=== PATIENT | male | born 1940 | race African-American/Black ===

== ENCOUNTER 2017-11-07 11:30 | Emergency (ER) | payer OTHER, MEDICARE ==
[2017-11-07] MEDS ORDERED: PREDNISONE 20 MG TABLET PO ONE (11:48)
--- NOTE | 2017-11-07 11:49 | ER Document Report ---
ED Respiratory Problem - General Chief Complaint: Chest Congestion Stated Complaint: COUGH CONGESTION Time Seen by Provider: 11/07/17 11:39 Mode of Arrival: Ambulatory Information source: Patient Notes: 77-year-old male presents to ED for cough cold congestion times a week. He states he was treated at the doctor's office with antibiotics with no relief. He states he is having more trouble breathing and has become more short of breath. Denies any history of asthma or COPD or any kind of heart problems he does have elevated blood pressure and cholesterol. TRAVEL OUTSIDE OF THE [place] IN LAST 30 DAYS: No - HPI Patient complains to provider of: Cough Onset: Last week Duration: Continuous Initiating Event: URI Quality of pain: Achy Severity: Moderate Pain Level: 3 Cough: Productive Sputum color: Yellow Sputum consistency: Thick Associated symptoms: Congestion, Cough, PND, Runny nose, Sinus pain/pressure, Short of breath Similar symptoms previously: Yes Recently seen / treated by doctor: Yes - Related Data Allergies/Adverse Reactions: No Known Allergies Allergy (Verified 11/07/17 11:31) Past Medical History - General Information source: Patient - Social History Smoking Status: Former Smoker Cigarette use (# per day): No Chew tobacco use (# tins/day): No Smoking Education Provided: No Frequency of alcohol use: Rare Drug Abuse: None Lives with: Family Family History: DM, Malignancy Patient has suicidal ideation: No Patient has homicidal ideation: No - Past Medical History Cardiac Medical History: Reports: Hx Hypercholesterolemia, Hx Hypertension Pulmonary Medical History: Reports: None EENT Medical History: Reports: None Neurological Medical History: Reports: None Endocrine Medical History: Reports: Hx Diabetes Mellitus Type 2 Renal/ Medical History: Reports: None Malignancy Medical History: Reports None GI Medical History: Reports: Other - Inguinal hernias bilaterally and a abdominal hernia Musculoskeltal Medical History: Reports Hx Arthritis - KNEES, SHOULDERS AND BACK Skin Medical History: Reports None Psychiatric Medical History: Reports: None Traumatic Medical History: Reports: None Infectious Medical History: Reports: None Past Surgical History: Reports: Hx Abdominal Surgery - hernia repair, Hx Inguinal Hernia - Bilateral - Immunizations Immunizations up to date: Yes Hx Diphtheria, Pertussis, Tetanus Vaccination: Yes Review of Systems - Review of Systems Constitutional: No symptoms reported EENT: Nose congestion, Nose discharge, Sinus pressure, Sinus discharge Cardiovascular: No symptoms reported Respiratory: Cough, Short of breath, Wheezing Gastrointestinal: No symptoms reported Genitourinary: No symptoms reported Male Genitourinary: No symptoms reported Musculoskeletal: No symptoms reported Skin: No symptoms reported Hematologic/Lymphatic: No symptoms reported Neurological/Psychological: No symptoms reported -: Yes All other systems reviewed and negative Physical Exam - Vital signs Vitals: Temp Pulse Resp BP Pulse Ox 98.2 F 98 18 154/80 H 93 11/07/17 11:35 11/07/17 11:35 11/07/17 11:35 11/07/17 11:35 11/07/17 11:35 Interpretation: Normal - General General appearance: Appears well, Alert - HEENT Head: Normocephalic, Atraumatic Eyes: Normal Pupils: PERRL Ears: Normal External canal: Normal Tympanic membrane: Normal Sinus: Normal Nasal: Purulent discharge, Swelling Mouth/Lips: Normal Mucous membranes: Normal Pharynx: Post nasal drainage Neck: Normal - Respiratory Respiratory status: No respiratory distress Chest status: Nontender Breath sounds: Decreased air movement. No: Rales, Rhonchi, Stridor, Wheezing Chest palpation: Normal - Cardiovascular Rhythm: Regular Heart sounds: Normal auscultation Murmur: No - Abdominal Inspection: Normal Distension: No distension Bowel sounds: Normal Tenderness: Nontender Organomegaly: No organomegaly - Back Back: Normal, Nontender - Extremities General upper extremity: Normal inspection, Nontender, Normal color, Normal ROM , Normal temperature General lower extremity: Normal inspection, Nontender, Normal color, Normal ROM , Normal temperature, Normal weight bearing. No: Candido's sign - Neurological Neuro grossly intact: Yes Cognition: Normal Orientation: AAOx4 [place] Coma Scale Eye Opening: Spontaneous [place] Coma Scale Verbal: Oriented [place] Coma Scale Motor: Obeys Commands [place] Coma Scale Total: 15 Speech: Normal Motor strength normal: LUE, RUE, LLE, RLE Sensory: Normal - Psychological Associated symptoms: Normal affect, Normal mood - Skin Skin Temperature: Warm Skin Moisture: Dry Skin Color: Normal Course - Re-evaluation Re-evalutation: 11/07/17 12:51 Consistent with an upper respiratory infection with decreased breath sounds. Patient was treated with steroids and albuterol and nebulizers. He was discharged home with a prescription for prednisone and albuterol inhaler. Patient was instructed to follow-up with his primary doctor today or tomorrow. - Vital Signs Vital signs: Temp Pulse Resp BP Pulse Ox 98.2 F 98 18 154/80 H 93 11/07/17 11:35 11/07/17 11:35 11/07/17 11:35 11/07/17 11:35 11/07/17 11:35 - Diagnostic Test Radiology reviewed: Image reviewed, Reports reviewed Discharge - Discharge Clinical Impression: URI (upper respiratory infection) Qualifiers: URI type: unspecified URI Qualified Code(s): J06.9 - Acute upper respiratory infection, unspecified HTN (hypertension) Qualifiers: Hypertension type: unspecified Qualified Code(s): I10 - Essential (primary) hypertension Condition: Stable Disposition: HOME, SELF-CARE Additional Instructions: UPPER RESPIRATORY ILLNESS: You have a viral infection of the respiratory passages -- a "cold." This common infection causes nasal congestion, drainage, and often sore throat and cough. It is highly contagious. The disease usually lasts about 10 to 14 days. There is no "cure" for the viral infection -- it must run its course. If there is a complication, such as bacterial infection in the nose, sinuses, middle ear, or bronchial tubes, antibiotics may be required. The antibiotics won't affect the virus. Drink plenty of fluids. A humidifier may help. An expectorant medication or decongestant may make you more comfortable. Use acetaminophen or ibuprofen for fever or aches. See the doctor if fever persists over two days, if there is any significant worsening of your symptoms, or if you simply fail to improve as expected. BRONCHOSPASM: You have tightness in the bronchial tubes, called bronchospasm. This often occurs with bronchial infections. Allergies, inhaled chemicals, and polluted or cold air can also provoke bronchospasm. It's more likely in patients with asthma in the family. Emergency treatment of bronchospasm may include adrenaline shots or bronchodilator aerosol. You may feel lightheaded and have a rapid pulse for an hour or two. Rest and get plenty of fluids. At home, we'll treat you with a bronchodilator inhaler. Antibiotics and corticosteroids may be required for some patients. Until you recover, avoid chemical fumes, dusts, pollens, and exercising in very cold or dry air. If you smoke, stop now!! If you develop a fever, increased wheezing, chest pain, or severe shortness of breath, you should contact the doctor immediately. COUGH-SUPPRESSANT & EXPECTORANT MEDICATION: You are to use a cough medication as needed for relief of symptoms. This medicine is a combination of an expectorant (to make the mucous thinner and more easily "coughed up") and a cough suppressant (to reduce the frequency of coughing). The cough-suppressant medicine is related to narcotics. You may experience mild nausea and sleepiness. Some patients who are very sensitive to narcotics may have stomach pain from this medicine. Taking the medicine with food reduces these side effects. Do not drive or work with machinery until you know how this medicine affects you. The expectorant should have no side effects. Iodine-containing expectorants (such as organidin) should not be taken by persons with active thyroid disease unless approved by your doctor. Call the doctor if you develop shortness of breath, hives, rash, itching, lightheadedness, or severe nausea and vomiting. INHALED BRONCHODILATORS: You have received a treatment of and/or prescription for an inhaled bronchodilator -- a medication which stimulates the airways in the lung to dilate. This improves the flow of air in asthma, bronchitis, and emphysema. These medicines have some similarity to adrenaline, and can cause similar side effects: shakiness, racing heart, and a sense of nervousness. These side effects decrease with time. Contact your doctor if these side effects are severe. Do not over-use the medicine. Too-frequent use of the inhaler may make it ineffective. Call your doctor if the inhaler is not controlling your symptoms at the prescribed doses. STEROID MEDICATION: You have been given an injection of or oral medicine of the cortisone/ steroid class. This medication is used to control inflammation or allergy. Raji t is usually only given for a short period of time, until the acute process subsides. There are usually no side effects from short-term use of cortisone-like medications. Some persons feel an increased sense of well-being and are not sleepy at bedtime. Long-term use of cortisone medications is best avoided, unless required for a severe condition. If your condition does not remit, or relapses after the course of corticosteroid medication, you should consult your physician. USE OF ACETAMINOPHEN (Tylenol): Acetaminophen may be taken for pain relief or fever control. It's much safer than aspirin, offering a wider range of "safe" dosages. It is safe during . Some brand names are Tylenol, Panadol, Datril, Anacin 3, Tempra, and Liquiprin. Acetaminophen can be repeated every four hours. The following are maximum recommended dosages: >89 pounds or adults 650 mg to 900 mg Acetaminophen can be repeated every four hours. Maximum dose not to exceed 4000 mg a day. FOLLOW-UP CARE: If you have been referred to a physician for follow-up care, call the physician s office for an appointment as you were instructed or within the next two days. If you experience worsening or a significant change in your symptoms, notify the physician immediately or return to the Emergency Department at any time for re-evaluation. Prescriptions: Albuterol Sulfate [Proair HFA Inhalation Aerosol 8.5 gm MDI] 2 puff IH Q4H PRN # 1 mdi PRN Reason: Prednisone [Deltasone 20 mg Tablet] 3 tab PO DAILY 5 Days tablet Forms: Elevated Blood Pressure Referrals: ROGER AMEZCUA MD [ACTIVE STAFF] - Follow up as needed
[2017-11-07] MEDS: ALBUTEROL SULFATE 0.083% NEB 2.5 MG/3 ML AMPUL NEB SCH ×3 (12:10→12:55)
--- NOTE | 2017-11-07 12:15 | RADIOLOGY REPORT (SQ) ---
EXAM DESCRIPTION: CHEST PA/LAT COMPLETED DATE/TIME: 11/07/2017 12:03 pm REASON FOR STUDY: Cough congestion decreased breath sounds COMPARISON: April 2007 EXAM PARAMETERS: NUMBER OF VIEWS: two views TECHNIQUE: Digital Frontal and Lateral radiographic views of the chest acquired. RADIATION DOSE: NA LIMITATIONS: none FINDINGS: LUNGS AND PLEURA: No opacities, masses or pneumothorax. No pleural effusion. MEDIASTINUM AND HILAR STRUCTURES: No masses or contour abnormalities. HEART AND VASCULAR STRUCTURES: Heart normal size. Tortuous thoracic aorta is identified. No evidenc e for failure. BONES: No acute findings. HARDWARE: None in the chest. OTHER: No other significant finding. IMPRESSION: NO SIGNIFICANT RADIOGRAPHIC FINDING IN THE CHEST. TECHNICAL DOCUMENTATION: JOB ID: [id number] [employer]- All Rights Reserved
[2017-11-07 13:19] VITALS: BP 147/73
== END 2017-11-07 13:18 | disposition home or self-care (01) ==
LOC: ER 11:30
DX: J06.9 Acute upper respiratory infection, unspecified (principal); R09.89 Other specified symptoms and signs involving the circulatory and respiratory systems; R06.02 Shortness of breath; R05 Cough; J34.89 Other specified disorders of nose and nasal sinuses; R09.82 Postnasal drip; R09.81 Nasal congestion; R06.2 Wheezing; I10 Essential (primary) hypertension; E11.9 Type 2 diabetes mellitus without complications; Z87.891 Personal history of nicotine dependence
CPT/HCPCS: 94640 ×2; 99283; 71046; J7512

== ENCOUNTER 2018-11-12 09:33 | Emergency (ER) | payer OTHER, MEDICARE ==
[2018-11-12] MEDS ORDERED: ASPIRIN 81 MG TABLET, CHEWABLE PO ONE (10:18)
--- NOTE | 2018-11-12 10:20 | ER Document Report ---
ED Medical Screen (RME) - General Chief Complaint: Chest Pain Stated Complaint: CHEST PAIN Time Seen by Provider: 11/12/18 10:18 Notes: 78 years old male with history of hypertension presents today with 2-day history of substernal pain described as burning sensation. States it came on after taking 4 pills in milk yesterday morning. Denies any nausea vomiting palpitation or diaphoresis. TRAVEL OUTSIDE OF THE [place] IN LAST 30 DAYS: No - Related Data Allergies/Adverse Reactions: No Known Allergies Allergy (Verified 11/12/18 09:36) Past Medical History - Social History Chew tobacco use (# tins/day): No Frequency of alcohol use: Rare Drug Abuse: None - Past Medical History Cardiac Medical History: Reports: Hx Hypercholesterolemia, Hx Hypertension Endocrine Medical History: Reports: Hx Diabetes Mellitus Type 2 Renal/ Medical History: Denies: Hx Peritoneal Dialysis Musculoskeltal Medical History: Reports Hx Arthritis - KNEES, SHOULDERS AND BACK Past Surgical History: Reports: Hx Abdominal Surgery - hernia repair, Hx Inguinal Hernia - Bilateral - Immunizations Immunizations up to date: Yes Hx Diphtheria, Pertussis, Tetanus Vaccination: Yes Physical Exam - Vital signs Vitals: Temp Pulse Resp BP Pulse Ox 98.5 F 95 20 159/87 H 93 11/12/18 09:58 11/12/18 09:58 11/12/18 09:58 11/12/18 09:58 11/12/18 09:58 Course - Vital Signs Vital signs: Temp Pulse Resp BP Pulse Ox 98.5 F 95 20 159/87 H 93 11/12/18 09:58 11/12/18 09:58 11/12/18 09:58 11/12/18 09:58 11/12/18 09:58
--- NOTE | 2018-11-12 10:37 | RADIOLOGY REPORT (SQ) ---
EXAM DESCRIPTION: CHEST SINGLE VIEW COMPLETED DATE/TIME: 11/12/2018 10:27 am REASON FOR STUDY: Chest pain COMPARISON: 11/07/2017 EXAM PARAMETERS: NUMBER OF VIEWS: One view. TECHNIQUE: Single frontal radiographic view of the chest acquired. RADIATION DOSE: NA LIMITATIONS: None. FINDINGS: LUNGS AND PLEURA: No opacities, masses or pneumothorax. No pleural effusion. MEDIASTINUM AND HILAR STRUCTURES: Calcified hilar nodes. Stable prominent central vasculature withou t overt edema. HEART AND VASCULAR STRUCTURES: Normal heart size. Unfolded thoracic aorta, stable. BONES: No acute findings. HARDWARE: None in the chest. OTHER: No other significant finding. IMPRESSION: No evidence of acute cardiopulmonary process. TECHNICAL DOCUMENTATION: JOB ID: [id number] [employer]- All Rights Reserved Reading location - IP/workstation name: [email or web address]
--- NOTE | 2018-11-12 11:07 | EKG REPORT ---
SEVERITY:- ABNORMAL ECG - SINUS RHYTHM LEFT VENTRICULAR HYPERTROPHY NONSPECIFIC ST-T CHANGES- INFERIOR LEADS : Confirmed by: Aris Fry MD 12-Nov-2018 11:06:23
[2018-11-12 12:03] LABS: ABSOLUTE EOSINOPHILS # (AUTO) 0.1 10^3/uL (0.0-0.6); ABSOLUTE LYMPHOCYTES (AUTO) 0.9 10^3/uL (0.5-4.7); ABSOLUTE MONOCYTES (AUTO) 0.3 10^3/uL (0.1-1.4); ABSOLUTE NEUT (AUTO) 3.1 10^3/uL (1.7-8.2); BASOPHILS % (AUTO) 0.7 % (0-2); HEMATOCRIT 41.2 % (37.9-51.0); HEMOGLOBIN 13.8 g/dL (13.5-17.0); LYMPHOCYTES % (AUTO) 20.5 % (13-45); MEAN CORPUSCULAR HEMOGLOBIN 30.2 pg (27.0-33.4); MEAN CORPUSCULAR HGB CONC 33.5 g/dL (32.0-36.0); MEAN CORPUSCULAR VOLUME 90 fl (80-97); MONOCYTES % (AUTO) 7.4 % (3-13); PLATELET COUNT 165 10^3/uL (150-450); RED BLOOD COUNT 4.57 10^6/uL (4.35-5.55); RED CELL DISTRIBUTION WIDTH 13.9 % (11.5-14.0); SEGMENTED NEUTROPHILS % (AUTO) 69.4 % (42-78); TOTAL CELLS COUNTED % (AUTO) 100 %; WHITE BLOOD COUNT 4.5 10^3/uL (4.0-10.5)
[2018-11-12 12:35] LABS: CREATINE KINASE MB 0.57 ng/mL (<4.55)
[2018-11-12 12:36] LABS: TROPONIN I < 0.012 ng/mL
--- NOTE | 2018-11-12 13:24 | ER Document Report ---
ED General - General Chief Complaint: Chest Pain Stated Complaint: CHEST PAIN Time Seen by Provider: 11/12/18 10:18 TRAVEL OUTSIDE OF THE [place] IN LAST 30 DAYS: No - HPI Notes: Patient is a 78-year-old male with a history of hypertension, GERD, and type 2 diabetes who presents to the emergency department for primary complaint that his blood pressure was higher than normal when he was at his foot doctors today. Patient does go on to state that yesterday he took his medicines with milk and noticed indigestion immediately thereafter which was resolved immediately with water intake and food. Patient states that he did not have any other issues until early this morning when he felt some more indigestion burning in the chest which then resolved after 1-2 minutes. Patient states that his blood pressure is usually 130 systolic over 70s or 80s. Patient states that he did not take his Lasix today, however. Patient states that the discomfort never radiated and he has felt symptoms like this previously with indigestion. He denies any significant cardiac pulmonary medical history otherwise. He was recently treated for an upper respiratory infection about a week ago. He has been eating and drinking without difficulty. He is urinating normally and having normal bowel movements. He has no other concerns or complaints. Denies any headache, fever, neck pain, URI, sore throat, palpitations, syncope, cough, shortness of breath, wheeze, dyspnea, abdominal pain, nausea/vomiting/diarrhea, urinary retention, dysuria, hematuria, back pain, or rash. - Related Data Allergies/Adverse Reactions: No Known Allergies Allergy (Verified 11/12/18 09:36) Past Medical History - Social History Smoking Status: Never Smoker Chew tobacco use (# tins/day): No Frequency of alcohol use: Rare Drug Abuse: None Family History: DM, Malignancy Patient has suicidal ideation: No Patient has homicidal ideation: No - Past Medical History Cardiac Medical History: Reports: Hx Hypercholesterolemia, Hx Hypertension Endocrine Medical History: Reports: Hx Diabetes Mellitus Type 2 Renal/ Medical History: Denies: Hx Peritoneal Dialysis Musculoskeletal Medical History: Reports Hx Arthritis - KNEES, SHOULDERS AND BACK Past Surgical History: Reports: Hx Abdominal Surgery - hernia repair, Hx Inguinal Hernia - Bilateral - Immunizations Immunizations up to date: Yes Hx Diphtheria, Pertussis, Tetanus Vaccination: Yes Review of Systems - Review of Systems -: Yes All other systems reviewed and negative Physical Exam - Vital signs Vitals: Temp Pulse Resp BP Pulse Ox 98.5 F 95 20 159/87 H 93 11/12/18 09:58 11/12/18 09:58 11/12/18 09:58 11/12/18 09:58 11/12/18 09:58 - Notes Notes: PHYSICAL EXAMINATION: GENERAL: Well-appearing, well-nourished and in no acute distress. HEAD: Atraumatic, normocephalic. EYES: Pupils equal round and reactive to light, extraocular movements intact, sclera anicteric, conjunctiva are normal. ENT: Nares patent and without discharge. oropharynx clear without exudates. No tonsilar hypertrophy or erythema. Moist mucous membranes. NECK: Normal range of motion, supple without lymphadenopathy LUNGS: Breath sounds clear to auscultation bilaterally and equal. No wheezes rales or rhonchi. HEART: Regular rate and rhythm without murmurs, rubs, gallops. ABDOMEN: Soft, nontender, nondistended abdomen. No guarding, no rebound. Normal bowel sounds present. No CVA tenderness bilaterally. Musculoskeletal: FROM to passive/active. Strength 5+/5. Candido neg. No asymmetry to LE's. Extremities: No cyanosis, clubbing, or edema b/l. Peripheral pulses 2+. Capillary refill less than 3 seconds. NEUROLOGICAL: Normal speech, normal gait. PSYCH: Normal mood, normal affect. SKIN: Warm, Dry, normal turgor, no rashes or lesions noted. Course - Re-evaluation Re-evalutation: 11/12/18 13:26 Patient states that he came because of his blood pressure and has not had any chest discomfort since the initial burning earlier this morning. Patient states that he was able to ambulate without any dyspnea on exertion or any development of pain. The only blood pressure pill he did not take this morning was his Lasix because he did not have any food in his stomach at that time. Otherwise, patient states that he feels well and has no other concerns. We will wait for his labs to return and further evaluate at that time. 11/12/18 16:15 Patient is an afebrile, well-hydrated 78-year-old male who presents to the ED with elevated blood pressure and chest pain, unspecified, but I have a suspicion for indigestion as etiology. Vitals are acceptable without any significant tachycardia, tachypnea, or hypoxia. PE is otherwise unremarkable. Patient is nontoxic-appearing and is tolerating p.o. without any difficulties. Pt is currently asymptomatic and has been since the 'burning' sensation this morning that lasted only a brief time with similar incident the day prior that was resolved with food and water immediately after onset. CBC, CMP, EKG/cardiac enzymes 2, BNP, chest x-ray are all unremarkable for any acute pathology. Patient does not have any chest pain, dyspnea, or shortness of breath. He presented only because his blood pressure was elevated (asymptomatic). Patient's presentation and symptomatology creates low suspicion for ACS, PE, pneumothorax, pericarditis, dissection, respiratory compromise, severe dehydration, sepsis, meningitis, or other systemic emergent condition at this time. Patient is aware that his condition can change from initial presentation and he needs to monitor symptoms closely and seek medical attention for any acute changes. Pt is feeling better and would like to go home. Pt is already on prilosec. Recommend conservative measures for symptoms. Recheck with your PCM in 2-3 days. Consider consult with Cardiology. Return to the ED with any worsening/concerning symptoms otherwise as reviewed in discharge. Patient is in agreement. - Vital Signs Vital signs: Temp Pulse Resp BP Pulse Ox 98.5 F 95 16 146/86 H 94 11/12/18 09:58 11/12/18 09:58 11/12/18 16:02 11/12/18 16:02 11/12/18 16:02 - Laboratory Result Diagrams: 11/12/18 11:36 11/12/18 13:00 Laboratory results interpreted by me: 11/12/18 13:00 Carbon Dioxide 34 H Discharge - Discharge Clinical Impression: Elevated blood pressure reading, Atypical chest pain Condition: Stable Disposition: HOME, SELF-CARE Instructions: Chest Pain of Unclear Cause ([facility]) Additional Instructions: Maintain adequate fluid and food intake Take home medications as directed healthy diet/exercise Monitor blood pressure daily and keep a log Monitor symptoms for any acute changes Recheck with your PCM in 2-3 days Consider a follow-up with cardiology Return to the ED with any worsening symptoms and/or development of fever, heada dianna, chest pain, palpitations, syncope, shortness of breath, trouble breathing, abdominal pain, n/v/d, blood in stool/urine, loss of control of bowel/bladder, urinary retention, muscle weakness/paralysis, numbness/tingling, or other worsening symptoms that are concerning to you. Forms: Elevated Blood Pressure Referrals: ROGER AMEZCUA MD [Primary Care Provider] - 11/14/18
[2018-11-12 13:38] LABS: ALANINE AMINOTRANSFERASE 24 U/L (21-72); ALBUMIN 4.9 g/dL (3.5-5.0); ALKALINE PHOSPHATASE 59 U/L (38-126); ANION GAP 7 (5-19); ASPARTATE AMINO TRANSFERASE 17 U/L (17-59); BILIRUBIN,DIRECT 0.2 mg/dL (0.0-0.4); BILIRUBIN,TOTAL 0.6 mg/dL (0.2-1.3); BLOOD UREA NITROGEN 15 mg/dL (7-20); CALCIUM 9.5 mg/dL (8.4-10.2); CARBON DIOXIDE 34 mmol/L (22-30); CHLORIDE 102 mmol/L (98-107); CREATINE KINASE 98 U/L (55-170); GLUCOSE 85 mg/dL (75-110); POTASSIUM 4.4 mmol/L (3.6-5.0); SODIUM 143.2 mmol/L (137-145); TOTAL PROTEIN 8.1 g/dL (6.3-8.2)
[2018-11-12 14:21] LABS: NT PRO BNP 22 pg/mL (<450)
[2018-11-12 14:22] LABS: TROPONIN I < 0.012 ng/mL
[2018-11-12 16:27] VITALS: BP 149/81
== END 2018-11-12 16:16 | disposition home or self-care (01) ==
LOC: ER 09:33
DX: I10 Essential (primary) hypertension (principal); T50.1X6A Underdosing of loop [high-ceiling] diuretics, initial encounter; Z91.128 Patient's intentional underdosing of medication regimen for other reason; Z91.14 Patient's other noncompliance with medication regimen; R07.89 Other chest pain; E11.9 Type 2 diabetes mellitus without complications; Z79.899 Other long term (current) drug therapy
CPT/HCPCS: 36415; 71045; 80053; 82550; 82553; 83880; 84484; 85025; 93005; 93010; 99285

== ENCOUNTER → 2018-11-19 | Outpatient (CLI) | payer OTHER, MEDICARE ==
[~2018-11-19] MED LIST: REGADENOSON INJ 0.4 MG/5 ML DISP.SYRIN IV ONE
--- NOTE | 2018-11-21 23:41 | DRAGON STRESS TEST REPORT ---
Intravenous Lexiscan Cardiolite stress test using single photon emmision computerized tomography. Date of procedure: 11/19/2018. Ordering Provider Dr. Fran Bullard.:Patient's status: Out Patient. Indication: Chest pain. Coronary risk factors: Age, diabetes mellitus, hypertension, and dyslipidemia. Resting EKG: Sinus Rhythm. Nonspecific ST-T changes lateral leads. Stress EKG: No changes of ischemia. The patient had no chest pain or discomfort, and there were no arrhythmias seen. Reason for termination: Protocol. Conclusions: Normal EKG and hemodynamic response to IV Lexiscan. Nuclear data: At rest the patient was given 14.97 millicuries of technetium 99m sestamibi injected intravenously. As per protocol rest non gated SPECT images were obtained. Subsequently the patient was given intravenous Lexiscan at a dose of 0.4 mg in 5 mL intravenously, followed by flush with normal saline. Subsequently the stress dose of 45.7 millicuries of technetium 99m sestamibi was injected intravenously. As per protocol stress gated images were obtained. Nuclear interpretation: Review of images showed that all segments of the myocardium had normal perfusion at rest, and normal perfusion post stress with IV Lexiscan. All segments of the myocardium had normal motion, contraction, and thickening by gated study. T. I D. ratio was normal at 1.00. There is no transient ischemic dilatation of the left ventricle. Computer read rest, and stress left ventricular ejection fraction were 55 %, and 54 %, respectively. Visually both the stress and rest ejection fractions were normal, and greater than 55%. Conclusion: 1. There is no scintigraphic evidence of Lexiscan induced myocardial ischemia. 2. There is no scintigraphic evidence of myocardial infarction/scar. Recommendations: Aggressive risk factor modification, and treating the underlying co- morbidities. [facility]
== END ==
LOC: RAD 07:45
PROVIDERS: ATTEND Internal Medicine
DX: R07.9 Chest pain, unspecified (principal)
CPT/HCPCS: 93017; 78452; A9500; J2785; Q9969

== ENCOUNTER 2020-01-16 11:15 | Emergency (ER) | payer OTHER, MEDICARE ==
--- NOTE | 2020-01-16 11:48 | ER Document Report ---
ED Medical Screen (RME) - General Chief Complaint: Allergy Symptoms Stated Complaint: ALLERGY SYMPTOMS Time Seen by Provider: 01/16/20 11:41 Primary Care Provider: ROGER AMEZCUA MD [Primary Care Provider] - Follow up as needed Mode of Arrival: Ambulatory Information source: Patient Notes: 80-year-old male with high blood pressure presents emergency department with complaints of headache and bad cough. Reports the cough kept him up all night. Denies fever vomiting diarrhea. Reports history of seasonal allergies. Also complains of chronic back and leg pain. Patient does complain of some chest pain but only when he coughs. I have greeted and performed a rapid initial assessment of this patient. A comprehensive ED assessment and evaluation of the patient, analysis of test results and completion of the medical decision making process will be conducted by additional ED providers. TRAVEL OUTSIDE OF THE [place] IN LAST 30 DAYS: No - Related Data Allergies/Adverse Reactions: No Known Allergies Allergy (Verified 01/16/20 11:41) Past Medical History - Past Medical History Cardiac Medical History: Reports: Hx Hypercholesterolemia, Hx Hypertension Endocrine Medical History: Reports: Hx Diabetes Mellitus Type 2 Renal/ Medical History: Denies: Hx Peritoneal Dialysis Musculoskeltal Medical History: Reports Hx Arthritis - KNEES, SHOULDERS AND BACK Past Surgical History: Reports: Hx Abdominal Surgery - hernia repair, Hx Inguinal Hernia - Bilateral - Immunizations Immunizations up to date: Yes Hx Diphtheria, Pertussis, Tetanus Vaccination: Yes Physical Exam - Vital signs Vitals: Temp Pulse Resp BP Pulse Ox 98.7 F 113 H 16 160/79 H 95 01/16/20 11:20 01/16/20 11:20 01/16/20 11:20 01/16/20 11:20 01/16/20 11:20 Course - Vital Signs Vital signs: Temp Pulse Resp BP Pulse Ox 98.7 F 113 H 16 160/79 H 95 01/16/20 11:20 01/16/20 11:20 01/16/20 11:20 01/16/20 11:20 01/16/20 11:20 Doctor's Discharge - Discharge Referrals: ROGER AMEZCUA MD [Primary Care Provider] - Follow up as needed
--- NOTE | 2020-01-16 12:19 | RADIOLOGY REPORT (SQ) ---
EXAM DESCRIPTION: CHEST 2 VIEWS COMPLETED DATE/TIME: 01/16/2020 12:02 pm REASON FOR STUDY: cough COMPARISON: Chest radiographs 11/12/2018 and 11/07/2017 EXAM PARAMETERS: NUMBER OF VIEWS: two views TECHNIQUE: Digital Frontal and Lateral radiographic views of the chest acquired. RADIATION DOSE: NA LIMITATIONS: none FINDINGS: LUNGS AND PLEURA: No opacities, masses or pneumothorax. No pleural effusion. MEDIASTINUM AND HILAR STRUCTURES: Unchanged cardiomediastinal contours are tortuosity of the thoracic aorta. HEART AND VASCULAR STRUCTURES: Heart normal size. No evidence for failure. BONES: No acute findings. HARDWARE: None in the chest. OTHER: No other significant finding. IMPRESSION: Unchanged chest. No acute pulmonary findings. TECHNICAL DOCUMENTATION: JOB ID: [id number] 2010 [employer]- All Rights Reserved Reading location - IP/workstation name: [email or web address]
[2020-01-16 12:27] LABS: ABSOLUTE EOSINOPHILS # (AUTO) 0.1 10^3/uL (0.0-0.6); ABSOLUTE LYMPHOCYTES (AUTO) 0.4 10^3/uL (0.5-4.7); ABSOLUTE MONOCYTES (AUTO) 0.7 10^3/uL (0.1-1.4); ABSOLUTE NEUT (AUTO) 3.9 10^3/uL (1.7-8.2); BASOPHILS % (AUTO) 0.5 % (0-2); EOSINOPHILS % (AUTO) 1.6 % (0-6); HEMATOCRIT 38.5 % (37.9-51.0); HEMOGLOBIN 13.1 g/dL (13.5-17.0); MEAN CORPUSCULAR HEMOGLOBIN 30.6 pg (27.0-33.4); MEAN CORPUSCULAR HGB CONC 34.1 g/dL (32.0-36.0); MEAN CORPUSCULAR VOLUME 90 fl (80-97); MONOCYTES % (AUTO) 13.4 % (3-13); PLATELET COUNT 147 10^3/uL (150-450); RED BLOOD COUNT 4.29 10^6/uL (4.35-5.55); SEGMENTED NEUTROPHILS % (AUTO) 77.5 % (42-78); TOTAL CELLS COUNTED % (AUTO) 100 %
[2020-01-16 12:47] LABS: ALBUMIN 4.1 g/dL (3.5-5.0); ALKALINE PHOSPHATASE 60 U/L (38-126); ANION GAP 7 (5-19); ASPARTATE AMINO TRANSFERASE 20 U/L (17-59); BILIRUBIN,DIRECT 0.2 mg/dL (0.0-0.4); BILIRUBIN,TOTAL 0.7 mg/dL (0.2-1.3); BLOOD UREA NITROGEN 17 mg/dL (7-20); CALCIUM 8.9 mg/dL (8.4-10.2); CARBON DIOXIDE 33 mmol/L (22-30); CHLORIDE 99 mmol/L (98-107); GLUCOSE 116 mg/dL (75-110); POTASSIUM 4.1 mmol/L (3.6-5.0); TOTAL PROTEIN 7.5 g/dL (6.3-8.2)
--- NOTE | 2020-01-16 13:43 | ER Document Report ---
ED General - General Chief Complaint: Cough Stated Complaint: ALLERGY SYMPTOMS Time Seen by Provider: 01/16/20 11:41 Primary Care Provider: ROGER AMEZCUA MD [Primary Care Provider] - Follow up as needed Mode of Arrival: Ambulatory Notes: Patient is a 80-year-old -K[place] male with a past medical history of seasonal allergies and hypertension who presents to the emergency department with a chief complaint of cough that began about 2 days ago. Patient reports he took some Mucinex and some Zyrtec with minimal relief. He states he was exposed to some friends at the [facility] recently who were sick with cough. He states the cough is primarily dry in nature. He is unsure of any fever. Denies any sore throat, body aches, vomiting or diarrhea. Does admit to some occasional sne ezing and watery eyes. TRAVEL OUTSIDE OF THE [place] IN LAST 30 DAYS: No - Related Data Allergies/Adverse Reactions: No Known Allergies Allergy (Verified 01/16/20 11:41) Home Medications: htn. dm Past Medical History - General Information source: Patient - Social History Smoking Status: Former Smoker Chew tobacco use (# tins/day): No Frequency of alcohol use: Occasional Drug Abuse: None Family History: DM, Malignancy Patient has suicidal ideation: No Patient has homicidal ideation: No - Past Medical History Cardiac Medical History: Reports: Hx Hypercholesterolemia, Hx Hypertension Endocrine Medical History: Reports: Hx Diabetes Mellitus Type 2 Renal/ Medical History: Denies: Hx Peritoneal Dialysis Musculoskeletal Medical History: Reports Hx Arthritis - KNEES, SHOULDERS AND BACK Past Surgical History: Reports: Hx Abdominal Surgery - hernia repair, Hx Inguinal Hernia - Bilateral - Immunizations Immunizations up to date: Yes Hx Diphtheria, Pertussis, Tetanus Vaccination: Yes Review of Systems - Review of Systems Notes: As per HPI otherwise negative Physical Exam - Vital signs Vitals: Temp Pulse Resp BP Pulse Ox 98.7 F 113 H 16 160/79 H 95 01/16/20 11:20 01/16/20 11:20 01/16/20 11:20 01/16/20 11:20 01/16/20 11:20 - General General appearance: Appears well, Alert In distress: None - HEENT Head: Normocephalic, Atraumatic Eyes: Normal Conjunctiva: Normal Extraocular movements intact: Yes Eyelashes: Normal Pupils: PERRL Ears: Normal External canal: Normal Tympanic membrane: Normal Sinus: Normal Nasal: Normal Mouth/Lips: Normal Mucous membranes: Normal Pharynx: Normal Neck: Normal - Respiratory Respiratory status: Other - Decreased breath sounds throughout Chest status: Nontender Breath sounds: Decreased air movement Chest palpation: Normal - Cardiovascular Rhythm: Regular Heart sounds: Normal auscultation - Neurological Neuro grossly intact: Yes Cognition: Normal Orientation: AAOx4 [place] Coma Scale Eye Opening: Spontaneous [place] Coma Scale Verbal: Oriented [place] Coma Scale Motor: Obeys Commands [place] Coma Scale Total: 15 Speech: Normal - Psychological Associated symptoms: Normal affect, Normal mood - Skin Skin Temperature: Warm Skin Moisture: Dry Skin Color: Normal Course - Re-evaluation Re-evalutation: 01/16/20 13:45 Patient is a mixed presentation upon my evaluation of him. He denies any recent travel or known exposures to patients under investigation for the novel coronavirus however he does admit to being exposed to some individuals who are sick at a local [employer]. I suspect the etiology of his cough and other symptoms are from allergic rhinitis however novel coronavirus is in the differential. His chest x-ray was negative. Work-up otherwise not remarkable for significant infection. Will swab him for influenza. If negative he will be tested for novel coronavirus. He is in a room with a mask on behind a close door at this time. 01/16/20 15:39 Flu swabs negative. Patient was tested for the novel coronavirus. He is now a patient under investigation. He was explained in depth how to self quarantine at home. He was given the necessary paperwork and information. We will give him Tessalon Perles for cough and Claritin for allergy symptoms. Counseled him at length regarding the importance of outpatient follow-up and advised to return here or any ER immediately with any new, persistent or worsening symptoms. He verbalized understood and agreed. - Vital Signs Vital signs: Temp Pulse Resp BP Pulse Ox 98.7 F 113 H 16 160/79 H 95 01/16/20 11:20 01/16/20 11:20 01/16/20 11:20 01/16/20 11:20 01/16/20 11:20 - Laboratory Result Diagrams: 01/16/20 12:15 01/16/20 12:15 Laboratory results interpreted by me: 01/16/20 01/16/20 12:15 12:15 RBC 4.29 L Hgb 13.1 L Plt Count 147 L Lymph % (Auto) 7.0 L Leake % (Auto) 13.4 H Absolute Lymphs (auto) 0.4 L Carbon Dioxide 33 H Glucose 116 H Discharge - Discharge Clinical Impression: PUI Covid-19, Cough Allergic rhinitis Qualifiers: Allergic rhinitis trigger: other Allergic rhinitis seasonality: unspecified Qualified Code(s): J30.89 - Other allergic rhinitis Condition: Stable Disposition: HOME, SELF-CARE Instructions: Hay Fever ([facility]) Additional Instructions: Please self quarantine at home while you are awaiting results of your coronavirus testing today. Return here or any ER immediately with any new, persistent or worsening symptoms. Prescriptions: Benzonatate [Tessalon Perles 100 mg Capsule] 100 mg PO Q8HP PRN #20 capsule PRN Reason: Loratadine [Allergy Relief] 10 mg PO DAILY #20 tablet Referrals: ROGER AMEZCUA MD [Primary Care Provider] - Follow up as needed
[2020-01-16 14:27] LABS: A TYPE INFLUENZA AG NEGATIVE (NEGATIVE); B INFLUENZA AG NEGATIVE (NEGATIVE)
[2020-01-16 16:30] VITALS: BP 164/77
--- NOTE | 2020-01-18 00:27 | EKG REPORT ---
SEVERITY:- ABNORMAL ECG - SINUS TACHYCARDIA PROBABLE LVH WITH SECONDARY REPOL ABNRM : Confirmed by: Claire Post 18-Jan-2020 00:27:33
== END 2020-01-16 16:27 | disposition home or self-care (01) ==
LOC: ER 11:15
DX: J30.2 Other seasonal allergic rhinitis (principal); R05 Cough; R06.7 Sneezing; I10 Essential (primary) hypertension; E11.9 Type 2 diabetes mellitus without complications; Z79.899 Other long term (current) drug therapy; Z87.891 Personal history of nicotine dependence; Z20.828 Contact with and (suspected) exposure to other viral communicable diseases
CPT/HCPCS: 36415; 71046; 80053; 84484; 85025; 87635; 87804; 93005; 93010; 99284

== ENCOUNTER → 2020-03-29 | Outpatient (CLI) | payer OTHER, MEDICARE ==
[2020-03-29 12:34] LABS: ABSOLUTE EOSINOPHILS # (AUTO) 0.1 10^3/uL (0.0-0.6); ABSOLUTE LYMPHOCYTES (AUTO) 1.1 10^3/uL (0.5-4.7); ABSOLUTE MONOCYTES (AUTO) 0.4 10^3/uL (0.1-1.4); ABSOLUTE NEUT (AUTO) 2.7 10^3/uL (1.7-8.2); BASOPHILS % (AUTO) 0.9 % (0-2); HEMATOCRIT 41.5 % (37.9-51.0); HEMOGLOBIN 14.2 g/dL (13.5-17.0); LYMPHOCYTES % (AUTO) 25.5 % (13-45); MEAN CORPUSCULAR HEMOGLOBIN 30.3 pg (27.0-33.4); MEAN CORPUSCULAR HGB CONC 34.3 g/dL (32.0-36.0); MEAN CORPUSCULAR VOLUME 88 fl (80-97); MONOCYTES % (AUTO) 9.4 % (3-13); PLATELET COUNT 170 10^3/uL (150-450); RED CELL DISTRIBUTION WIDTH 13.7 % (11.5-14.0); SEGMENTED NEUTROPHILS % (AUTO) 61.2 % (42-78); TOTAL CELLS COUNTED % (AUTO) 100 %; WHITE BLOOD COUNT 4.4 10^3/uL (4.0-10.5)
[2020-03-29 12:58] LABS: ALBUMIN 4.8 g/dL (3.5-5.0); ALKALINE PHOSPHATASE 51 U/L (38-126); ANION GAP 8 (5-19); BILIRUBIN,TOTAL 0.6 mg/dL (0.2-1.3); BLOOD UREA NITROGEN 19 mg/dL (7-20); CALCIUM 9.2 mg/dL (8.4-10.2); CARBON DIOXIDE 34 mmol/L (22-30); CHLORIDE 97 mmol/L (98-107); CHOLESTEROL 107.74 mg/dL (0-200); GLUCOSE 126 mg/dL (75-110); POTASSIUM 4.2 mmol/L (3.6-5.0); TOTAL PROTEIN 7.8 g/dL (6.3-8.2); TRIGLYCERIDES 47 mg/dL (<150)
[2020-03-29 12:59] LABS: ASPARTATE AMINO TRANSFERASE 18 U/L (17-59)
[2020-03-29 13:09] LABS: DIRECT LDL 59 mg/dL (<100)
== END ==
LOC: OD 11:37
PROVIDERS: ATTEND Internal Medicine
DX: I10 Essential (primary) hypertension (principal); I73.9 Peripheral vascular disease, unspecified; E78.5 Hyperlipidemia, unspecified; E11.9 Type 2 diabetes mellitus without complications
CPT/HCPCS: 36415; 80053; 80061; 83036; 83735; 84443; 85025

== ENCOUNTER → 2020-08-23 | Outpatient (CLI) | payer MEDICARE, OTHER ==
[2020-08-23 14:35] LABS: ABSOLUTE LYMPHOCYTES (AUTO) 0.7 10^3/uL (0.5-4.7); ABSOLUTE MONOCYTES (AUTO) 0.5 10^3/uL (0.1-1.4); ABSOLUTE NEUT (AUTO) 2.3 10^3/uL (1.7-8.2); BASOPHILS % (AUTO) 0.5 % (0-2); EOSINOPHILS % (AUTO) 0.5 % (0-6); HEMATOCRIT 38.2 % (37.9-51.0); MEAN CORPUSCULAR HEMOGLOBIN 30.5 pg (27.0-33.4); MEAN CORPUSCULAR HGB CONC 34.1 g/dL (32.0-36.0); MEAN CORPUSCULAR VOLUME 89 fl (80-97); MONOCYTES % (AUTO) 13.1 % (3-13); PLATELET COUNT 134 10^3/uL (150-450); RED BLOOD COUNT 4.27 10^6/uL (4.35-5.55); RED CELL DISTRIBUTION WIDTH 14.3 % (11.5-14.0); SEGMENTED NEUTROPHILS % (AUTO) 65.9 % (42-78); TOTAL CELLS COUNTED % (AUTO) 100 %; WHITE BLOOD COUNT 3.6 10^3/uL (4.0-10.5)
[2020-08-23 14:56] LABS: ALBUMIN 4.2 g/dL (3.5-5.0); ALKALINE PHOSPHATASE 58 U/L (38-126); ANION GAP 10 (5-19); ASPARTATE AMINO TRANSFERASE 20 U/L (17-59); BILIRUBIN,DIRECT 0.3 mg/dL (0.0-0.4); BILIRUBIN,TOTAL 0.5 mg/dL (0.2-1.3); BLOOD UREA NITROGEN 12 mg/dL (7-20); CALCIUM 8.8 mg/dL (8.4-10.2); CARBON DIOXIDE 28 mmol/L (22-30); CHLORIDE 103 mmol/L (98-107); CHOLESTEROL 94.45 mg/dL (0-200); GLUCOSE 88 mg/dL (75-110); POTASSIUM 4.1 mmol/L (3.6-5.0); TOTAL PROTEIN 7.2 g/dL (6.3-8.2); TRIGLYCERIDES 52 mg/dL (<150)
[2020-08-23 15:06] LABS: DIRECT LDL 41 mg/dL (<100)
== END ==
LOC: OD 12:56
PROVIDERS: ATTEND Internal Medicine
DX: E78.5 Hyperlipidemia, unspecified (principal); E11.22 Type 2 diabetes mellitus with diabetic chronic kidney disease; N18.9 Chronic kidney disease, unspecified; R53.83 Other fatigue
CPT/HCPCS: 36415; 80053; 80061; 83036; 83735; 84443; 85025

== ENCOUNTER 2020-08-30 11:02 | Inpatient (IN) | payer MEDICARE, OTHER ==
[~2020-08-30 11:02] MED LIST changes: -REGADENOSON INJ 0.4 MG/5 ML DISP.SYRIN IV ONE; +SUCCINYLCHOLINE CHLORIDE INJ 200 MG/10 ML VIAL ONE
[2020-08-30 11:42] LABS: ABSOLUTE LYMPHOCYTES (AUTO) 0.4 10^3/uL (0.5-4.7); ABSOLUTE MONOCYTES (AUTO) 0.5 10^3/uL (0.1-1.4); BASOPHILS % (AUTO) 0.2 % (0-2); HEMATOCRIT 36.2 % (37.9-51.0); LYMPHOCYTES % (AUTO) 7.4 % (13-45); MEAN CORPUSCULAR HEMOGLOBIN 31.7 pg (27.0-33.4); MEAN CORPUSCULAR HGB CONC 35.9 g/dL (32.0-36.0); MEAN CORPUSCULAR VOLUME 88 fl (80-97); MONOCYTES % (AUTO) 8.2 % (3-13); PLATELET COUNT 145 10^3/uL (150-450); RED CELL DISTRIBUTION WIDTH 13.6 % (11.5-14.0); SEGMENTED NEUTROPHILS % (AUTO) 84.2 % (42-78); TOTAL CELLS COUNTED % (AUTO) 100 %; WHITE BLOOD COUNT 5.9 10^3/uL (4.0-10.5)
--- NOTE | 2020-08-30 11:58 | RADIOLOGY REPORT (SQ) ---
EXAM DESCRIPTION: CHEST SINGLE VIEW IMAGES COMPLETED DATE/TIME: 08/30/2020 11:39 am REASON FOR STUDY: shortness of breath COMPARISON: 01/16/2020. EXAM PARAMETERS: NUMBER OF VIEWS: One view. TECHNIQUE: Single frontal radiographic view of the chest acquired. RADIATION DOSE: NA LIMITATIONS: None. FINDINGS: LUNGS AND PLEURA: Scattered airspace disease throughout both lungs. MEDIASTINUM AND HILAR STRUCTURES: No masses. Contour normal. HEART AND VASCULAR STRUCTURES: Heart upper limits of normal normal in size. Normal vasculature. BONES: No acute findings. HARDWARE: None in the chest. OTHER: No other significant finding. IMPRESSION: SCATTERED BILATERAL AIRSPACE DISEASE. TECHNICAL DOCUMENTATION: JOB ID: [id number] 2010 [employer]- All Rights Reserved Reading location - IP/workstation name: [email or web address]
[2020-08-30 12:00] LABS: ALBUMIN 3.3 g/dL (3.5-5.0); ALKALINE PHOSPHATASE 48 U/L (38-126); ANION GAP 13 (5-19); ASPARTATE AMINO TRANSFERASE 30 U/L (17-59); BILIRUBIN,DIRECT 0.2 mg/dL (0.0-0.4); BILIRUBIN,TOTAL 0.6 mg/dL (0.2-1.3); BLOOD UREA NITROGEN 14 mg/dL (7-20); CALCIUM 8.1 mg/dL (8.4-10.2); CARBON DIOXIDE 24 mmol/L (22-30); CHLORIDE 100 mmol/L (98-107); GLUCOSE 186 mg/dL (75-110); POTASSIUM 3.7 mmol/L (3.6-5.0); TOTAL PROTEIN 6.1 g/dL (6.3-8.2)
[2020-08-30 12:25] LABS: TROPONIN I 0.013 ng/mL
[2020-08-30 12:32] LABS: ARTERIAL BLOOD BASE EXCESS 2.7 mmol/L; ARTERIAL BLOOD FIO2 15L; ARTERIAL BLOOD H2CO3 1.29 mmol/L (1.05-1.35); ARTERIAL BLOOD HCO3 27.5 mmol/L (20-24); ARTERIAL BLOOD O2 SATURATION 91.2 % (94-98); ARTERIAL BLOOD PH 7.42 (7.35-7.45); ARTERIAL BLOOD PO2 59.4 mmHg (80-100); ARTERIAL BLOOD TOTAL CO2 28.8 mmol/L (23-27)
--- NOTE | 2020-08-30 13:02 | EKG REPORT ---
SEVERITY:- ABNORMAL ECG - SINUS TACHYCARDIA NONSPECIFIC T ABNORMALITIES, LATERAL LEADS : Confirmed by: Aris Fry MD 30-Aug-2020 13:01:50
[2020-08-30] MEDS ORDERED: CEFTRIAXONE 2 GM/D5W RTU 2 GM/50 ML RTUPB IV ONE (13:50)
[2020-08-30] MEDS ORDERED: AZITHROMYCIN INJ 500 MG VIAL IV ONE (13:50)
[2020-08-30 13:53] LABS: APPEARANCE,URINE CLEAR; BILIRUBIN,URINE NEGATIVE (NEGATIVE); COLOR,URINE YELLOW; GLUCOSE, URINE 50 mg/dL (NEGATIVE); KETONES,URINE TRACE mg/dL (NEGATIVE); LEUKOCYTE ESTERASE,URINE NEGATIVE (NEGATIVE); NITRITE,URINE NEGATIVE (NEGATIVE); PROTEIN,URINE 100 mg/dL (NEGATIVE); URINE SPECIFIC GRAVITY 1.014; UROBILINOGEN,URINE NEGATIVE mg/dL (<2.0)
[2020-08-30] MEDS ORDERED: NORMAL SALINE 1000 ML 1,000 ML IV ONE ×2 (13:55)
[2020-08-30] MEDS ORDERED: ACETAMINOPHEN 325 MG TABLET PO ONE (13:55)
--- NOTE | 2020-08-30 14:27 | ER Document Report ---
ED General - General Chief Complaint: Shortness Of Breath Stated Complaint: SHORTNESS OF BREATH Time Seen by Provider: 08/30/20 11:43 Primary Care Provider: ROGER AMEZCUA MD [Primary Care Provider] - Follow up as needed Mode of Arrival: Medic Information source: Patient TRAVEL OUTSIDE OF THE [place] IN LAST 30 DAYS: No - HPI Notes: Patient brought in by ambulance secondary to shortness of breath. Patient states for approximately 3 to 4 days she has had increasing shortness of breath that prevents him from being able to walk around the house. States he went to urgent care today urgent care noticed that his saturations were low and called an ambulance. Patient denies any history of congestive heart failure. He stat es he is a former smoker. He states he does use some inhalers at home. He states he has had some mild chest pressure but no other significant pain. This is been relatively constant and is worse with exertion and better with rest. No significant radiation of the symptoms. He has had no known fevers he states. No rashes. He denies any known Covid exposures. - Related Data Allergies/Adverse Reactions: No Known Allergies Allergy (Verified 01/16/20 11:41) Past Medical History - General Information source: Patient - Social History Smoking Status: Former Smoker Frequency of alcohol use: None Drug Abuse: None Family History: DM, Malignancy - Past Medical History Cardiac Medical History: Reports: Hx Hypercholesterolemia, Hx Hypertension Endocrine Medical History: Reports: Hx Diabetes Mellitus Type 2 Renal/ Medical History: Denies: Hx Peritoneal Dialysis Musculoskeletal Medical History: Reports Hx Arthritis - KNEES, SHOULDERS AND BACK Past Surgical History: Reports: Hx Abdominal Surgery - hernia repair, Hx Inguinal Hernia - Bilateral - Immunizations Immunizations up to date: Yes Hx Diphtheria, Pertussis, Tetanus Vaccination: Yes Review of Systems - Review of Systems Constitutional: Chills, Fever Cardiovascular: Orthopnea. denies: Palpitations Respiratory: Cough, Short of breath -: Yes All other systems reviewed and negative Physical Exam - Vital signs Vitals: Temp Resp BP Pulse Ox 102.4 F H 31 H 124/77 82 L 08/30/20 11:13 08/30/20 11:13 08/30/20 11:13 08/30/20 11:13 Interpretation: Tachycardic, Hypoxic, Tachypneic - General General appearance: Alert In distress: Moderate - HEENT Head: Normocephalic, Atraumatic Eyes: Normal Pupils: PERRL - Respiratory Respiratory status: Respiratory distress - Moderate, Tachypnea Chest status: Nontender Breath sounds: Decreased air movement, Rhonchi Chest palpation: Normal - Cardiovascular Rhythm: Tachycardia Heart sounds: Normal auscultation Murmur: No - Abdominal Inspection: Normal Distension: No distension Bowel sounds: Normal Tenderness: Nontender Organomegaly: No organomegaly - Back Back: Normal, Nontender - Extremities General upper extremity: Normal inspection, Nontender, Normal color, Normal ROM, Normal temperature General lower extremity: Nontender, Edema - 2+ bilaterally, Normal color, Normal ROM, Normal temperature. No: Candido's sign - Neurological Neuro grossly intact: Yes Cognition: Normal Orientation: AAOx4 [place] Coma Scale Eye Opening: Spontaneous [place] Coma Scale Verbal: Oriented [place] Coma Scale Motor: Obeys Commands [place] Coma Scale Total: 15 Speech: Normal Motor strength normal: LUE, RUE, LLE, RLE Sensory: Normal - Psychological Associated symptoms: Normal affect, Normal mood - Skin Skin Temperature: Warm Skin Moisture: Dry Skin Color: Normal Course - Re-evaluation Re-evalutation: 08/30/20 14:26 Patient presents with shortness of breath from an urgent care. Patient has obvious bilateral infiltrates on x-ray. His saturations here were low. On 10 L patient sats were 91-92 and he was less tachypneic. He has now been placed on CPAP. Patient also has fever of 102. He has no known Covid exposures but he will be tested. He has been treated with antibiotics for outpatient community- acquired pneumonia. He has not been hypotensive. - Vital Signs Vital signs: Temp Pulse Resp BP Pulse Ox 102.4 F H 30 H 138/79 H 94 08/30/20 11:42 08/30/20 12:01 08/30/20 12:01 08/30/20 12:01 - Laboratory Result Diagrams: 08/30/20 11:17 08/30/20 11:17 Laboratory results interpreted by me: 08/30/20 08/30/20 08/30/20 11:17 11:17 12:13 RBC 4.10 L Hgb 13.0 L Hct 36.2 L Plt Count 145 L Lymph % (Auto) 7.4 L Absolute Lymphs (auto) 0.4 L Seg Neutrophils % 84.2 H ABG pO2 59.4 L ABG HCO3 27.5 H ABG Total CO2 28.8 H ABG O2 Saturation 91.2 L Sodium 136.5 L Glucose 186 H Calcium 8.1 L Total Protein 6.1 L Albumin 3.3 L Urine Protein Urine Glucose (UA) Urine Ketones Urine Blood 08/30/20 13:13 RBC Hgb Hct Plt Count Lymph % (Auto) Absolute Lymphs (auto) Seg Neutrophils % ABG pO2 ABG HCO3 ABG Total CO2 ABG O2 Saturation Sodium Glucose Calcium Total Protein Albumin Urine Protein 100 H Urine Glucose (UA) 50 H Urine Ketones TRACE H Urine Blood MODERATE H - Diagnostic Test Radiology reviewed: Image reviewed, Reports reviewed - EKG Interpretation by Me EKG shows normal: Sinus rhythm Rate: Tachycardia - 118 Rhythm: NSR [place]/QRS: No: Right axis deviation, Left axis deviation Critical Care Note - Critical Care Note Total time excluding time spent on procedures (mins): 55 Comments: 55 minutes of critical care time were spent on this patient with febrile, hypoxic, tachycardic bilateral pneumonia. This time I spent doing multiple reassessments. I spent talking with multiple consultants. It is spent reviewing imaging and laboratory values. Discharge - Discharge Clinical Impression: Person under investigation for COVID-19 Pneumonia Qualifiers: Pneumonia type: due to unspecified organism Laterality: bilateral Lung location: lower lobe of lung Qualified Code(s): J18.9 - Pneumonia, unspecified organism Fever Qualifiers: Fever type: unspecified Qualified Code(s): R50.9 - Fever, unspecified Condition: Serious Disposition: ADMITTED INPATIENT Admitting Provider: Chrissy (Hospitalist) Unit Admitted: I[facility]U Referrals: ROGER AMEZCUA MD [Primary Care Provider] - Follow up as needed
[2020-08-30] MEDS ORDERED: ONDANSETRON 4 MG TAB.RAPDIS PO PRN (16:27)
[2020-08-30] MEDS ORDERED: ALBUTEROL SULFATE HFA (90 MCG/PUFF) 8 GM MDI IH PRN (16:41)
[2020-08-30] MEDS ORDERED: HYDROCODONE/ACETAMINOPHEN 5-325 MG TABLET PO PRN (16:41)
--- NOTE | 2020-08-30 17:06 | PDOC H&P ---
History of Present Illness Admission Date/PCP: 08/30/20 15:02 ROGER AMEZCUA MD Patient complains of: SOB History of Present Illness: REYES MADISON is a 80 year old male, hx od Type 2 DM, HTN, HLD, former smoker who was brought to the ED today due to dyspnea. 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 He denied any cough,chest pain, palpitations, leg swelling, orthopnea. 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 No known COVID exposure. In the ED, BP 130/80s, HR 99, O2 sat 82% on RA improved to 95% on CPAP. CXR showed bilateral airspace disease. He was started on abx for presumed bacterial pneumonia. COVID test pending. Past Medical History Cardiac Medical History: Reports: Hyperlipidema, Hypertension Pulmonary Medical History: Reports: None EENT Medical History: Reports: None Neurological Medical History: Reports: None Endocrine Medical History: Reports: Diabetes Mellitus Type 2 Renal/ Medical History: Reports: None Malignancy Medical History: Reports: None GI Medical History: Reports: None Musculoskeltal Medical History: Reports: Arthritis - KNEES, SHOULDERS AND BACK Psychiatric Medical History: Reports: None Traumatic Medical History: Reports: None Hematology: Denies: Anemia Past Surgical History Past Surgical History: Reports: None Social History Information Source: Patient Lives with: Family Smoking Status: Former Smoker Cigarettes Packs Per Day: 1 Electronic Cigarette use?: No Drugs: None Family History Family History: DM, Malignancy Parental Family History Reviewed: Yes Children Family History Reviewed: Yes Sibling(s) Family History Reviewed.: Yes Medication/Allergy Home Medications: Aspirin [Ecotrin] 81 mg PO DAILY 12/08/13 Esomeprazole Magnesium [Nexium] 20 mg PO BID 12/08/13 Furosemide [Lasix] 20 mg PO DAILY 12/08/13 Metformin HCl [Glucophage] 500 mg PO BID 12/08/13 Potassium Chloride 10 meq PO PRN PRN 12/08/13 Simvastatin [Zocor 20 mg Tablet] 20 mg PO QHS 12/08/13 Telmisartan [Micardis 20 mg Tablet] 20 mg PO DAILY 12/08/13 Oxycodone HCl/Acetaminophen [Percocet 5-325 mg Tablet] 1 tab PO ASDIR PRN 12/28/13 Cyclobenzaprine HCl [Flexeril 10 Mg Tablet] 10 mg PO TIDP PRN #20 tablet 06/08/16 Hydrocodone/Acetaminophen [[place] 5-325 Tablet] 1 each PO Q6 #15 tablet 06/08/16 Oxycodone HCl/Acetaminophen [Percocet 5-325 mg Tablet] 1 - 2 tab PO ASDIR PRN #20 tablet 06/10/16 Albuterol Sulfate [Proair HFA Inhalation Aerosol 8.5 gm MDI] 2 puff IH Q4H PRN #1 mdi 11/07/17 Prednisone [Deltasone 20 mg Tablet] 3 tab PO DAILY 5 Days tablet 11/07/17 Benzonatate [Tessalon Perles 100 mg Capsule] 100 mg PO Q8HP PRN #20 capsule 01/16/20 Loratadine [Allergy Relief] 10 mg PO DAILY #20 tablet 01/16/20 Allergies/Adverse Reactions: No Known Allergies Allergy (Verified 01/16/20 11:41) Review of Systems Constitutional: PRESENT: fatigue, fever(s) Eyes: PRESENT: as per HPI Ears: PRESENT: as per HPI Nose, Mouth, and Throat: PRESENT: as per HPI Breasts: PRESENT: as per HPI Cardiovascular: PRESENT: as per HPI, dyspnea on exertion Respiratory: PRESENT: dyspnea Gastrointestinal: ABSENT: abdominal pain, diarrhea, dysphagia, heartburn Genitourinary: PRESENT: as per HPI. ABSENT: difficulty urinating, dysuria Integumentary: PRESENT: as per HPI Neurological: PRESENT: as per HPI Physical Exam Vital Signs: Temp Pulse Resp BP Pulse Ox 98.8 F 23 H 128/81 H 96 08/30/20 16:35 08/30/20 16:01 08/30/20 16:01 08/30/20 16:01 Intake & Output 08/29/20 08/30/20 08/31/20 06:59 06:59 06:59 Intake Total 2049 Balance 2049 Weight 108.862 kg General appearance: PRESENT: cooperative, mild distress Head exam: PRESENT: atraumatic, normocephalic Eye exam: PRESENT: EOMI, PERRLA Mouth exam: PRESENT: moist Neck exam: PRESENT: full ROM Respiratory exam: PRESENT: crackles, rales, symmetrical, unlabored Cardiovascular exam: PRESENT: RRR, +S1, +S2 Pulses: PRESENT: +2 pedal pulses bilateral GI/Abdominal exam: PRESENT: normal bowel sounds, soft. ABSENT: rebound, tenderness Musculoskeletal exam: PRESENT: full ROM Neurological exam: PRESENT: alert, awake, oriented to place, oriented to time, oriented to situation Psychiatric exam: PRESENT: normal mood Skin exam: PRESENT: normal color Results Laboratory Results: 08/30/20 11:17 08/30/20 11:17 08/30/20 08/30/20 08/30/20 11:17 11:17 12:13 WBC 5.9 RBC 4.10 L Hgb 13.0 L Hct 36.2 L MCV 88 MCH 31.7 MCHC 35.9 RDW 13.6 Plt Count 145 L Seg Neutrophils % 84.2 H Carbonic Acid 1.29 HCO3/H2CO3 Ratio 21:1 ABG pH 7.42 ABG pCO2 43.0 ABG pO2 59.4 L ABG HCO3 27.5 H ABG O2 Saturation 91.2 L ABG Base Excess 2.7 FiO2 15L Sodium 136.5 L Potassium 3.7 Chloride 100 Carbon Dioxide 24 Anion Gap 13 BUN 14 Creatinine 0.69 Est GFR ( Amer) > 60 Glucose 186 H Lactic Acid Calcium 8.1 L Total Bilirubin 0.6 AST 30 Alkaline Phosphatase 48 Total Protein 6.1 L Albumin 3.3 L Urine Color Urine Appearance Urine pH Ur Specific [place] Urine Protein Urine Glucose (UA) Urine Ketones Urine Blood Urine Nitrite Ur Leukocyte Esterase Urine WBC (Auto) Urine RBC (Auto) 08/30/20 08/30/20 13:13 14:50 WBC RBC Hgb Hct MCV MCH MCHC RDW Plt Count Seg Neutrophils % Carbonic Acid HCO3/H2CO3 Ratio ABG pH ABG pCO2 ABG pO2 ABG HCO3 ABG O2 Saturation ABG Base Excess FiO2 Sodium Potassium Chloride Carbon Dioxide Anion Gap BUN Creatinine Est GFR ( Amer) Glucose Lactic Acid 1.7 Calcium Total Bilirubin AST Alkaline Phosphatase Total Protein Albumin Urine Color YELLOW Urine Appearance CLEAR Urine pH 5.0 Ur Specific [place] 1.014 Urine Protein 100 H Urine Glucose (UA) 50 H Urine Ketones TRACE H Urine Blood MODERATE H Urine Nitrite NEGATIVE Ur Leukocyte Esterase NEGATIVE Urine WBC (Auto) 0 Urine RBC (Auto) 1 08/30/20 11:17 Troponin I 0.013 NT-Pro-B Natriuret Pep 78 Impressions: Chest X-Ray 08/30/20 11:08 IMPRESSION: SCATTERED BILATERAL AIRSPACE DISEASE. Assessment and Plan - Diagnosis (1) Acute respiratory failure with hypoxia Is this a current diagnosis for this admission?: Yes Plan: - O2 sat 88% on RA improved on CPAP - CXR bilateral infiltrates - continue O2 support, maintain sats >89% - COVID test pending - CTA chest pending (2) Bilateral pneumonia Qualifiers: Pneumonia type: due to unspecified organism Is this a current diagnosis for this admission?: Yes Plan: - came in due to dyspnea on exertion - CXR showed bilateral pneumonia - BNP normal - Ddx Viral or bacterial pneumonia - COVID test pending - start Ceftri and rocephin - albuterol prn - O2 support as needed (3) Person under investigation for COVID-19 Is this a current diagnosis for this admission?: Yes Plan: - COVID pending - empirically on dexa 6 mg IV daily, zinc, vitamin d, vit c - remdesivir and Conv plasma once confirmed - ordered ferritin, CRP, LDH - continue O2 support - continue isolation (4) HTN (hypertension) Qualifiers: Hypertension type: essential hypertension Qualified Code(s): I10 - Essential (primary) hypertension Is this a current diagnosis for this admission?: Yes Plan: - resumed home meds (5) HLD (hyperlipidemia) Qualifiers: Hyperlipidemia type: unspecified Qualified Code(s): E78.5 - Hyperlipidemia, unspecified Is this a current diagnosis for this admission?: Yes Plan: - resume home meds (6) Morbid obesity with BMI of 40.0-44.9, adult Is this a current diagnosis for this admission?: Yes Plan: - carb controlled diet - lifestyle modification (7) DVT prophylaxis Is this a current diagnosis for this admission?: Yes Plan: D dimer pending started lovenox - Time Time Spent with patient: 35 or more minutes Medications reviewed and adjusted accordingly: Yes Anticipated Discharge Disposition: Home, Self Care Anticipated Discharge Timeframe: to be determined - Inpatient Certification Based on my medical assessment, after consideration of the patient's comorbidities, presenting symptoms, or acuity I expect that the services needed warrant INPATIENT care.: Yes I certify that my determination is in accordance with my understanding of Medicare's requirements for reasonable and necessary INPATIENT services [42 CFR 412.3e].: Yes Medical Necessity: Risk of Complication if Not Cared For in Hospital
[2020-08-30 17:34] LABS: C-REACTIVE PROTEIN 144.8 mg/L (<10.0)
--- NOTE | 2020-08-30 17:42 | RADIOLOGY REPORT (SQ) ---
EXAM DESCRIPTION: CTA CHEST IMAGES COMPLETED DATE/TIME: 08/30/2020 5:08 pm REASON FOR STUDY: SOB COMPARISON: None. TECHNIQUE: CT scan of the chest performed using helical scanning technique with dynamic intravenous contrast injection. Images reviewed with lung, soft tissue and bone windows. Reconstructed coronal and sagittal MPR images reviewed. Additional 3 dimensional post-processing performed to develop Maximal Intensity Projection images (NE P). All images stored on PACS. All CT scanners at this facility use dose modulation, iterative reconstruction, and/or weight based d osing when appropriate to reduce radiation dose to as low as reasonably achievable (ALARA). [facility]: Dose Right [facility]: CareDose [facility]: Dose Right [facility]: Teradose 4D [facility]: Metabiota CONTRAST TYPE AND DOSE: contrast/concentration: Isovue 350.00 mmol/ml; Total Contrast Delivered: 75. 0 ml; Total Saline Delivered: 75.0 ml Contrast bolus optimized for the pulmonary arteries. Not diagnostic for the aorta. RENAL FUNCTION: Creatinine -0.69 RADIATION DOSE: CT Rad equipment meets quality standard of care and radiation dose reduction techniq ues were employed. CTDIvol: 9.9 - 32.3 mGy. DLP: 1121 mGy-cm. . LIMITATIONS: None. FINDINGS: LUNGS AND PLEURA: Fairly extensive multifocal areas of consolidation with air bronchogram s in the periphery of the lungs. A few scattered ground-glass opacities also identified. Considerat ions for these findings include pneumonia, with COVID-19 pneumonia included in the differential. No pneumothorax or pleural effusion. The central airways are clear. AORTA AND GREAT VESSELS: No aneurysm. Contrast bolus not optimized for the aorta. HEART: Cardiomegaly. No pericardial effusion. No significant coronary artery calcifications. PULMONARY ARTERIES: No emboli visualized in the main pulmonary arteries or the segmental branches. HILAR AND MEDIASTINAL STRUCTURES: No identified masses or abnormal nodes. HARDWARE: None in the chest. UPPER ABDOMEN: A hypoattenuated splenic lesion. Calcified splenic granuloma. Calcified granuloma i n the spleen. Limited exam. THYROID AND OTHER SOFT TISSUES: No masses. No adenopathy. BONES: No acute or significant finding. 3D MIPS: Confirm above findings. OTHER: No other significant finding. IMPRESSION: 1. No evidence for acute pulmonary emboli. 2. Fairly extensive areas of consolidation and some scattered ground-glass opacities in the periphery of the lungs. Differential diagnosis includes pneumonia, with COVId-19 pneumonia included in the di fferential. Correlation suggested. 2. A hypoattenuated splenic lesion. Calcified splenic granuloma also noted. Further evaluation wit h ultrasound examination suggested. COMMENT: Quality ID # [id number]: Final reports with documentation of one or more dose reduction techniques (e.g., Automated exposure control, adjustment of the mA and/or kV according to patient size, use of iterative reconstruction technique) TECHNICAL DOCUMENTATION: JOB ID: [id number] 2010 [employer]- All Rights Reserved Reading location - IP/workstation name: [email or web address]
[2020-08-30] MEDS: ENOXAPARIN SODIUM INJ 40 MG/0.4 ML DISP.SYRIN SUBCUT SCH (17:48)
[2020-08-30] MEDS: DEXAMETHASONE SOD PHOS INJ 10 MG/1 ML VIAL IV SCH (17:48)
[2020-08-30] MEDS ORDERED: GLUCAGON,HUMAN RECOMB 1 MG INJ IM PRN (18:00)
[2020-08-30] MEDS ORDERED: DEXTROSE 40% GEL 15 GM TUBE X 2 PO PRN (18:00)
[2020-08-30] MEDS ORDERED: DEXTROSE 50%-WATER SYRINGE 12.5 GM/25 ML DOSE IV PRN (18:00)
[2020-08-30] MEDS ORDERED: DEXTROSE 50%-WATER SYRINGE 25 GM/50 ML DOSE IV PRN (18:00)
[2020-08-30] MEDS ORDERED: DEXTROSE 40% GEL 15 GM TUBE PO PRN (18:00)
[2020-08-30] MEDS: ASCORBIC ACID 500 MG TABLET PO SCH (18:13)
[2020-08-30] MEDS: INSULIN LISPRO 100 UNIT/ML 3 ML VIAL SUBCUT SCH (22:39)
[2020-08-30] MEDS: SIMVASTATIN 10 MG TABLET PO SCH (22:40)
[2020-08-31 05:43] LABS: ABSOLUTE LYMPHOCYTES (AUTO) 0.4 10^3/uL (0.5-4.7); ABSOLUTE MONOCYTES (AUTO) 0.4 10^3/uL (0.1-1.4); ABSOLUTE NEUT (AUTO) 5.8 10^3/uL (1.7-8.2); BASOPHILS % (AUTO) 0.2 % (0-2); HEMATOCRIT 36.2 % (37.9-51.0); HEMOGLOBIN 12.5 g/dL (13.5-17.0); LYMPHOCYTES % (AUTO) 5.4 % (13-45); MEAN CORPUSCULAR HEMOGLOBIN 30.1 pg (27.0-33.4); MEAN CORPUSCULAR HGB CONC 34.5 g/dL (32.0-36.0); MEAN CORPUSCULAR VOLUME 87 fl (80-97); MONOCYTES % (AUTO) 6.2 % (3-13); PLATELET COUNT 151 10^3/uL (150-450); RED BLOOD COUNT 4.15 10^6/uL (4.35-5.55); SEGMENTED NEUTROPHILS % (AUTO) 88.2 % (42-78); TOTAL CELLS COUNTED % (AUTO) 100 %; WHITE BLOOD COUNT 6.5 10^3/uL (4.0-10.5)
[2020-08-31 06:01] LABS: ALBUMIN 3.4 g/dL (3.5-5.0); ALKALINE PHOSPHATASE 50 U/L (38-126); ANION GAP 10 (5-19); ASPARTATE AMINO TRANSFERASE 32 U/L (17-59); BILIRUBIN,DIRECT 0.2 mg/dL (0.0-0.4); BILIRUBIN,TOTAL 0.6 mg/dL (0.2-1.3); BLOOD UREA NITROGEN 16 mg/dL (7-20); CALCIUM 8.5 mg/dL (8.4-10.2); CARBON DIOXIDE 28 mmol/L (22-30); CHLORIDE 102 mmol/L (98-107); GLUCOSE 221 mg/dL (75-110); POTASSIUM 3.9 mmol/L (3.6-5.0); TOTAL PROTEIN 6.3 g/dL (6.3-8.2)
[2020-08-31 06:35] LABS: ARTERIAL BLOOD BASE EXCESS 5.1 mmol/L; ARTERIAL BLOOD FIO2 80%; ARTERIAL BLOOD H2CO3 1.44 mmol/L (1.05-1.35); ARTERIAL BLOOD HCO3 30.5 mmol/L (20-24); ARTERIAL BLOOD O2 SATURATION 93.2 % (94-98); ARTERIAL BLOOD PCO2 47.8 mmHg (35-45); ARTERIAL BLOOD PH 7.42 (7.35-7.45); ARTERIAL BLOOD PO2 65.8 mmHg (80-100)
[2020-08-31] MEDS ORDERED: NORMAL SALINE 250 ML IV PRN (07:31)
[2020-08-31] MEDS: FUROSEMIDE INJ/PF 20 MG/2 ML SDV IV SCH ×2 (08:20→11:31)
[2020-08-31] MEDS: INSULIN LISPRO 100 UNIT/ML 3 ML VIAL SUBCUT SCH ×4 (08:21→22:23)
[2020-08-31] MEDS ORDERED: REMDESIVIR (EUA) 200 MG in NORMAL SALINE 250 ML IV ONE (09:30)
[2020-08-31] MEDS ORDERED: (PENDING PHARMACY ID) (Telmisartan [Micardis 20 Mg Tablet] 20 MG) PO SCH (10:00)
[2020-08-31] MEDS: ENOXAPARIN SODIUM INJ 40 MG/0.4 ML DISP.SYRIN SUBCUT SCH (10:08)
[2020-08-31] MEDS: AZITHROMYCIN 250 MG TABLET PO SCH (10:09)
[2020-08-31] MEDS: CHOLECALCIFEROL (D3) 400 UNIT TABLET PO SCH (10:09)
[2020-08-31] MEDS: CEFTRIAXONE SODIUM 1,500 MG in DEXTROSE 5%-WATER 100 ML IV SCH (10:09)
[2020-08-31] MEDS: DEXAMETHASONE SOD PHOS INJ 10 MG/1 ML VIAL IV SCH (10:09)
[2020-08-31] MEDS: ASCORBIC ACID 500 MG TABLET PO SCH ×2 (10:09→17:21)
[2020-08-31] MEDS: ASPIRIN 81 MG TABLET, ENT COATED PO SCH (10:09)
[2020-08-31] MEDS: ZINC SULFATE 220 MG CAPSULE PO SCH (10:09)
[2020-08-31] MEDS: PANTOPRAZOLE SODIUM 40 MG TABLET.DR PO SCH (14:41)
--- NOTE | 2020-08-31 15:20 | PDOC PROGRESS REPORT ---
Subjective Progress Note for:: 08/31/20 Subjective:: REYES MADISON is a 80 year old male, hx od Type 2 DM, HTN, HLD, former smoker who was brought to the ED today due to dyspnea. Patient started to experience dyspnea on exertion 1 day [employer]. He denied any cough,chest pain, palpitations, leg swelling, orthopnea. He developed fever a few hours [employer]. No known COVID exposure. In the ED, BP 130/80s, HR 99, O2 sat 82% on RA improved to 95% on CPAP. CXR showed bilateral airspace disease. He was started on abx for presumed bacterial pneumonia. COVID test pending. D2 hospital stay. He was seen and examined at bedside. He remained on CPAP for most of the night as well as this morning and I was told by the nurse that he gets really short of breath with ambulation. He was able to eat while he was on nasal cannula with no desaturation. However he does feel short of breath without CPAP. He has very minimal cough, he denied chest pain. He is currently on CPAP of 8, 80% FiO2 saturating 91%. I was able to talk to his Mari over the phone and gave her an update on how the patient is doing. Covid test still pending but given his significant need for oxygen and characteristic chest x-ray findings I have decided to go ahead and treat him with remdesivir and convalescent plasma pending Covid test. Reason For Visit: BILATERAL PNEUMONIA,SUSPECTED COVID Physical Exam Vital Signs: Temp Pulse Resp BP Pulse Ox 98.1 F 101 H 23 H 141/75 H 87 L 08/31/20 10:53 08/31/20 14:00 08/31/20 10:53 08/31/20 10:53 08/31/20 10:53 Intake & Output 08/30/20 08/31/20 09/01/20 06:59 06:59 06:59 Intake Total 2150 Output Total 200 225 Balance 1950 -225 Weight 106.5 kg General appearance: PRESENT: morbidly obese, severe distress Head exam: PRESENT: atraumatic, normocephalic Eye exam: PRESENT: EOMI, PERRLA Mouth exam: PRESENT: moist Neck exam: PRESENT: full ROM Respiratory exam: PRESENT: crackles, rhonchi, symmetrical, tachypnea Cardiovascular exam: PRESENT: RRR, +S1, +S2 Pulses: PRESENT: +2 pedal pulses bilateral GI/Abdominal exam: PRESENT: normal bowel sounds, soft. ABSENT: rebound, tenderness Extremities exam: PRESENT: full ROM Musculoskeletal exam: PRESENT: full ROM Neurological exam: PRESENT: alert, awake, oriented to person, oriented to place, oriented to time, oriented to situation Psychiatric exam: PRESENT: normal mood Skin exam: PRESENT: normal color Results Laboratory Results: 08/31/20 05:06 08/31/20 05:06 08/30/20 08/30/20 08/31/20 11:17 14:50 05:06 WBC 6.5 RBC 4.15 L Hgb 12.5 L Hct 36.2 L MCV 87 MCH 30.1 MCHC 34.5 RDW 14.0 Plt Count 151 Seg Neutrophils % 88.2 H Carbonic Acid HCO3/H2CO3 Ratio ABG pH ABG pCO2 ABG pO2 ABG HCO3 ABG O2 Saturation ABG Base Excess FiO2 Sodium Potassium Chloride Carbon Dioxide Anion Gap BUN Creatinine Est GFR ( Amer) Glucose Lactic Acid 1.7 Calcium Ferritin 189.00 Total Bilirubin AST Alkaline Phosphatase C-Reactive Protein 144.8 H Total Protein Albumin Blood Type 08/31/20 08/31/20 08/31/20 05:06 06:05 10:35 WBC RBC Hgb Hct MCV MCH MCHC RDW Plt Count Seg Neutrophils % Carbonic Acid 1.44 H HCO3/H2CO3 Ratio 21:1 ABG pH 7.42 ABG pCO2 47.8 H ABG pO2 65.8 L ABG HCO3 30.5 H ABG O2 Saturation 93.2 L ABG Base Excess 5.1 FiO2 80% Sodium 140.4 Potassium 3.9 Chloride 102 Carbon Dioxide 28 Anion Gap 10 BUN 16 Creatinine 0.61 Est GFR ( Amer) > 60 Glucose 221 H Lactic Acid Calcium 8.5 Ferritin Total Bilirubin 0.6 AST 32 Alkaline Phosphatase 50 C-Reactive Protein Total Protein 6.3 Albumin 3.4 L Blood Type A POSITIVE 08/30/20 11:17 Troponin I 0.013 NT-Pro-B Natriuret Pep 78 Impressions: Chest/Abdomen CTA 08/30/20 00:00 IMPRESSION: 1. No evidence for acute pulmonary emboli. 2. Fairly extensive areas of consolidation and some scattered ground-glass opacities in the periphery of the lungs. Differential diagnosis includes pneumonia, with COVId-19 pneumonia included in the differential. Correlation suggested. 2. A hypoattenuated splenic lesion. Calcified splenic granuloma also noted. Further evaluation with ultrasound examination suggested. Chest X-Ray 08/30/20 11:08 IMPRESSION: SCATTERED BILATERAL AIRSPACE DISEASE. Assessment and Plan - Diagnosis (1) Acute respiratory failure with hypoxia Is this a current diagnosis for this admission?: Yes Plan: - O2 sat 88% on RA improved on CPAP - CXR bilateral infiltrates - continue O2 support, maintain sats >89% - COVID test pending - CTA chest no PE, significant ground glass opacities in lung periphery (2) Bilateral pneumonia Qualifiers: Pneumonia type: due to unspecified organism Is this a current diagnosis for this admission?: Yes Plan: - came in due to dyspnea on exertion - CXR showed bilateral pneumonia - BNP normal - Ddx Viral or bacterial pneumonia - COVID test pending - Ceftri and rocephin D2 -empirically started on Remdesivir and Conv plasma - albuterol prn - O2 support as needed (3) Person under investigation for COVID-19 Is this a current diagnosis for this admission?: Yes Plan: - COVID pending - CRP, ferritin, LDH elevated - empirically on dexa 6 mg IV daily D2 - empirically started on convalescent plasma and remdesivir - zinc, vitamin d, vit c - continue O2 support - continue isolation (4) HTN (hypertension) Qualifiers: Hypertension type: essential hypertension Qualified Code(s): I10 - Essent ial (primary) hypertension Is this a current diagnosis for this admission?: Yes Plan: - resumed home meds (5) HLD (hyperlipidemia) Qualifiers: Hyperlipidemia type: unspecified Qualified Code(s): E78.5 - Hyperlipidemia, unspecified Is this a current diagnosis for this admission?: Yes Plan: - resume home meds (6) Morbid obesity with BMI of 40.0-44.9, adult Is this a current diagnosis for this admission?: Yes Plan: - carb controlled diet - lifestyle modification (7) DVT prophylaxis Is this a current diagnosis for this admission?: Yes Plan: D dimer 1.0 started lovenox - Time Time Spent with patient: 35 or more minutes Medications reviewed and adjusted accordingly: Yes Anticipated Discharge Disposition: Home with Home Health Anticipated Discharge Timeframe: to be determined
[2020-08-31] MEDS ORDERED: METOPROLOL TARTRATE 50 MG TABLET PO ONE (19:30)
--- NOTE | 2020-08-31 19:59 | ADVANCED CARE ---
- Diagnosis (1) Acute respiratory failure with hypoxia Diagnosis Current: Yes (2) Bilateral pneumonia Diagnosis Current: Yes (3) Person under investigation for COVID-19 Diagnosis Current: Yes (4) HTN (hypertension) Diagnosis Current: Yes (5) HLD (hyperlipidemia) Diagnosis Current: Yes (6) Morbid obesity with BMI of 40.0-44.9, adult Diagnosis Current: Yes (7) DVT prophylaxis Diagnosis Current: Yes Attendance: patient and attending Resuscitation Status: Full Code Discussion: The patient wishes to remain full code and is okay for intubation as well for acute respiratory failure. He named his Ofelia Casey as his surrogate decision maker. He is aware of the poor prognosis with regards to his possible Covid pneumonia. Care Planning Goals: CODE STATUS confirmed full code also okay for intubation in case of respiratory failure Document(s) Completed: none Time Spent: >16 min <30 min
[2020-08-31] MEDS: SIMVASTATIN 10 MG TABLET PO SCH (22:23)
[2020-09-01] MEDS: MELATONIN 5 MG TABLET PO ONE ×2 (01:49→02:00)
[2020-09-01] MEDS: ACETAMINOPHEN 325 MG TABLET PO PRN ×2 (04:24→16:24)
--- NOTE | 2020-09-01 07:05 | EKG REPORT ---
SEVERITY:- BORDERLINE ECG - SINUS TACHYCARDIA BORDERLINE T WAVE ABNORMALITIES : Confirmed by: Aris Fry MD 01-Sep-2020 07:04:25
[2020-09-01 08:35] LABS: HEMOGLOBIN 13.6 g/dL (13.5-17.0); MEAN CORPUSCULAR HGB CONC 33.9 g/dL (32.0-36.0); MEAN CORPUSCULAR VOLUME 89 fl (80-97); PLATELET COUNT 179 10^3/uL (150-450); RED BLOOD COUNT 4.52 10^6/uL (4.35-5.55)
[2020-09-01] MEDS ORDERED: FUROSEMIDE INJ/PF 40 MG/4 ML SDV IV ONE (08:45)
[2020-09-01] MEDS ORDERED: REMDESIVIR (EUA) 200 MG in NORMAL SALINE 250 ML IV PRN (08:50)
[2020-09-01 08:57] LABS: ALBUMIN 3.6 g/dL (3.5-5.0); ALKALINE PHOSPHATASE 64 U/L (38-126); ANION GAP 10 (5-19); ASPARTATE AMINO TRANSFERASE 39 U/L (17-59); BILIRUBIN,DIRECT 0.3 mg/dL (0.0-0.4); BILIRUBIN,TOTAL 0.7 mg/dL (0.2-1.3); BLOOD UREA NITROGEN 22 mg/dL (7-20); CALCIUM 8.9 mg/dL (8.4-10.2); CARBON DIOXIDE 31 mmol/L (22-30); CHLORIDE 102 mmol/L (98-107); GLUCOSE 179 mg/dL (75-110); POTASSIUM 3.8 mmol/L (3.6-5.0); TOTAL PROTEIN 6.6 g/dL (6.3-8.2)
[2020-09-01 08:59] LABS: C-REACTIVE PROTEIN 57.6 mg/L (<10.0)
[2020-09-01 09:07] LABS: ABSOLUTE LYMPHOCYTES# (MANUAL) 0.7 10^3/uL (0.5-4.7); ABSOLUTE MONOCYTES # (MANUAL) 0.2 10^3/uL (0.1-1.4); BASOPHILS % (MANUAL) 0 % (0-2); EOSINOPHILS % (MANUAL) 0 % (0-6); LYMPHOCYTES % (MANUAL) 7 % (13-45); MONOCYTES % (MANUAL) 2 % (3-13); SEGMENTED NEUTROPHILS % (MAN) 90 % (42-78); TOTAL CELLS COUNTED 100
[2020-09-01 09:09] LABS: ANISOCYTOSIS SLIGHT; BURR CELLS SLIGHT; OVALOCYTES 1+; PLATELET COMMENT ADEQUATE; POIKILOCYTOSIS SLIGHT; POLYCHROMASIA SLIGHT
[2020-09-01] MEDS: IPRATROPIUM/ALBUTEROL 0.5-2.5 MG/3 ML AMPUL NEB PRN (09:42)
[2020-09-01 09:49] LABS: ARTERIAL BLOOD BASE EXCESS 5.2 mmol/L; ARTERIAL BLOOD H2CO3 1.38 mmol/L (1.05-1.35); ARTERIAL BLOOD HCO3 30.2 mmol/L (20-24); ARTERIAL BLOOD O2 SATURATION 89.9 % (94-98); ARTERIAL BLOOD PCO2 45.8 mmHg (35-45); ARTERIAL BLOOD PH 7.44 (7.35-7.45); ARTERIAL BLOOD PO2 55.9 mmHg (80-100); ARTERIAL BLOOD TOTAL CO2 31.6 mmol/L (23-27)
--- NOTE | 2020-09-01 09:54 | RADIOLOGY REPORT (SQ) ---
EXAM DESCRIPTION: CHEST SINGLE VIEW IMAGES COMPLETED DATE/TIME: 09/01/2020 8:49 am REASON FOR STUDY: Bilateral pneumonia COMPARISON: 08/30/2020 NUMBER OF VIEWS: One view. TECHNIQUE: Single frontal radiographic image of the chest acquired. LIMITATIONS: None. FINDINGS: LUNGS AND PLEURA: Bilateral airspace disease with increasing opacity in the right lung com pared to yesterday. MEDIASTINUM AND HEART: Stable heart size and mediastinal structures. BONY STRUCTURES: No acute findings. HARDWARE: None. OTHER: No other significant finding. IMPRESSION: Rehydration versus progressing pneumonia. TECHNICAL DOCUMENTATION: JOB ID: [id number] Reading location - IP/workstation name: [email or web address]
[2020-09-01 09:57] LABS: ARTERIAL BLOOD FIO2 90%
[2020-09-01] MEDS ORDERED: REMDESIVIR (EUA) 100 MG in NORMAL SALINE 250 ML IV SCH (10:00)
[2020-09-01] MEDS: ASCORBIC ACID 500 MG TABLET PO SCH ×2 (10:56→17:00)
[2020-09-01] MEDS: ASPIRIN 81 MG TABLET, ENT COATED PO SCH (10:56)
[2020-09-01] MEDS: PANTOPRAZOLE SODIUM 40 MG TABLET.DR PO SCH (10:56)
[2020-09-01] MEDS: ZINC SULFATE 220 MG CAPSULE PO SCH (10:56)
[2020-09-01] MEDS: AZITHROMYCIN 250 MG TABLET PO SCH (10:56)
[2020-09-01] MEDS: INSULIN LISPRO 100 UNIT/ML 3 ML VIAL SUBCUT SCH ×4 (10:56→22:43)
[2020-09-01] MEDS: CHOLECALCIFEROL (D3) 400 UNIT TABLET PO SCH (10:56)
[2020-09-01] MEDS: DEXAMETHASONE SOD PHOS INJ 10 MG/1 ML VIAL IV SCH (11:00)
[2020-09-01] MEDS: LOSARTAN POTASSIUM 25 MG TABLET PO SCH (11:01)
[2020-09-01] MEDS: ENOXAPARIN SODIUM INJ 40 MG/0.4 ML DISP.SYRIN SUBCUT SCH (11:01)
[2020-09-01] MEDS: CEFTRIAXONE SODIUM 1,500 MG in DEXTROSE 5%-WATER 100 ML IV SCH (11:23)
[2020-09-01] MEDS ORDERED: METOPROLOL TARTRATE 50 MG TABLET PO ONE (12:00)
[2020-09-01] MEDS: FUROSEMIDE INJ/PF 20 MG/2 ML SDV IV SCH (12:15)
--- NOTE | 2020-09-01 15:49 | PDOC PROGRESS REPORT ---
Subjective Progress Note for:: 09/01/20 Subjective:: REYES MADISON is a 80 year old male, hx od Type 2 DM, HTN, HLD, former smoker who was brought to the ED today due to dyspnea. Patient started to experience dyspnea on exertion 1 day [employer]. He denied any cough,chest pain, palpitations, leg swelling, orthopnea. He developed fever a few hours [employer]. No known COVID exposure. In the ED, BP 130/80s, HR 99, O2 sat 82% on RA improved to 95% on CPAP. CXR showed bilateral airspace disease. He was started on abx for presumed bacterial pneumonia. COVID test pending. D2 hospital stay. He was seen and examined at bedside. He remained on CPAP for most of the night as well as this morning and I was told by the nurse that he gets really short of breath with ambulation. He was able to eat while he was on nasal cannula with no desaturation. However he does feel short of breath without CPAP. He has very minimal cough, he denied chest pain. He is currently on CPAP of 8, 80% FiO2 saturating 91%. I was able to talk to his Mari over the phone and gave her an update on how the patient is doing. Covid test still pending but given his significant need for oxygen and characteristic chest x-ray findings I have decided to go ahead and treat him with remdesivir and convalescent plasma pending Covid test. D3 Hospital stay 09/01/20. He was seen and examined at bedside. He reports that his breathing is really not getting better. He tried using high flow nasal cannula but he desaturates on it that is why he has to go back to CPAP 90% FiO2. Repeat chest x-ray showed progression of pneumonia. Blood gas showed PO2 55.9, pH 7.44, PCO2 45.8. He is on day 2 of remdesivir, he also agreed to receive the convalescent plasma. I spoke to him about high possibility that he might need intubation with mechanical ventilation and he is agreeable to this if he needs it. He is aware of the poor prognosis. I was also able to speak to his Mari over the phone and updated her of the patient's condition and she is also aware of the decline in his lung function and the possibility that he might end up on a mechanical ventilator. Reason For Visit: BILATERAL PNEUMONIA,SUSPECTED COVID Physical Exam Vital Signs: Temp Pulse Resp BP Pulse Ox 99.4 F 112 H 48 H 162/78 H 83 L 09/01/20 11:53 09/01/20 14:00 09/01/20 11:53 09/01/20 11:53 09/01/20 11:53 Intake & Output 08/31/20 09/01/20 09/02/20 06:59 06:59 06:59 Intake Total 2150 350 Output Total 200 575 Balance 1950 -225 Weight 106.5 kg 105.2 kg General appearance: PRESENT: severe distress Head exam: PRESENT: atraumatic, normocephalic Eye exam: PRESENT: EOMI, PERRLA Mouth exam: PRESENT: moist Neck exam: PRESENT: full ROM Respiratory exam: PRESENT: crackles, rales, symmetrical, unlabored Cardiovascular exam: PRESENT: RRR, +S1, +S2 Pulses: PRESENT: +2 pedal pulses bilateral GI/Abdominal exam: PRESENT: normal bowel sounds, soft. ABSENT: rebound, tenderness Extremities exam: PRESENT: full ROM. ABSENT: +2 edema Musculoskeletal exam: PRESENT: full ROM Neurological exam: PRESENT: alert, awake, oriented to person, oriented to place, oriented to time, oriented to situation Psychiatric exam: PRESENT: normal mood Results Laboratory Results: 09/01/20 08:11 09/01/20 08:11 08/31/20 08/31/20 09/01/20 05:06 19:21 08:11 WBC 9.0 RBC 4.52 Hgb 13.6 Hct 40.0 MCV 89 MCH 30.0 MCHC 33.9 RDW 14.0 Plt Count 179 Seg Neutrophils % Not Reportable Carbonic Acid HCO3/H2CO3 Ratio ABG pH ABG pCO2 ABG pO2 ABG HCO3 ABG O2 Saturation ABG Base Excess FiO2 Sodium Potassium Chloride Carbon Dioxide Anion Gap BUN Creatinine Est GFR ( Amer) Glucose Calcium Magnesium 2.3 2.3 Ferritin Total Bilirubin AST Alkaline Phosphatase C-Reactive Protein Total Protein Albumin 09/01/20 09/01/20 09/01/20 08:11 08:11 09:32 WBC RBC Hgb Hct MCV MCH MCHC RDW Plt Count Seg Neutrophils % Carbonic Acid 1.38 H HCO3/H2CO3 Ratio 21:1 ABG pH 7.44 ABG pCO2 45.8 H ABG pO2 55.9 L ABG HCO3 30.2 H ABG O2 Saturation 89.9 L ABG Base Excess 5.2 FiO2 90% Sodium 142.9 Potassium 3.8 Chloride 102 Carbon Dioxide 31 H Anion Gap 10 BUN 22 H Creatinine 0.69 Est GFR ( Amer) > 60 Glucose 179 H Calcium 8.9 Magnesium Ferritin 248.00 Total Bilirubin 0.7 AST 39 Alkaline Phosphatase 64 C-Reactive Protein 57.6 H Total Protein 6.6 Albumin 3.6 08/30/20 08/31/20 08/31/20 11:17 19:21 23:00 Troponin I 0.013 < 0.012 < 0.012 NT-Pro-B Natriuret Pep 78 Impressions: Chest/Abdomen CTA 08/30/20 00:00 IMPRESSION: 1. No evidence for acute pulmonary emboli. 2. Fairly extensive areas of consolidation and some scattered ground-glass opacities in the periphery of the lungs. Differential diagnosis includes pneumonia, with COVId-19 pneumonia included in the differential. Correlation suggested. 2. A hypoattenuated splenic lesion. Calcified splenic granuloma also noted. Further evaluation with ultrasound examination suggested. Chest X-Ray 09/01/20 00:00 IMPRESSION: Rehydration versus progressing pneumonia. Assessment and Plan - Diagnosis (1) Acute respiratory failure with hypoxia Is this a current diagnosis for this admission?: Yes Plan: - worsening hypoxia now on 100% FIO2 on CPAP saturating 91% - COVID 19 POSITIVE - repeat CXR 09/01/20 showed worsening infiltrates - ABG Ph 7.44, PaO2 55.9, PCO2 45.8 - currently on D2 of Remdesivir - received convalescent plasma - on BIPAP for O2 support target O2 sat >90% He might need intubation and mechanical ventilation soon. - Prone positioning ordered (2) Pneumonia due to COVID-19 virus Is this a current diagnosis for this admission?: Yes Plan: COVID positive - repeat CXR showed Pneumonia progression - BNP normal - Ceftri and rocephin D3 - D2 remdesivir - Convalescent plasma ordered - proning ordered - duoneb PRN - 1 dose of lasix given - on bipap 19/06, FIO2 100% - poor prognosis discussed with patient and his . Patient is OK for intubation in case of respiratory failure - Dr. Taylor from ICU consulted for possible ICU need (3) HTN (hypertension) Qualifiers: Hypertension type: essential hypertension Qualified Code(s): I10 - Essential (primary) hypertension Is this a current diagnosis for this admission?: Yes Plan: - resumed home meds (4) HLD (hyperlipidemia) Qualifiers: Hyperlipidemia type: unspecified Qualified Code(s): E78.5 - Hyperlipidemia, unspecified Is this a current diagnosis for this admission?: Yes Plan: - resume home meds (5) Morbid obesity with BMI of 40.0-44.9, adult Is this a current diagnosis for this admission?: Yes Plan: - carb controlled diet - historically confers a poor prognosis in terms of COVID outcomes - lifestyle modification (6) DVT prophylaxis Is this a current diagnosis for this admission?: Yes Plan: D dimer 1.0 started lovenox (7) Tachycardia Is this a current diagnosis for this admission?: Yes Plan: - HR 144 sinus tachy. This is likely from hypoxia - also had 7 beats of Vtach - started on metoprolol - Time Time Spent with patient: 35 or more minutes Anticipated Discharge Disposition: Home, Self Care Anticipated Discharge Timeframe: to be determined
--- NOTE | 2020-09-01 17:23 | PDOC CRITICAL CARE PROG REPORT ---
General Date:: 09/01/20 Hospital Day:: 2 Resuscitation Status: Full Code Events in the past 12 to 24 Hours:: Covid positive, needs bipap support. Review of systems relevant to events:: Pulmonary Reason for ICU Addmission:: Evaluation - Medications: Medications reviewed and adjusted accordingly: Yes Vasopressors:: None Sedation:: None Physical Exam Vital Signs: Temp Pulse Resp BP Pulse Ox 100.4 F 117 H 40 H 153/79 H 91 L 09/01/20 16:52 09/01/20 16:52 09/01/20 16:52 09/01/20 16:52 09/01/20 16:52 Intake & Output 08/31/20 09/01/20 09/02/20 06:59 06:59 06:59 Intake Total 2150 350 220 Output Total 200 575 Balance 1950 -225 220 Weight 106.5 kg 105.2 kg Weight/Height Weight 105.2 kg Height 5 ft 4 in General appearance: PRESENT: no acute distress, cooperative, morbidly obese Head exam: PRESENT: atraumatic, normocephalic Eye exam: PRESENT: conjunctiva pink, EOMI, PERRLA. ABSENT: scleral icterus Ear exam: PRESENT: normal external ear exam Mouth exam: PRESENT: moist, tongue midline Respiratory exam: PRESENT: clear to auscultation preston, decreased breath sounds. ABSENT: rales, rhonchi, wheezes Cardiovascular exam: PRESENT: RRR. ABSENT: diastolic murmur, rubs, systolic murmur GI/Abdominal exam: PRESENT: normal bowel sounds, soft. ABSENT: distended, guarding, mass, organolmegaly, rebound, tenderness Rectal exam: PRESENT: deferred Extremities exam: PRESENT: full ROM. ABSENT: calf tenderness, clubbing, pedal edema Musculoskeletal exam: PRESENT: normal inspection Neurological exam: PRESENT: alert, awake, oriented to person, oriented to place, oriented to time, oriented to situation, CN II-XII grossly intact Psychiatric exam: PRESENT: appropriate affect, normal mood. ABSENT: homicidal ideation, suicidal ideation Skin exam: PRESENT: dry, intact, warm. ABSENT: cyanosis, rash Tubes/Lines: PRESENT: Other - Bipap Laboratory/Radiographs Laboratory Results: 09/01/20 08:11 09/01/20 08:11 08/31/20 08/31/20 08/31/20 05:06 10:35 19:21 WBC RBC Hgb Hct MCV MCH MCHC RDW Plt Count Seg Neutrophils % Carbonic Acid HCO3/H2CO3 Ratio ABG pH ABG pCO2 ABG pO2 ABG HCO3 ABG O2 Saturation ABG Base Excess FiO2 Sodium Potassium Chloride Carbon Dioxide Anion Gap BUN Creatinine Est GFR ( Amer) Glucose Calcium Magnesium 2.3 2.3 Ferritin Total Bilirubin AST Alkaline Phosphatase C-Reactive Protein Total Protein Albumin Blood Type A POSITIVE 09/01/20 09/01/20 09/01/20 08:11 08:11 08:11 WBC 9.0 RBC 4.52 Hgb 13.6 Hct 40.0 MCV 89 MCH 30.0 MCHC 33.9 RDW 14.0 Plt Count 179 Seg Neutrophils % Not Reportable Carbonic Acid HCO3/H2CO3 Ratio ABG pH ABG pCO2 ABG pO2 ABG HCO3 ABG O2 Saturation ABG Base Excess FiO2 Sodium 142.9 Potassium 3.8 Chloride 102 Carbon Dioxide 31 H Anion Gap 10 BUN 22 H Creatinine 0.69 Est GFR ( Amer) > 60 Glucose 179 H Calcium 8.9 Magnesium Ferritin 248.00 Total Bilirubin 0.7 AST 39 Alkaline Phosphatase 64 C-Reactive Protein 57.6 H Total Protein 6.6 Albumin 3.6 Blood Type 09/01/20 09:32 WBC RBC Hgb Hct MCV MCH MCHC RDW Plt Count Seg Neutrophils % Carbonic Acid 1.38 H HCO3/H2CO3 Ratio 21:1 ABG pH 7.44 ABG pCO2 45.8 H ABG pO2 55.9 L ABG HCO3 30.2 H ABG O2 Saturation 89.9 L ABG Base Excess 5.2 FiO2 90% Sodium Potassium Chloride Carbon Dioxide Anion Gap BUN Creatinine Est GFR ( Amer) Glucose Calcium Magnesium Ferritin Total Bilirubin AST Alkaline Phosphatase C-Reactive Protein Total Protein Albumin Blood Type 08/30/20 08/31/20 08/31/20 11:17 19:21 23:00 Troponin I 0.013 < 0.012 < 0.012 NT-Pro-B Natriuret Pep 78 Impressions: Chest/Abdomen CTA 08/30/20 00:00 IMPRESSION: 1. No evidence for acute pulmonary emboli. 2. Fairly extensive areas of consolidation and some scattered ground-glass opacities in the periphery of the lungs. Differential diagnosis includes pneumonia, with COVId-19 pneumonia included in the differential. Correlation suggested. 2. A hypoattenuated splenic lesion. Calcified splenic granuloma also noted. Further evaluation with ultrasound examination suggested. Chest X-Ray 09/01/20 00:00 IMPRESSION: Rehydration versus progressing pneumonia. EKG: Sinus tachycardia All labs, radiographs, diagnostic studies and EKGs were personally reviewed: Yes In addition, reports of radiographic and diagnostic studies were read: Yes Assessment and Plan - Diagnosis (1) Pneumonia due to COVID-19 virus Is this a current diagnosis for this admission?: Yes Plan: His CXR is consistent with a bilateral lower field PNA, bilatera. He also has several risk factors for Covid mortality, age 80, obese, -Aust[place], HTN, diabetes. I expect his course to be prolonged. (2) HTN (hypertension) Qualifiers: Hypertension type: essential hypertension Qualified Code(s): I10 - Essential (primary) hypertension Is this a current diagnosis for this admission?: Yes Plan: Currently fairly well controlled, but again a Covid risk factor. (3) Morbid obesity with BMI of 40.0-44.9, adult Is this a current diagnosis for this admission?: Yes Plan: Risk factor which is probably impacting his breathing. (4) Tachycardia Is this a current diagnosis for this admission?: Yes Plan: This is likely a response to his lung disease and is compensatory. Plan Summary: At this point he does not need the ICU nor an escalation of care. However given his age and other risk factors I expect his corse to be prolonged and he certainly may need intubation and the ICU at some point. Reconsult as needed. Critical Time Critical Time (minutes): 40 Level of Care: IMCU Anticipated discharge: Home Anticipated DC Timeframe: Other -: 1. The care of a critical patient is a dynamic process. This note is a re presentative synopsis but static in nature. The timeframe for treatments given in order is not necessarily the actual time these treatments may have been done. 2. This patient requires critical care secondary to ongoing requirements for therapy not offered or safe outside the critical care environment. Transfer to a lower level of care will result in altered life or limb morbidity and mortalit y. 3. Multidisciplinary rounds completed. 4. ABCDE bundle addressed.
[2020-09-01] MEDS ORDERED: MELATONIN 5 MG TABLET PO SCH (22:00)
[2020-09-01] MEDS: METOPROLOL TARTRATE 50 MG TABLET PO SCH (22:44)
[2020-09-01] MEDS: SIMVASTATIN 10 MG TABLET PO SCH (22:44)
[2020-09-02] MEDS: ACETAMINOPHEN 325 MG TABLET PO PRN (04:11)
[2020-09-02 05:35] LABS: HEMATOCRIT 39.5 % (37.9-51.0); HEMOGLOBIN 13.5 g/dL (13.5-17.0); MEAN CORPUSCULAR HGB CONC 34.1 g/dL (32.0-36.0); MEAN CORPUSCULAR VOLUME 88 fl (80-97); PLATELET COUNT 172 10^3/uL (150-450); RED BLOOD COUNT 4.48 10^6/uL (4.35-5.55); RED CELL DISTRIBUTION WIDTH 14.1 % (11.5-14.0); WHITE BLOOD COUNT 9.2 10^3/uL (4.0-10.5)
[2020-09-02 05:55] LABS: ALBUMIN 3.9 g/dL (3.5-5.0); ALKALINE PHOSPHATASE 72 U/L (38-126); ANION GAP 9 (5-19); ASPARTATE AMINO TRANSFERASE 49 U/L (17-59); BILIRUBIN,DIRECT 0.4 mg/dL (0.0-0.4); BILIRUBIN,TOTAL 0.8 mg/dL (0.2-1.3); BLOOD UREA NITROGEN 25 mg/dL (7-20); CALCIUM 9.3 mg/dL (8.4-10.2); CARBON DIOXIDE 34 mmol/L (22-30); CHLORIDE 103 mmol/L (98-107); GLUCOSE 208 mg/dL (75-110); POTASSIUM 3.9 mmol/L (3.6-5.0); TOTAL PROTEIN 7.7 g/dL (6.3-8.2)
[2020-09-02 06:28] LABS: ABSOLUTE LYMPHOCYTES# (MANUAL) 0.5 10^3/uL (0.5-4.7); ABSOLUTE MONOCYTES # (MANUAL) 0.5 10^3/uL (0.1-1.4); BASOPHILS % (MANUAL) 0 % (0-2); EOSINOPHILS % (MANUAL) 0 % (0-6); LYMPHOCYTES % (MANUAL) 5 % (13-45); MONOCYTES % (MANUAL) 5 % (3-13); NUCLEATED RED BLOOD CELLS 1 /100 WBC (0); SEGMENTED NEUTROPHILS % (MAN) 90 % (42-78); TOTAL CELLS COUNTED 100
[2020-09-02 06:29] LABS: ANISOCYTOSIS SLIGHT; PLATELET COMMENT ADEQUATE
[2020-09-02] MEDS ORDERED: REMDESIVIR (EUA) 200 MG in NORMAL SALINE 250 ML IV ONE (08:30)
[2020-09-02] MEDS: LOSARTAN POTASSIUM 25 MG TABLET PO SCH (09:26)
[2020-09-02] MEDS: AZITHROMYCIN 250 MG TABLET PO SCH (09:26)
[2020-09-02] MEDS: METOPROLOL TARTRATE 50 MG TABLET PO SCH (09:26)
[2020-09-02] MEDS: CHOLECALCIFEROL (D3) 400 UNIT TABLET PO SCH (09:26)
[2020-09-02] MEDS: ASPIRIN 81 MG TABLET, ENT COATED PO SCH (09:26)
[2020-09-02] MEDS ORDERED: MORPHINE SULFATE 10 MG/ML INJ ONE ×2 (09:46→15:23)
[2020-09-02] MEDS: PANTOPRAZOLE SODIUM 40 MG TABLET.DR PO SCH (09:47)
[2020-09-02] MEDS: ASCORBIC ACID 500 MG TABLET PO SCH ×2 (09:48→23:28)
[2020-09-02] MEDS: ZINC SULFATE 220 MG CAPSULE PO SCH (09:48)
[2020-09-02] MEDS ORDERED: REMDESIVIR (EUA) 100 MG in NORMAL SALINE 250 ML IV SCH (10:00)
[2020-09-02] MEDS ORDERED: MORPHINE SULFATE 10 MG/ML INJ IV ONE ×2 (10:00→15:22)
[2020-09-02] MEDS: FUROSEMIDE INJ/PF 20 MG/2 ML SDV IV SCH (10:13)
[2020-09-02] MEDS: ENOXAPARIN SODIUM INJ 40 MG/0.4 ML DISP.SYRIN SUBCUT SCH (10:13)
[2020-09-02] MEDS: DEXAMETHASONE SOD PHOS INJ 10 MG/1 ML VIAL IV SCH (10:13)
[2020-09-02] MEDS: INSULIN LISPRO 100 UNIT/ML 3 ML VIAL SUBCUT SCH ×4 (11:56→23:34)
[2020-09-02] MEDS: CEFTRIAXONE SODIUM 1,500 MG in DEXTROSE 5%-WATER 100 ML IV SCH (12:39)
--- NOTE | 2020-09-02 15:02 | PDOC PROGRESS REPORT ---
Subjective Progress Note for:: 09/02/20 Subjective:: REYES MADISON is a 80 year old male, hx od Type 2 DM, HTN, HLD, former smoker who was brought to the ED today due to dyspnea. 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 He denied any cough,chest pain, palpitations, leg swelling, orthopnea. He developed fever a few hours WIRE ROLLER. No known COVID exposure. In the ED, BP 130/80s, HR 99, O2 sat 82% on RA improved to 95% on CPAP. CXR showed bilateral airspace disease. He was started on abx for presumed bacterial pneumonia. COVID test pending. D2 hospital stay. He was seen and examined at bedside. He remained on CPAP for most of the night as well as this morning and I was told by the nurse that he gets really short of breath with ambulation. He was able to eat while he was on nasal cannula with no desaturation. However he does feel short of breath without CPAP. He has very minimal cough, he denied chest pain. He is currently on CPAP of 8, 80% FiO2 saturating 91%. I was able to talk to his Mari over the phone and gave her an update on how the patient is doing. Covid test still pending but given his significant need for oxygen and characteristic chest x-ray findings I have decided to go ahead and treat him with remdesivir and convalescent plasma pending Covid test. D3 Hospital stay 09/01/20. He was seen and examined at bedside. He reports that his breathing is really not getting better. He tried using high flow nasal cannula but he desaturates on it that is why he has to go back to CPAP 90% FiO2. Repeat chest x-ray showed progression of pneumonia. Blood gas showed PO2 55.9, pH 7.44, PCO2 45.8. He is on day 2 of remdesivir, he also agreed to receive the convalescent plasma. I spoke to him about high possibility that he might need intubation with mechanical ventilation and he is agreeable to this if he needs it. He is aware of the poor prognosis. I was also able to speak to his Mari over the phone and updated her of the patient's condition and she is also aware of the decline in his lung function and the possibility that he might end up on a mechanical ventilator. D4 hospital stay 09/02/20. He was seen and Reason For Visit: BILATERAL PNEUMONIA,SUSPECTED COVID Physical Exam Vital Signs: Temp Pulse Resp BP Pulse Ox 97.6 F 110 H 46 H 144/80 H 88 L 09/02/20 10:00 09/02/20 14:00 09/02/20 04:12 09/02/20 03:26 09/02/20 04:12 Intake & Output 09/01/20 09/02/20 09/03/20 06:59 06:59 06:59 Intake Total 350 220 Output Total 575 200 Balance -225 20 Weight 105.2 kg 105.2 kg General appearance: PRESENT: severe distress Head exam: PRESENT: atraumatic, normocephalic Eye exam: PRESENT: EOMI, PERRLA Mouth exam: PRESENT: moist Neck exam: PRESENT: full ROM Respiratory exam: PRESENT: rales, rhonchi, symmetrical, tachypnea Cardiovascular exam: PRESENT: RRR, +S1, +S2 Pulses: PRESENT: +2 pedal pulses bilateral Breast: PRESENT: Normal GI/Abdominal exam: PRESENT: normal bowel sounds Extremities exam: PRESENT: full ROM Musculoskeletal exam: PRESENT: full ROM Neurological exam: PRESENT: alert, awake, oriented to person, oriented to place, oriented to time, oriented to situation Psychiatric exam: PRESENT: normal mood Skin exam: PRESENT: normal color Results Laboratory Results: 09/02/20 04:58 09/02/20 04:58 08/31/20 09/02/20 09/02/20 10:35 04:58 04:58 WBC 9.2 RBC 4.48 Hgb 13.5 Hct 39.5 MCV 88 MCH 30.0 MCHC 34.1 RDW 14.1 H Plt Count 172 Seg Neutrophils % Not Reportable Sodium 145.9 H Potassium 3.9 Chloride 103 Carbon Dioxide 34 H Anion Gap 9 BUN 25 H Creatinine 0.71 Est GFR ( Amer) > 60 Glucose 208 H Calcium 9.3 Total Bilirubin 0.8 AST 49 Alkaline Phosphatase 72 Total Protein 7.7 Albumin 3.9 Blood Type A POSITIVE 08/30/20 08/31/20 08/31/20 11:17 19:21 23:00 Troponin I 0.013 < 0.012 < 0.012 NT-Pro-B Natriuret Pep 78 Impressions: Chest/Abdomen CTA 08/30/20 00:00 IMPRESSION: 1. No evidence for acute pulmonary emboli. 2. Fairly extensive areas of consolidation and some scattered ground-glass opacities in the periphery of the lungs. Differential diagnosis includes pneumo everette, with COVId-19 pneumonia included in the differential. Correlation suggested. 2. A hypoattenuated splenic lesion. Calcified splenic granuloma also noted. Further evaluation with ultrasound examination suggested. Chest X-Ray 09/01/20 00:00 IMPRESSION: Rehydration versus progressing pneumonia. Assessment and Plan - Diagnosis (1) Acute respiratory failure with hypoxia Is this a current diagnosis for this admission?: Yes Plan: - worsening hypoxia now on 100% FIO2 on CPAP saturating 91% - COVID 19 POSITIVE - repeat CXR 09/01/20 showed worsening infiltrates - ABG Ph 7.44, PaO2 55.9, PCO2 45.8 - currently on D1 of Remdesivir - received convalescent plasma - on BIPAP for O2 support target O2 sat >90% He might need intubation and mechanical ventilation soon. - Prone positioning ordered. So far patient has been unable to tolerate prone positioning for more than a few minutes (2) Pneumonia due to COVID-19 virus Is this a current diagnosis for this admission?: Yes Plan: - worsening oxygenation - On d1 remdesivir - received convalescent plasma - on D3 dexamethasone - he has obesity, HTN, HLD which are all poor prognostic factors for COVID pneumonia - small doses of morphine seems to help his breathing and anxiety but in light of his respiratory compromise I am hesitant to give him more. (3) HTN (hypertension) Qualifiers: Hypertension type: essential hypertension Qualified Code(s): I10 - Essenti al (primary) hypertension Is this a current diagnosis for this admission?: Yes Plan: - stopped oral meds for now due to respiratory compromise - PRN labetalol (4) HLD (hyperlipidemia) Qualifiers: Hyperlipidemia type: unspecified Qualified Code(s): E78.5 - Hyperlipidemia, unspecified Is this a current diagnosis for this admission?: Yes Plan: - resume home meds (5) Morbid obesity with BMI of 40.0-44.9, adult Is this a current diagnosis for this admission?: Yes Plan: - again a poor prognostic risk factor for COVID. (6) DVT prophylaxis Is this a current diagnosis for this admission?: Yes Plan: D dimer 1.0 - on Lovenox (7) Tachycardia Is this a current diagnosis for this admission?: Yes Plan: -2/2 to respiratory failure - mainly sinus tachy - Time Time Spent with patient: 25-34 minutes Medications reviewed and adjusted accordingly: Yes Anticipated Discharge Disposition: Home, Self Care Anticipated Discharge Timeframe: to be determined
[2020-09-02] MEDS ORDERED: METOPROLOL TARTRATE PF/INJ 5 MG/5 ML SDV IV ONE ×2 (15:22→15:45)
[2020-09-02] MEDS ORDERED: METOPROLOL TARTRATE PF/INJ 5 MG/5 ML SDV IV PRN (15:36)
[2020-09-02 15:42] LABS: ARTERIAL BLOOD BASE EXCESS 5.9 mmol/L; ARTERIAL BLOOD FIO2 100%; ARTERIAL BLOOD H2CO3 1.32 mmol/L (1.05-1.35); ARTERIAL BLOOD HCO3 30.5 mmol/L (20-24); ARTERIAL BLOOD O2 SATURATION 90.5 % (94-98); ARTERIAL BLOOD PH 7.46 (7.35-7.45); ARTERIAL BLOOD TOTAL CO2 31.9 mmol/L (23-27)
--- NOTE | 2020-09-02 15:54 | CRITICAL CARE ADMISSION REPORT ---
HPI Date:: 09/02/20 Time:: 15:30 Reason for ICU Reason:: High risk of intubation Admission Date/Time & PCP: Admission Date/Time: 08/30/20 15:02 Primary Care Provider: ROGER AMEZCUA MD HPI: This patient is a 80 yo man with COVID-19 pneumonia maintained on the IMC with essentially no improvement and slight decline. He has been on bipap at 100% with Os saturations in the 88-90% range. He is essentially the same as when seen yesterday. However he has been intermittently confused and now states he is getting tired. Will move to the ICU for possible intubation. He is 80, AA, obese, hypertensive, and diabetic all poor prognostic signs. History obtained from:: Patient, Dr. Dawson, Patient - Diagnosis/Plan (1) Pneumonia due to COVID-19 virus Is this a current diagnosis for this admission?: Yes Plan: May need intubation at this point. (2) HTN (hypertension) Qualifiers: Hypertension type: essential hypertension Qualified Code(s): I10 - Essential (primary) hypertension Is this a current diagnosis for this admission?: Yes Plan: Controlled. (3) Morbid obesity with BMI of 40.0-44.9, adult Is this a current diagnosis for this admission?: Yes Plan: As mentioned a risk factor for poor prognosis. (4) Tachycardia Is this a current diagnosis for this admission?: Yes Plan: Still tachycardic as before. Plan Summary: Transfer to ICU and possible intubation. Past Medical History Cardiac Medical History: Reports: Hyperlipidema, Hypertension Pulmonary Medical History: Reports: None EENT Medical History: Reports: None Neurological Medical History: Reports: None Endocrine Medical History: Reports: Diabetes Mellitus Type 2 Renal/ Medical History: Reports: None Malignancy Medical History: Reports: None GI Medical History: Reports: None Musculoskeltal Medical History: Reports: Arthritis - KNEES, SHOULDERS AND BACK Psychiatric Medical History: Reports: None Denies: Depression Traumatic Medical History: Reports: None Hematology: Denies: Anemia Past Surgical History Past Surgical History: Reports: None Social/Family History - Social History Lives with: Family Smoking Status: Never Smoker Cigarettes Packs Per Day: 1 Frequency of Alcohol Use: None Hx Recreational Drug Use: No Drugs: None Hx Prescription Drug Abuse: No - Medication/Allergies Home Medications: Furosemide [Lasix] 40 mg PO DAILY 12/08/13 Simvastatin [Zocor 20 mg Tablet] 10 mg PO QHS 12/08/13 Acetaminophen [Tylenol 325 mg Tablet] 325 mg PO Q6HP PRN 08/31/20 Amlodipine Besylate [Norvasc 5 mg Tablet] 5 mg PO DAILY 08/31/20 Ammonium Lactate [Lac-Hydrin 12% Lotion 225Gm/Bottle] 1 applic TOP BID 08/31/20 Aspirin [Aspirin 81 mg Chewable Tablet] 81 mg PO DAILY 08/31/20 Carboxymethylcellulose Sodium [Refresh Tears] 1 drop OU QPMP PRN 08/31/20 Cetirizine HCl [Zyrtec 10 mg Tablet] 10 mg PO DAILY 08/31/20 Docusate Sodium [Colace 100 mg Capsule] 100 mg PO TIDP PRN 08/31/20 Ergocalciferol (Vitamin D2) [Drisdol 50,000 unit (1.25MG) Capsule] 50,000 unit PO [id number] 08/31/20 Fluticasone Propionate [Flonase Nasal [place] 50 Mcg/[place] 16 gm] 1 spray NASL BID 08/31/20 Glipizide [Glocotrol 10 Mg Tablet] 10 mg PO BID 08/31/20 Losartan Potassium 100 mg PO DAILY 08/31/20 Metformin HCl [Metformin HCl ER] 500 mg PO BID 08/31/20 Naproxen 500 mg PO BIDP PRN 08/31/20 Neomyc/Colist/Hydrocort/Thonzn [Cortisporin-Tc Ear Suspension] 2 drop AU BID 08/31/20 Olopatadine HCl [Patanol 0.1% Oph Soln 5 ml] 1 drop OU BID 08/31/20 Omeprazole 40 mg PO DAILY 08/31/20 Potassium Chloride [Klor-Con M10] 10 meq PO DAILY 08/31/20 Psyllium Husk [Metamucil] 0.8 gm PO QPM 08/31/20 Simethicone [Gas Relief] 80 mg PO ACHSP PRN 08/31/20 Triamcinolone Acetonide [Aristocort 0.1% Cream] 1 applic TOP BID 08/31/20 Allergies/Adverse Reactions: No Known Allergies Allergy (Verified 01/16/20 11:41) Review of Systems Constitutional: PRESENT: fatigue Eyes: ABSENT: visual disturbances Ears: ABSENT: hearing changes Cardiovascular: ABSENT: chest pain, dyspnea on exertion, edema, orthropnea, palpitations Respiratory: PRESENT: dyspnea Gastrointestinal: ABSENT: abdominal pain, constipation, diarrhea, hematemesis, hematochezia, nausea, vomiting Genitourinary: ABSENT: dysuria, hematuria Musculoskeletal: ABSENT: joint swelling Integumentary: ABSENT: rash, wounds Neurological: ABSENT: abnormal gait, abnormal speech, confusion, dizziness, f ocal weakness, syncope Psychiatric: ABSENT: anxiety, depression, homidical ideation, suicidal ideation Endocrine: ABSENT: cold intolerance, heat intolerance, polydipsia, polyuria Physical Exam Vital Signs: Temp Pulse Resp BP Pulse Ox 97.6 F 110 H 46 H 144/80 H 88 L 09/02/20 10:00 09/02/20 14:00 09/02/20 04:12 09/02/20 03:26 09/02/20 04:12 Intake & Output 09/01/20 09/02/20 09/03/20 06:59 06:59 06:59 Intake Total 350 220 Output Total 575 200 Balance -225 20 Weight 105.2 kg 105.2 kg Weight/Height Weight 105.2 kg Height 5 ft 4 in General appearance: PRESENT: no acute distress, cooperative, obese Head exam: PRESENT: atraumatic, normocephalic Eye exam: PRESENT: conjunctiva pink, EOMI, PERRLA. ABSENT: scleral icterus Ear exam: PRESENT: normal external ear exam Mouth exam: PRESENT: moist, tongue midline Neck exam: ABSENT: carotid bruit, JVD, lymphadenopathy, thyromegaly Respiratory exam: PRESENT: clear to auscultation preston, other - Lungs surprisingly clear.. ABSENT: rales, rhonchi, wheezes Cardiovascular exam: PRESENT: tachycardia GI/Abdominal exam: PRESENT: normal bowel sounds, soft. ABSENT: distended, guarding, mass, organolmegaly, rebound, tenderness Rectal exam: PRESENT: deferred Extremities exam: PRESENT: full ROM. ABSENT: calf tenderness, clubbing, pedal edema Musculoskeletal exam: PRESENT: normal inspection Neurological exam: PRESENT: alert, awake, oriented to person, oriented to place Skin exam: PRESENT: dry, intact, warm. ABSENT: cyanosis, rash Tubes/Lines: PRESENT: Other - Bpap Laboratory/Radiographs Laboratory Results: 09/02/20 04:58 09/02/20 04:58 08/31/20 09/02/20 09/02/20 10:35 04:58 04:58 WBC 9.2 RBC 4.48 Hgb 13.5 Hct 39.5 MCV 88 MCH 30.0 MCHC 34.1 RDW 14.1 H Plt Count 172 Seg Neutrophils % Not Reportable Carbonic Acid HCO3/H2CO3 Ratio ABG pH ABG pCO2 ABG pO2 ABG HCO3 ABG O2 Saturation ABG Base Excess FiO2 Sodium 145.9 H Potassium 3.9 Chloride 103 Carbon Dioxide 34 H Anion Gap 9 BUN 25 H Creatinine 0.71 Est GFR ( Amer) > 60 Glucose 208 H Calcium 9.3 Total Bilirubin 0.8 AST 49 Alkaline Phosphatase 72 Total Protein 7.7 Albumin 3.9 Blood Type A POSITIVE 09/02/20 15:13 WBC RBC Hgb Hct MCV MCH MCHC RDW Plt Count Seg Neutrophils % Carbonic Acid 1.32 HCO3/H2CO3 Ratio 23:1 ABG pH 7.46 H ABG pCO2 44.0 ABG pO2 56.0 L ABG HCO3 30.5 H ABG O2 Saturation 90.5 L ABG Base Excess 5.9 FiO2 100% Sodium Potassium Chloride Carbon Dioxide Anion Gap BUN Creatinine Est GFR ( Amer) Glucose Calcium Total Bilirubin AST Alkaline Phosphatase Total Protein Albumin Blood Type 08/30/20 08/31/20 08/31/20 11:17 19:21 23:00 Troponin I 0.013 < 0.012 < 0.012 NT-Pro-B Natriuret Pep 78 Impressions: Chest/Abdomen CTA 08/30/20 00:00 IMPRESSION: 1. No evidence for acute pulmonary emboli. 2. Fairly extensive areas of consolidation and some scattered ground-glass opacities in the periphery of the lungs. Differential diagnosis includes pneumonia, with COVId-19 pneumonia included in the differential. Correlation suggested. 2. A hypoattenuated splenic lesion. Calcified splenic granuloma also noted. Further evaluation with ultrasound examination suggested. Chest X-Ray 09/01/20 00:00 IMPRESSION: Rehydration versus progressing pneumonia. All labs, radiographs, diagnostic studies and EKGs were personally reviewed: Yes In addition, reports of radiographic and diagnostic studies were read: Yes Critical Time Critical Time (minutes): 40 -: The care of a critically ill patient is dynamic. This note represents a static moment in the admission process. Orders and treatments may be given simultaneously and urgently, and time is not collections representative of the treatment process. This patient requires Critical Care secondary to life threatening organ or limb dysfunction. Without Critical Care services, the patient is at risk for increased mortality and morbidity.
[2020-09-02] MEDS ORDERED: PROPOFOL 1,000 MG/100 ML INFUS..BTL IV ONE (16:37)
[2020-09-02] MEDS ORDERED: ETOMIDATE INJ/PF 20 MG/10 ML SDV IV ONE (16:42)
[2020-09-02] MEDS: PROPOFOL 1,000 MG/100 ML INFUS..BTL IV PRN ×4 (16:47→23:27)
[2020-09-02] MEDS ORDERED: DEXTROSE 50%-WATER 25 GM/50 ML DISP.SYRIN IV PRN ×2 (17:03)
[2020-09-02] MEDS ORDERED: GLUCAGON,HUMAN RECOMB 1 MG INJ SUBCUT PRN (17:03)
[2020-09-02] MEDS ORDERED: DEXTROSE 40% GEL 15 GM TUBE PO PRN ×2 (17:03)
[2020-09-02] MEDS ORDERED: (PENDING PHARMACY ID) (Carboxymethylcellulose Sodium [Refresh Tears] 1 DROP) OU PRN (17:09)
[2020-09-02] MEDS ORDERED: LORAZEPAM INJ 2 MG/1 ML VIAL IV PRN (17:11)
[2020-09-02] MEDS ORDERED: VECURONIUM BROMIDE INJ 10 MG VIAL IV ONE ×2 (17:11)
[2020-09-02] MEDS ORDERED: PHARMACY COMMUNICATION ORDER MC NR (17:15)
[2020-09-02] MEDS: RINGERS SOLUTION,LACTATED 1,000 ML IV PRN (17:44)
--- NOTE | 2020-09-02 18:05 | RADIOLOGY REPORT (SQ) ---
EXAM DESCRIPTION: CHEST SINGLE VIEW IMAGES COMPLETED DATE/TIME: 09/02/2020 5:22 pm REASON FOR STUDY: ETT placement COMPARISON: 09/01/2020 EXAM PARAMETERS: NUMBER OF VIEWS: One view. TECHNIQUE: Single frontal radiographic view of the chest acquired. RADIATION DOSE: NA LIMITATIONS: None. FINDINGS: LUNGS AND PLEURA: Marked bilateral opacification with air bronchograms. MEDIASTINUM AND HILAR STRUCTURES: No masses. Contour normal. HEART AND VASCULAR STRUCTURES: Heart normal in size. Normal vasculature. BONES: No acute findings. HARDWARE: Endotracheal tube has its tip 5 cm above the taqueria. An NG tube extends inside the stomach . OTHER: No other significant finding. IMPRESSION: Tube placement as described. Extensive bilateral pulmonary opacification, pulmonary radha ma versus pneumonia. TECHNICAL DOCUMENTATION: JOB ID: [id number] 2010 [employer]- All Rights Reserved Reading location - IP/workstation name: [email or web address]
[2020-09-02] MEDS ORDERED: SUCCINYLCHOLINE CHLORIDE INJ 200 MG/10 ML VIAL ONE (21:14)
[2020-09-02] MEDS: OLOPATADINE HCL 0.1% OPH SOLN 5 ML OU SCH (23:28)
[2020-09-03] MEDS: INSULIN LISPRO 100 UNIT/ML 3 ML VIAL SUBCUT SCH ×5 (01:24→23:34)
[2020-09-03] MEDS ORDERED: RINGERS SOLUTION,LACTATED 1,000 ML IV ONE (02:38)
[2020-09-03] MEDS: IPRATROPIUM/ALBUTEROL 0.5-2.5 MG/3 ML AMPUL NEB PRN (04:24)
[2020-09-03] MEDS: PROPOFOL 1,000 MG/100 ML INFUS..BTL IV PRN ×6 (05:50→21:51)
[2020-09-03 05:52] LABS: ARTERIAL BLOOD BASE EXCESS 2.2 mmol/L; ARTERIAL BLOOD H2CO3 1.74 mmol/L (1.05-1.35); ARTERIAL BLOOD HCO3 29.7 mmol/L (20-24); ARTERIAL BLOOD O2 SATURATION 94.5 % (94-98); ARTERIAL BLOOD PCO2 57.7 mmHg (35-45); ARTERIAL BLOOD PH 7.33 (7.35-7.45); ARTERIAL BLOOD PO2 78.1 mmHg (80-100); ARTERIAL BLOOD TOTAL CO2 31.4 mmol/L (23-27)
[2020-09-03 05:53] LABS: ARTERIAL BLOOD FIO2 100%
[2020-09-03 05:55] LABS: HEMATOCRIT 34.5 % (37.9-51.0); HEMOGLOBIN 11.5 g/dL (13.5-17.0); MEAN CORPUSCULAR HEMOGLOBIN 29.8 pg (27.0-33.4); MEAN CORPUSCULAR HGB CONC 33.3 g/dL (32.0-36.0); MEAN CORPUSCULAR VOLUME 90 fl (80-97); PLATELET COUNT 147 10^3/uL (150-450); RED BLOOD COUNT 3.86 10^6/uL (4.35-5.55); RED CELL DISTRIBUTION WIDTH 14.7 % (11.5-14.0); WHITE BLOOD COUNT 8.4 10^3/uL (4.0-10.5)
[2020-09-03 06:04] LABS: ALKALINE PHOSPHATASE 62 U/L (38-126); ANION GAP 8 (5-19); ASPARTATE AMINO TRANSFERASE 40 U/L (17-59); BILIRUBIN,DIRECT 0.2 mg/dL (0.0-0.4); BILIRUBIN,TOTAL 0.4 mg/dL (0.2-1.3); BLOOD UREA NITROGEN 42 mg/dL (7-20); CALCIUM 8.7 mg/dL (8.4-10.2); CARBON DIOXIDE 34 mmol/L (22-30); CHLORIDE 104 mmol/L (98-107); GLUCOSE 217 mg/dL (75-110); POTASSIUM 4.1 mmol/L (3.6-5.0); TOTAL PROTEIN 5.9 g/dL (6.3-8.2)
[2020-09-03 06:17] LABS: ABSOLUTE LYMPHOCYTES# (MANUAL) 0.6 10^3/uL (0.5-4.7); ABSOLUTE MONOCYTES # (MANUAL) 0.5 10^3/uL (0.1-1.4); ANISOCYTOSIS SLIGHT; BASOPHILS % (MANUAL) 0 % (0-2); EOSINOPHILS % (MANUAL) 0 % (0-6); LYMPHOCYTES % (MANUAL) 7 % (13-45); MONOCYTES % (MANUAL) 6 % (3-13); SEGMENTED NEUTROPHILS % (MAN) 87 % (42-78); TOTAL CELLS COUNTED 100
[2020-09-03 06:18] LABS: POIKILOCYTOSIS SLIGHT
[2020-09-03] MEDS: RINGERS SOLUTION,LACTATED 1,000 ML IV PRN ×2 (08:12→21:42)
--- NOTE | 2020-09-03 08:59 | PDOC CRITICAL CARE PROG REPORT ---
General Date:: 09/03/20 ICU Day:: 2 Ventilator Day:: 2 Hospital Day:: 4 Resuscitation Status: Full Code Events in the past 12 to 24 Hours:: Intubated and doing a bit worse with his Covid. Review of systems relevant to events:: Pulmonary. Reason for ICU Addmission:: Now intubated. - Medications: Medications reviewed and adjusted accordingly: Yes Vasopressors:: None. Sedation:: Diprivan Physical Exam Vital Signs: Temp Pulse Resp BP Pulse Ox 97.9 F 94 20 98/62 L 91 L 09/03/20 08:00 09/03/20 08:46 09/03/20 08:33 09/03/20 08:33 09/03/20 08:33 Intake & Output 09/02/20 09/03/20 09/04/20 06:59 06:59 05:59 Intake Total 220 1278 64 Output Total 200 350 30 Balance 20 928 34 Weight 105.2 kg 102 kg Weight/Height Weight 102 kg Height 5 ft 4 in General appearance: PRESENT: obese Head exam: PRESENT: atraumatic, normocephalic Eye exam: PRESENT: conjunctiva pink, EOMI, PERRLA. ABSENT: scleral icterus Ear exam: PRESENT: normal external ear exam Mouth exam: PRESENT: moist, tongue midline Respiratory exam: PRESENT: rhonchi, symmetrical Cardiovascular exam: PRESENT: RRR, tachycardia. ABSENT: diastolic murmur, rubs, systolic murmur GI/Abdominal exam: PRESENT: normal bowel sounds, soft. ABSENT: distended, guarding, mass, organolmegaly, rebound, tenderness Rectal exam: PRESENT: deferred Gentrourinary exam: PRESENT: indwelling catheter Extremities exam: PRESENT: full ROM. ABSENT: calf tenderness, clubbing, pedal edema Musculoskeletal exam: PRESENT: normal inspection Neurological exam: PRESENT: other - edated. Tubes/Lines: PRESENT: Endotracheal Tube, Nasogastic Tube Laboratory/Radiographs Laboratory Results: 09/03/20 05:25 09/03/20 05:25 09/02/20 09/03/20 09/03/20 15:13 05:25 05:25 WBC 8.4 RBC 3.86 L Hgb 11.5 L Hct 34.5 L MCV 90 MCH 29.8 MCHC 33.3 RDW 14.7 H Plt Count 147 L Seg Neutrophils % Not Reportable Carbonic Acid 1.32 HCO3/H2CO3 Ratio 23:1 ABG pH 7.46 H ABG pCO2 44.0 ABG pO2 56.0 L ABG HCO3 30.5 H ABG O2 Saturation 90.5 L ABG Base Excess 5.9 FiO2 100% Sodium 146.2 H Potassium 4.1 Chloride 104 Carbon Dioxide 34 H Anion Gap 8 BUN 42 H Creatinine 1.36 H Est GFR ( Amer) > 60 Glucose 217 H Calcium 8.7 Total Bilirubin 0.4 AST 40 Alkaline Phosphatase 62 Total Protein 5.9 L Albumin 3.0 L 09/03/20 05:25 WBC RBC Hgb Hct MCV MCH MCHC RDW Plt Count Seg Neutrophils % Carbonic Acid 1.74 H HCO3/H2CO3 Ratio 17:1 ABG pH 7.33 L ABG pCO2 57.7 H ABG pO2 78.1 L ABG HCO3 29.7 H ABG O2 Saturation 94.5 ABG Base Excess 2.2 FiO2 100% Sodium Potassium Chloride Carbon Dioxide Anion Gap BUN Creatinine Est GFR ( Amer) Glucose Calcium Total Bilirubin AST Alkaline Phosphatase Total Protein Albumin 08/30/20 08/31/20 08/31/20 11:17 19:21 23:00 Troponin I 0.013 < 0.012 < 0.012 NT-Pro-B Natriuret Pep 78 Impressions: Chest/Abdomen CTA 08/30/20 00:00 IMPRESSION: 1. No evidence for acute pulmonary emboli. 2. Fairly extensive areas of consolidation and some scattered ground-glass opac ities in the periphery of the lungs. Differential diagnosis includes pneumonia, with COVId-19 pneumonia included in the differential. Correlation suggested. 2. A hypoattenuated splenic lesion. Calcified splenic granuloma also noted. Further evaluation with ultrasound examination suggested. Chest X-Ray 09/02/20 16:58 IMPRESSION: Tube placement as described. Extensive bilateral pulmonary opacification, pulmonary edema versus pneumonia. All labs, radiographs, diagnostic studies and EKGs were personally reviewed: Yes In addition, reports of radiographic and diagnostic studies were read: Yes Assessment and Plan - Diagnosis (1) Pneumonia due to COVID-19 virus Is this a current diagnosis for this admission?: Yes Plan: He is stable with a higher O2 saturation but not extubatable. (2) HTN (hypertension) Qualifiers: Hypertension type: essential hypertension Qualified Code(s): I10 - Essential (primary) hypertension Is this a current diagnosis for this admission?: Yes Plan: Controlled, slightly hypotesive on Diprivan. (3) Morbid obesity with BMI of 40.0-44.9, adult Is this a current diagnosis for this admission?: Yes Plan: Chronic and a risk factor for COVID mortality. (4) Tachycardia Is this a current diagnosis for this admission?: Yes Plan: Much improved now. Plan Summary: Not much movement on ventilator. Start tube feeds as I believe this will be a jail intubation. Critical Time Critical Time (minutes): 35 Level of Care: ICU Anticipated discharge: SNF Anticipated DC Timeframe: Other -: 1. The care of a critical patient is a dynamic process. This note is a leather goods sales representative synopsis but static in nature. The timeframe for treatments given in order is not necessarily the actual time these treatments may have been done. 2. This patient requires critical care secondary to ongoing requirements for therapy not offered or safe outside the critical care environment. Transfer to a lower level of care will result in altered life or limb morbidity and mortality. 3. Multidisciplinary rounds completed. 4. ABCDE bundle addressed.
[2020-09-03] MEDS: IPRATROPIUM/ALBUTEROL 0.5-2.5 MG/3 ML AMPUL NEB SCH ×4 (09:01→20:19)
[2020-09-03] MEDS: FUROSEMIDE INJ/PF 20 MG/2 ML SDV IV SCH (09:15)
[2020-09-03] MEDS: AZITHROMYCIN 250 MG TABLET PO SCH (09:42)
[2020-09-03] MEDS: PANTOPRAZOLE SODIUM 40 MG VIAL IV SCH (09:42)
[2020-09-03] MEDS: ENOXAPARIN SODIUM INJ 40 MG/0.4 ML DISP.SYRIN SUBCUT SCH (09:42)
[2020-09-03] MEDS: ASPIRIN 81 MG TABLET, CHEWABLE NG SCH (09:42)
[2020-09-03] MEDS: ASCORBIC ACID 500 MG TABLET PO SCH (09:42)
[2020-09-03] MEDS: ZINC SULFATE 220 MG CAPSULE PO SCH (09:42)
[2020-09-03] MEDS: DEXAMETHASONE SOD PHOS INJ 10 MG/1 ML VIAL IV SCH (09:43)
[2020-09-03] MEDS: OLOPATADINE HCL 0.1% OPH SOLN 5 ML OU SCH ×2 (10:02→17:22)
[2020-09-03] MEDS: REMDESIVIR (EUA) 100 MG in NORMAL SALINE 250 ML IV SCH (10:02)
[2020-09-03] MEDS: CHOLECALCIFEROL (D3) 400 UNIT TABLET PO SCH (10:21)
[2020-09-03] MEDS ORDERED: ONDANSETRON 4 MG TAB.RAPDIS NG PRN (10:30)
[2020-09-03] MEDS ORDERED: HYDROCODONE/ACETAMINOPHEN 5-325 MG TABLET NG PRN (10:30)
[2020-09-03] MEDS ORDERED: ACETAMINOPHEN 325 MG TABLET NG PRN (10:30)
[2020-09-03] MEDS: CEFTRIAXONE SODIUM 1,500 MG in DEXTROSE 5%-WATER 100 ML IV SCH (11:40)
[2020-09-03] MEDS: HYDROMORPHONE HCL INJ/PF 2 MG/ML AMPULE IV PRN (17:18)
[2020-09-03] MEDS: ASCORBIC ACID 500 MG TABLET NG SCH (17:22)
[2020-09-03 21:13] LABS: ARTERIAL BLOOD BASE EXCESS 4.8 mmol/L; ARTERIAL BLOOD H2CO3 1.71 mmol/L (1.05-1.35); ARTERIAL BLOOD HCO3 31.6 mmol/L (20-24); ARTERIAL BLOOD O2 SATURATION 90.7 % (94-98); ARTERIAL BLOOD PCO2 56.9 mmHg (35-45); ARTERIAL BLOOD PH 7.36 (7.35-7.45); ARTERIAL BLOOD PO2 62.5 mmHg (80-100); ARTERIAL BLOOD TOTAL CO2 33.4 mmol/L (23-27)
[2020-09-03 21:15] LABS: ARTERIAL BLOOD FIO2 100%
[2020-09-04] MEDS: IPRATROPIUM/ALBUTEROL 0.5-2.5 MG/3 ML AMPUL NEB SCH ×6 (00:47→20:31)
[2020-09-04] MEDS: PROPOFOL 1,000 MG/100 ML INFUS..BTL IV PRN ×7 (01:32→19:17)
[2020-09-04 05:54] LABS: HEMOGLOBIN 12.5 g/dL (13.5-17.0); MEAN CORPUSCULAR HEMOGLOBIN 30.4 pg (27.0-33.4); MEAN CORPUSCULAR HGB CONC 33.9 g/dL (32.0-36.0); MEAN CORPUSCULAR VOLUME 90 fl (80-97); RED BLOOD COUNT 4.12 10^6/uL (4.35-5.55); RED CELL DISTRIBUTION WIDTH 14.7 % (11.5-14.0); WHITE BLOOD COUNT 7.9 10^3/uL (4.0-10.5)
[2020-09-04] MEDS: INSULIN LISPRO 100 UNIT/ML 3 ML VIAL SUBCUT SCH ×3 (06:01→17:01)
[2020-09-04 06:07] LABS: ANION GAP 10 (5-19); BLOOD UREA NITROGEN 44 mg/dL (7-20); CALCIUM 8.7 mg/dL (8.4-10.2); CARBON DIOXIDE 33 mmol/L (22-30); CHLORIDE 103 mmol/L (98-107); GLUCOSE 311 mg/dL (75-110)
[2020-09-04 06:36] LABS: ABSOLUTE LYMPHOCYTES# (MANUAL) 0.6 10^3/uL (0.5-4.7); ABSOLUTE MONOCYTES # (MANUAL) 0.3 10^3/uL (0.1-1.4); BASOPHILS % (MANUAL) 0 % (0-2); EOSINOPHILS % (MANUAL) 0 % (0-6); LYMPHOCYTES % (MANUAL) 7 % (13-45); MONOCYTES % (MANUAL) 4 % (3-13); SEGMENTED NEUTROPHILS % (MAN) 89 % (42-78); TOTAL CELLS COUNTED 100
[2020-09-04 06:37] LABS: ANISOCYTOSIS SLIGHT; PLATELET CLUMPS PRESENT; PLATELET COMMENT ADEQUATE
[2020-09-04 06:38] LABS: BURR CELLS SLIGHT
[2020-09-04 06:39] LABS: PLATELET COUNT 129 10^3/uL (150-450)
[2020-09-04 07:21] LABS: ARTERIAL BLOOD BASE EXCESS 8.6 mmol/L; ARTERIAL BLOOD H2CO3 1.56 mmol/L (1.05-1.35); ARTERIAL BLOOD HCO3 34.2 mmol/L (20-24); ARTERIAL BLOOD O2 SATURATION 89.7 % (94-98); ARTERIAL BLOOD PCO2 51.8 mmHg (35-45); ARTERIAL BLOOD PH 7.44 (7.35-7.45); ARTERIAL BLOOD PO2 56.2 mmHg (80-100); ARTERIAL BLOOD TOTAL CO2 35.7 mmol/L (23-27)
[2020-09-04 07:24] LABS: ARTERIAL BLOOD FIO2 100%
--- NOTE | 2020-09-04 08:15 | PDOC CRITICAL CARE PROG REPORT ---
General Date:: 09/04/20 ICU Day:: 3 Ventilator Day:: 3 Hospital Day:: 5 Resuscitation Status: Full Code Events in the past 12 to 24 Hours:: No real change in oxygenation status. Review of systems relevant to events:: Pulmonary. Reason for ICU Addmission:: Now intubated. - Medications: Medications reviewed and adjusted accordingly: Yes Vasopressors:: None Sedation:: None Physical Exam Vital Signs: Temp Pulse Resp BP Pulse Ox 99.1 F 99 24 H 138/69 H 92 09/04/20 05:32 09/04/20 04:24 09/04/20 06:04 09/04/20 06:04 09/04/20 06:04 Intake & Output 09/03/20 09/04/20 09/05/20 07:59 06:59 06:59 Intake Total Output Total Balance Weight Weight/Height Weight 106.4 kg Height 5 ft 4 in General appearance: PRESENT: obese Head exam: PRESENT: atraumatic, normocephalic Eye exam: PRESENT: conjunctiva pink, EOMI, PERRLA. ABSENT: scleral icterus Ear exam: PRESENT: normal external ear exam Mouth exam: PRESENT: moist, tongue midline Respiratory exam: PRESENT: clear to auscultation preston, crackles. ABSENT: rales, rhonchi, wheezes Cardiovascular exam: PRESENT: RRR, tachycardia. ABSENT: diastolic murmur, rubs, systolic murmur GI/Abdominal exam: PRESENT: normal bowel sounds, soft. ABSENT: distended, guarding, mass, organolmegaly, rebound, tenderness Rectal exam: PRESENT: deferred Gentrourinary exam: PRESENT: indwelling catheter Extremities exam: PRESENT: full ROM. ABSENT: calf tenderness, clubbing, pedal edema Musculoskeletal exam: PRESENT: normal inspection Neurological exam: PRESENT: other - Sedated heavily Skin exam: PRESENT: dry, intact, warm. ABSENT: cyanosis, rash Tubes/Lines: PRESENT: Endotracheal Tube, Nasogastic Tube Laboratory/Radiographs Laboratory Results: 09/04/20 05:24 09/04/20 05:24 09/03/20 09/04/20 09/04/20 20:55 05:24 05:24 WBC 7.9 RBC 4.12 L Hgb 12.5 L Hct 37.0 L MCV 90 MCH 30.4 MCHC 33.9 RDW 14.7 H Plt Count 129 L Seg Neutrophils % Not Reportable Carbonic Acid 1.71 H HCO3/H2CO3 Ratio 18:1 ABG pH 7.36 ABG pCO2 56.9 H ABG pO2 62.5 L ABG HCO3 31.6 H ABG O2 Saturation 90.7 L ABG Base Excess 4.8 FiO2 100% Sodium 145.6 H Potassium 4.0 Chloride 103 Carbon Dioxide 33 H Anion Gap 10 BUN 44 H Creatinine 1.09 Est GFR ( Amer) > 60 Glucose 311 H Calcium 8.7 09/04/20 06:52 WBC RBC Hgb Hct MCV MCH MCHC RDW Plt Count Seg Neutrophils % Carbonic Acid 1.56 H HCO3/H2CO3 Ratio 21:1 ABG pH 7.44 ABG pCO2 51.8 H ABG pO2 56.2 L ABG HCO3 34.2 H ABG O2 Saturation 89.7 L ABG Base Excess 8.6 FiO2 100% Sodium Potassium Chloride Carbon Dioxide Anion Gap BUN Creatinine Est GFR ( Amer) Glucose Calcium 08/30/20 08/31/20 08/31/20 11:17 19:21 23:00 Troponin I 0.013 < 0.012 < 0.012 NT-Pro-B Natriuret Pep 78 Impressions: Chest/Abdomen CTA 08/30/20 00:00 IMPRESSION: 1. No evidence for acute pulmonary emboli. 2. Fairly extensive areas of consolidation and some scattered ground-glass opacities in the periphery of the lungs. Differential diagnosis includes pneumonia, with COVId-19 pneumonia included in the differential. Correlation suggested. 2. A hypoattenuated splenic lesion. Calcified splenic granuloma also noted. Further evaluation with ultrasound examination suggested. Chest X-Ray 09/02/20 16:58 IMPRESSION: Tube placement as described. Extensive bilateral pulmonary opacification, pulmonary edema versus pneumonia. All labs, radiographs, diagnostic studies and EKGs were personally reviewed: Yes In addition, reports of radiographic and diagnostic studies were read: Yes Assessment and Plan - Diagnosis (1) Pneumonia due to COVID-19 virus Is this a current diagnosis for this admission?: Yes Plan: He still needs 100% FiO2. Oxygen saturations only 93%. pH 7.44 essentially no room to make on vent right now. (2) HTN (hypertension) Qualifiers: Hypertension type: essential hypertension Qualified Code(s): I10 - Essential (primary) hypertension Is this a current diagnosis for this admission?: Yes Plan: Controlled, another risk factor for COVID mortality. (3) Morbid obesity with BMI of 40.0-44.9, adult Is this a current diagnosis for this admission?: Yes Plan: Another risk factor for COVID mortality. (4) Tachycardia Is this a current diagnosis for this admission?: Yes Plan: Likely compensatory from his lung disease. Plan Summary: No real change to make on vent. He is critically ill and has a high risk of . Family encouraged to come in and will see him. Critical Time Critical Time (minutes): 35 Level of Care: ICU Anticipated discharge: Other Anticipated DC Timeframe: Other -: 1. The care of a critical patient is a dynamic process. This note is a outside industrial sales representative synopsis but static in nature. The timeframe for treatments given in order is not necessarily the actual time these treatments may have been done. 2. This patient requires critical care secondary to ongoing requirements for therapy not offered or safe outside the critical care environment. Transfer to a lower level of care will result in altered life or limb morbidity and mortality. 3. Multidisciplinary rounds completed. 4. ABCDE bundle addressed.
[2020-09-04] MEDS: ASPIRIN 81 MG TABLET, CHEWABLE NG SCH (09:36)
[2020-09-04] MEDS: AZITHROMYCIN 250 MG TABLET NG SCH (09:36)
[2020-09-04] MEDS: CHOLECALCIFEROL (D3) 400 UNIT TABLET NG SCH (09:36)
[2020-09-04] MEDS: ZINC SULFATE 220 MG CAPSULE NG SCH (09:36)
[2020-09-04] MEDS: PANTOPRAZOLE SODIUM 40 MG VIAL IV SCH (09:36)
[2020-09-04] MEDS: ENOXAPARIN SODIUM INJ 40 MG/0.4 ML DISP.SYRIN SUBCUT SCH (09:36)
[2020-09-04] MEDS: ASCORBIC ACID 500 MG TABLET NG SCH ×2 (09:36→17:00)
[2020-09-04] MEDS: OLOPATADINE HCL 0.1% OPH SOLN 5 ML OU SCH ×2 (09:36→17:01)
[2020-09-04] MEDS: CEFTRIAXONE SODIUM 1,500 MG in DEXTROSE 5%-WATER 100 ML IV SCH (09:50)
[2020-09-04] MEDS ORDERED: INSULIN GLARGINE,HUM.REC.ANLOG 1,000 UNIT/10 ML VIAL SUBCUT SCH ×2 (10:00→22:00)
[2020-09-04] MEDS: RINGERS SOLUTION,LACTATED 1,000 ML IV PRN ×2 (10:02→23:15)
[2020-09-04] MEDS: DEXAMETHASONE SOD PHOSPHATE INJ 4 MG/1 ML VIAL IV SCH (10:23)
[2020-09-04] MEDS: FUROSEMIDE INJ/PF 20 MG/2 ML SDV IV SCH (10:24)
[2020-09-04] MEDS: REMDESIVIR (EUA) 100 MG in NORMAL SALINE 250 ML IV SCH (10:25)
[2020-09-04] MEDS: HYDROMORPHONE HCL INJ/PF 2 MG/ML AMPULE IV PRN (11:11)
[2020-09-04] MEDS ORDERED: INSULIN GLARGINE,HUM.REC.ANLOG 1,000 UNIT/10 ML VIAL (PYX) SUBCUT ONE (22:22)
[2020-09-05] MEDS: IPRATROPIUM/ALBUTEROL 0.5-2.5 MG/3 ML AMPUL NEB SCH ×6 (00:23→19:49)
[2020-09-05] MEDS: INSULIN LISPRO 100 UNIT/ML 3 ML VIAL SUBCUT SCH ×4 (00:25→17:47)
[2020-09-05] MEDS: PROPOFOL 1,000 MG/100 ML INFUS..BTL IV PRN ×8 (00:51→22:47)
[2020-09-05 05:06] LABS: ANION GAP 6 (5-19); BLOOD UREA NITROGEN 40 mg/dL (7-20); CALCIUM 8.6 mg/dL (8.4-10.2); CARBON DIOXIDE 33 mmol/L (22-30); CHLORIDE 108 mmol/L (98-107); GLUCOSE 303 mg/dL (75-110); POTASSIUM 4.5 mmol/L (3.6-5.0)
[2020-09-05] MEDS ORDERED: CARBOXYMETHYLCELLULOSE SOD 0.5% 0.4 ML DROPERETTE OU PRN (08:07)
[2020-09-05] MEDS: PANTOPRAZOLE SODIUM 40 MG VIAL IV SCH (09:15)
[2020-09-05] MEDS: AZITHROMYCIN 250 MG TABLET NG SCH (09:16)
[2020-09-05] MEDS: ASPIRIN 81 MG TABLET, CHEWABLE NG SCH (09:16)
[2020-09-05] MEDS: CHOLECALCIFEROL (D3) 400 UNIT TABLET NG SCH (09:16)
[2020-09-05] MEDS: FUROSEMIDE INJ/PF 20 MG/2 ML SDV IV SCH (09:16)
[2020-09-05] MEDS: ASCORBIC ACID 500 MG TABLET NG SCH ×2 (09:16→18:33)
[2020-09-05] MEDS: ZINC SULFATE 220 MG CAPSULE NG SCH (09:16)
[2020-09-05] MEDS: ENOXAPARIN SODIUM INJ 40 MG/0.4 ML DISP.SYRIN SUBCUT SCH (09:17)
[2020-09-05] MEDS: DEXAMETHASONE SOD PHOSPHATE INJ 4 MG/1 ML VIAL IV SCH (09:17)
[2020-09-05] MEDS: OLOPATADINE HCL 0.1% OPH SOLN 5 ML OU SCH ×2 (09:18→18:34)
[2020-09-05] MEDS ORDERED: INSULIN GLARGINE,HUM.REC.ANLOG 1,000 UNIT/10 ML VIAL SUBCUT SCH (10:00)
[2020-09-05] MEDS: REMDESIVIR (EUA) 100 MG in NORMAL SALINE 250 ML IV SCH (10:32)
[2020-09-05] MEDS: CEFTRIAXONE SODIUM 1,500 MG in DEXTROSE 5%-WATER 100 ML IV SCH (10:32)
[2020-09-05] MEDS: HYDROMORPHONE HCL INJ/PF 2 MG/ML AMPULE IV PRN ×2 (11:24→23:41)
--- NOTE | 2020-09-05 13:53 | PDOC CRITICAL CARE PROG REPORT ---
General Date:: 09/05/20 ICU Day:: 3 Ventilator Day:: 3 Hospital Day:: 7 Resuscitation Status: Full Code Events in the past 12 to 24 Hours:: Higher blood sugars, lower O2 saturations Review of systems relevant to events:: Pulmonary Reason for ICU Addmission:: Now intubated. Prolonged ventilator course. - Medications: Medications reviewed and adjusted accordingly: Yes Vasopressors:: None. Sedation:: Diprivan Physical Exam Vital Signs: Temp Pulse Resp BP Pulse Ox 99.9 F 103 H 24 H 101/63 88 L 09/05/20 12:00 09/05/20 12:48 09/05/20 12:48 09/05/20 12:00 09/05/20 12:48 Intake & Output 09/04/20 09/05/20 09/06/20 06:59 06:59 06:59 Intake Total 3704 150 Output Total 2130 400 Balance 1574 -250 Weight 106 kg Weight/Height Weight 106 kg Height 5 ft 4 in General appearance: PRESENT: no acute distress, obese Head exam: PRESENT: atraumatic, normocephalic Eye exam: PRESENT: conjunctiva pink, EOMI, PERRLA. ABSENT: scleral icterus Ear exam: PRESENT: normal external ear exam Mouth exam: PRESENT: moist, tongue midline Respiratory exam: PRESENT: clear to auscultation preston, crackles, decreased breath sounds, symmetrical. ABSENT: rales, rhonchi, wheezes Cardiovascular exam: PRESENT: RRR, tachycardia. ABSENT: diastolic murmur, rubs, systolic murmur GI/Abdominal exam: PRESENT: normal bowel sounds, soft. ABSENT: distended, guarding, mass, organolmegaly, rebound, tenderness Rectal exam: PRESENT: deferred Gentrourinary exam: PRESENT: indwelling catheter Extremities exam: PRESENT: full ROM. ABSENT: calf tenderness, clubbing, pedal edema Musculoskeletal exam: PRESENT: normal inspection Neurological exam: PRESENT: other - Sedated Skin exam: PRESENT: dry, intact, warm. ABSENT: cyanosis, rash Tubes/Lines: PRESENT: Endotracheal Tube, Nasogastic Tube Laboratory/Radiographs Laboratory Results: 09/04/20 05:24 09/05/20 04:40 09/05/20 04:40 Sodium 147.2 H Potassium 4.5 Chloride 108 H Carbon Dioxide 33 H Anion Gap 6 BUN 40 H Creatinine 0.83 Est GFR ( Amer) > 60 Glucose 303 H Calcium 8.6 08/30/20 11:17 Blood Blood Culture - Final NO GROWTH IN 5 DAYS 08/30/20 14:50 Blood Blood Culture - Final NO GROWTH IN 5 DAYS 08/30/20 08/31/20 08/31/20 11:17 19:21 23:00 Troponin I 0.013 < 0.012 < 0.012 NT-Pro-B Natriuret Pep 78 Impressions: Chest/Abdomen CTA 08/30/20 00:00 IMPRESSION: 1. No evidence for acute pulmonary emboli. 2. Fairly extensive areas of consolidation and some scattered ground-glass opacities in the periphery of the lungs. Differential diagnosis includes pneumonia, with COVId-19 pneumonia included in the differential. Correlation suggested. 2. A hypoattenuated splenic lesion. Calcified splenic granuloma also noted. Further evaluation with ultrasound examination suggested. Chest X-Ray 09/02/20 16:58 IMPRESSION: Tube placement as described. Extensive bilateral pulmonary opacification, pulmonary edema versus pneumonia. All labs, radiographs, diagnostic studies and EKGs were personally reviewed: Yes In addition, reports of radiographic and diagnostic studies were read: Yes Assessment and Plan - Diagnosis (1) Pneumonia due to COVID-19 virus Is this a current diagnosis for this admission?: Yes Plan: He is still on 100% FIO2. His O2 saturations tend to drop as low as 70 when turned. He comes up slowly. We have not been able to make any meaningful change in his FIO2. (2) HTN (hypertension) Qualifiers: Hypertension type: essential hypertension Qualified Code(s): I10 - Essential (primary) hypertension Is this a current diagnosis for this admission?: Yes Plan: Controlled but another risk factor for COVID mortality. (3) Morbid obesity with BMI of 40.0-44.9, adult Is this a current diagnosis for this admission?: Yes Plan: Another risk factor for COVID mortality. (4) Tachycardia Is this a current diagnosis for this admission?: Yes Plan: This is slightly improved. Plan Summary: Maintain as is, there is little that can be added or subtracted. Last day of Remdesivir 09/06. Critical Time Critical Time (minutes): 35 Level of Care: ICU Anticipated discharge: SNF Anticipated DC Timeframe: Other -: 1. The care of a critical patient is a dynamic process. This note is a surgical sales representative synopsis but static in nature. The timeframe for treatments given in order is not necessarily the actual time these treatments may have been done. 2. This patient requires critical care secondary to ongoing requirements for therapy not offered or safe outside the critical care environment. Transfer to a lower level of care will result in altered life or limb morbidity and mortality. 3. Multidisciplinary rounds completed. 4. ABCDE bundle addressed.
[2020-09-05] MEDS: RINGERS SOLUTION,LACTATED 1,000 ML IV PRN (14:22)
[2020-09-05] MEDS ORDERED: FUROSEMIDE INJ/PF 40 MG/4 ML SDV IV ONE ×2 (18:22→21:02)
[2020-09-05] MEDS ORDERED: FUROSEMIDE INJ/PF 40 MG/4 ML SDV ONE (18:22)
[2020-09-05] MEDS: INSULIN GLARGINE,HUM.REC.ANLOG 1,000 UNIT/10 ML VIAL SUBCUT SCH (21:20)
[2020-09-06] MEDS: INSULIN LISPRO 100 UNIT/ML 3 ML VIAL SUBCUT SCH ×4 (00:07→17:56)
[2020-09-06] MEDS: IPRATROPIUM/ALBUTEROL 0.5-2.5 MG/3 ML AMPUL NEB SCH ×6 (00:49→19:52)
[2020-09-06 01:12] LABS: POTASSIUM 4.4 mmol/L (3.6-5.0)
[2020-09-06] MEDS: PROPOFOL 1,000 MG/100 ML INFUS..BTL IV PRN ×6 (02:54→20:09)
[2020-09-06 04:09] LABS: ARTERIAL BLOOD H2CO3 1.78 mmol/L (1.05-1.35); ARTERIAL BLOOD HCO3 36.7 mmol/L (20-24); ARTERIAL BLOOD O2 SATURATION 82.8 % (94-98); ARTERIAL BLOOD PH 7.41 (7.35-7.45); ARTERIAL BLOOD PO2 47.6 mmHg (80-100); ARTERIAL BLOOD TOTAL CO2 38.5 mmol/L (23-27)
[2020-09-06 04:10] LABS: ARTERIAL BLOOD FIO2 100%
[2020-09-06 04:29] LABS: ALKALINE PHOSPHATASE 87 U/L (38-126); ANION GAP 7 (5-19); ASPARTATE AMINO TRANSFERASE 45 U/L (17-59); BILIRUBIN,DIRECT 0.4 mg/dL (0.0-0.4); BILIRUBIN,TOTAL 0.8 mg/dL (0.2-1.3); BLOOD UREA NITROGEN 45 mg/dL (7-20); CALCIUM 8.5 mg/dL (8.4-10.2); CARBON DIOXIDE 35 mmol/L (22-30); CHLORIDE 105 mmol/L (98-107); GLUCOSE 387 mg/dL (75-110); POTASSIUM 4.6 mmol/L (3.6-5.0); TOTAL PROTEIN 6.3 g/dL (6.3-8.2)
[2020-09-06 06:00] LABS: HEMATOCRIT 40.1 % (37.9-51.0); HEMOGLOBIN 13.3 g/dL (13.5-17.0); MEAN CORPUSCULAR HEMOGLOBIN 29.8 pg (27.0-33.4); MEAN CORPUSCULAR VOLUME 90 fl (80-97); RED BLOOD COUNT 4.45 10^6/uL (4.35-5.55); RED CELL DISTRIBUTION WIDTH 15.1 % (11.5-14.0); WHITE BLOOD COUNT 10.9 10^3/uL (4.0-10.5)
[2020-09-06 06:30] LABS: PLATELET COUNT 91 10^3/uL (150-450)
[2020-09-06 06:39] LABS: ABSOLUTE LYMPHOCYTES# (MANUAL) 0.3 10^3/uL (0.5-4.7); ABSOLUTE MONOCYTES # (MANUAL) 0.5 10^3/uL (0.1-1.4); BASOPHILS % (MANUAL) 0 % (0-2); EOSINOPHILS % (MANUAL) 0 % (0-6); LYMPHOCYTES % (MANUAL) 3 % (13-45); MONOCYTES % (MANUAL) 5 % (3-13); SEGMENTED NEUTROPHILS % (MAN) 92 % (42-78); TOTAL CELLS COUNTED 100
[2020-09-06 06:41] LABS: ANISOCYTOSIS 1+; HELMET CELLS SLIGHT; OVALOCYTES 1+; POIKILOCYTOSIS 1+; SCHISTOCYTES SLIGHT; TEAR DROP CELLS SLIGHT; TOXIC GRANULATION SLIGHT; TOXIC VACUOLATION PRESENT
[2020-09-06 06:42] LABS: PLATELET COMMENT DECREASED
--- NOTE | 2020-09-06 08:45 | PDOC CRITICAL CARE PROG REPORT ---
General Date:: 09/06/20 ICU Day:: 4 Ventilator Day:: 4 Hospital Day:: 8 Resuscitation Status: Full Code Events in the past 12 to 24 Hours:: Essentially no change Review of systems relevant to events:: Pulmonary Reason for ICU Addmission:: Now intubated. Prolonged ventilator course. - Medications: Medications reviewed and adjusted accordingly: Yes Vasopressors:: None Sedation:: Diprivan Physical Exam Vital Signs: Temp Pulse Resp BP Pulse Ox 98.4 F 120 H 24 H 105/68 88 L 09/06/20 05:46 09/06/20 07:00 09/06/20 06:46 09/06/20 06:46 09/06/20 06:46 Intake & Output 09/05/20 09/06/20 09/07/20 06:59 06:59 06:59 Intake Total 3704 1500 Output Total 2130 3415 Balance 1574 -1915 Weight 106 kg 102.3 kg Weight/Height Weight 102.3 kg Height 5 ft 4 in General appearance: PRESENT: no acute distress Head exam: PRESENT: atraumatic, normocephalic Eye exam: PRESENT: conjunctiva pink, PERRLA, other - Conjugate. ABSENT: scleral icterus Ear exam: PRESENT: normal external ear exam Mouth exam: PRESENT: moist, tongue midline Respiratory exam: PRESENT: clear to auscultation preston, decreased breath sounds, other - Some bleeding from ETT.. ABSENT: rales, rhonchi, wheezes Cardiovascular exam: PRESENT: RRR, tachycardia. ABSENT: diastolic murmur, rubs, systolic murmur GI/Abdominal exam: PRESENT: normal bowel sounds, soft. ABSENT: distended, guarding, mass, organolmegaly, rebound, tenderness Rectal exam: PRESENT: deferred Gentrourinary exam: PRESENT: indwelling catheter Extremities exam: PRESENT: full ROM. ABSENT: calf tenderness, clubbing, pedal edema Musculoskeletal exam: PRESENT: normal inspection Neurological exam: PRESENT: other - Sedated Skin exam: PRESENT: dry, intact, warm. ABSENT: cyanosis, rash Tubes/Lines: PRESENT: Endotracheal Tube, Nasogastic Tube Laboratory/Radiographs Laboratory Results: 09/06/20 05:18 09/06/20 03:55 09/06/20 09/06/20 09/06/20 00:17 03:55 03:55 WBC Cancelled RBC Cancelled Hgb Cancelled Hct Cancelled MCV Cancelled MCH Cancelled MCHC Cancelled RDW Cancelled Plt Count Cancelled Seg Neutrophils % Cancelled Carbonic Acid HCO3/H2CO3 Ratio ABG pH ABG pCO2 ABG pO2 ABG HCO3 ABG O2 Saturation ABG Base Excess FiO2 Sodium 146.5 H Potassium 4.4 4.6 Chloride 105 Carbon Dioxide 35 H Anion Gap 7 BUN 45 H Creatinine 0.80 Est GFR ( Amer) > 60 Glucose 387 H Calcium 8.5 Magnesium 2.6 H Total Bilirubin 0.8 AST 45 Alkaline Phosphatase 87 Total Protein 6.3 Albumin 3.0 L 09/06/20 09/06/20 03:57 05:18 WBC 10.9 H RBC 4.45 Hgb 13.3 L Hct 40.1 MCV 90 MCH 29.8 MCHC 33.0 RDW 15.1 H Plt Count 91 L Seg Neutrophils % Not Reportable Carbonic Acid 1.78 H HCO3/H2CO3 Ratio 20:1 ABG pH 7.41 ABG pCO2 59.0 H ABG pO2 47.6 L ABG HCO3 36.7 H ABG O2 Saturation 82.8 L ABG Base Excess 10.0 FiO2 100% Sodium Potassium Chloride Carbon Dioxide Anion Gap BUN Creatinine Est GFR ( Amer) Glucose Calcium Magnesium Total Bilirubin AST Alkaline Phosphatase Total Protein Albumin 08/30/20 08/31/20 08/31/20 11:17 19:21 23:00 Troponin I 0.013 < 0.012 < 0.012 NT-Pro-B Natriuret Pep 78 Impressions: Chest/Abdomen CTA 08/30/20 00:00 IMPRESSION: 1. No evidence for acute pulmonary emboli. 2. Fairly extensive areas of consolidation and some scattered ground-glass opacities in the periphery of the lungs. Differential diagnosis includes pneumonia, with COVId-19 pneumonia included in the differential. Correlation suggested. 2. A hypoattenuated splenic lesion. Calcified splenic granuloma also noted. Further evaluation with ultrasound examination suggested. Chest X-Ray 09/02/20 16:58 IMPRESSION: Tube placement as described. Extensive bilateral pulmonary opacification, pulmonary edema versus pneumonia. All labs, radiographs, diagnostic studies and EKGs were personally reviewed: Yes In addition, reports of radiographic and diagnostic studies were read: Yes Assessment and Plan - Diagnosis (1) Pneumonia due to COVID-19 virus Is this a current diagnosis for this admission?: Yes Plan: He is still maintained on 100% and PEEP 14. O2 saturations 88-89%, no change.He is on remdesivir. Too obese to safely prone. Will try wedging on L side. (2) HTN (hypertension) Qualifiers: Hypertension type: essential hypertension Qualified Code(s): I10 - Esschance tial (primary) hypertension Is this a current diagnosis for this admission?: Yes Plan: Controlled (3) Morbid obesity with BMI of 40.0-44.9, adult Is this a current diagnosis for this admission?: Yes Plan: Chronic and a risk factor for mortality and will impede proning him. (4) Tachycardia Is this a current diagnosis for this admission?: Yes Plan: Unchanged Plan Summary: Main as is for now pending improvement. Critical Time Critical Time (minutes): 35 Level of Care: ICU Anticipated discharge: SNF Anticipated DC Timeframe: Other -: 1. The care of a critical patient is a dynamic process. This note is a cash application representative synopsis but static in nature. The timeframe for treatments given in order is not necessarily the actual time these treatments may have been done. 2. This patient requires critical care secondary to ongoing requirements for therapy not offered or safe outside the critical care environment. Transfer to a lower level of care will result in altered life or limb morbidity and mortality. 3. Multidisciplinary rounds completed. 4. ABCDE bundle addressed.
--- NOTE | 2020-09-06 09:54 | RADIOLOGY REPORT (SQ) ---
EXAM DESCRIPTION: CHEST SINGLE VIEW IMAGES COMPLETED DATE/TIME: 09/06/2020 9:38 am REASON FOR STUDY: Repositionaing of ETT. COMPARISON: 09/02/2020 NUMBER OF VIEWS: One view. TECHNIQUE: Single frontal radiographic image of the chest acquired. LIMITATIONS: None. FINDINGS: LUNGS AND PLEURA: Stable appearance. MEDIASTINUM AND HILAR STRUCTURES: Stable heart size and mediastinal structures. HEART AND VASCULAR STRUCTURES: Stable appearance. SUPPORT DEVICES: Endotracheal tube lies 1.7 cm above the taqueria. NG tube remains in place. Tip is n ot seen but is well below the GE junction. BONES: No acute findings. OTHER: No other significant finding. IMPRESSION: Support lines and tubes are in satisfactory position. Persistent diffuse bilateral airs pace disease. TECHNICAL DOCUMENTATION: JOB ID: [id number] 2010 [employer]- All Rights Reserved Reading location - IP/workstation name: [email or web address]
[2020-09-06] MEDS: PANTOPRAZOLE SODIUM 40 MG VIAL IV SCH (10:31)
[2020-09-06] MEDS: FUROSEMIDE INJ/PF 20 MG/2 ML SDV IV SCH (10:32)
[2020-09-06] MEDS: INSULIN GLARGINE,HUM.REC.ANLOG 1,000 UNIT/10 ML VIAL SUBCUT SCH ×2 (10:33→22:23)
[2020-09-06] MEDS: CEFTRIAXONE SODIUM 1,500 MG in DEXTROSE 5%-WATER 100 ML IV SCH (10:34)
[2020-09-06] MEDS: CHOLECALCIFEROL (D3) 400 UNIT TABLET NG SCH (10:34)
[2020-09-06] MEDS: ASCORBIC ACID 500 MG TABLET NG SCH ×2 (10:35→17:57)
[2020-09-06] MEDS: ZINC SULFATE 220 MG CAPSULE NG SCH (10:35)
[2020-09-06] MEDS: ASPIRIN 81 MG TABLET, CHEWABLE NG SCH (10:35)
[2020-09-06] MEDS: DEXAMETHASONE SOD PHOSPHATE INJ 4 MG/1 ML VIAL IV SCH (10:36)
[2020-09-06] MEDS: ENOXAPARIN SODIUM INJ 40 MG/0.4 ML DISP.SYRIN SUBCUT SCH (10:41)
[2020-09-06] MEDS: OLOPATADINE HCL 0.1% OPH SOLN 5 ML OU SCH ×2 (10:41→17:57)
[2020-09-06] MEDS: REMDESIVIR (EUA) 100 MG in NORMAL SALINE 250 ML IV SCH (11:49)
[2020-09-06] MEDS: HYDROMORPHONE HCL INJ/PF 2 MG/ML AMPULE IV PRN (17:58)
[2020-09-06] MEDS ORDERED: FUROSEMIDE INJ/PF 40 MG/4 ML SDV IV ONE (20:35)
[2020-09-06] MEDS ORDERED: FUROSEMIDE INJ/PF 20 MG/2 ML SDV ONE (21:22)
[2020-09-07] MEDS: IPRATROPIUM/ALBUTEROL 0.5-2.5 MG/3 ML AMPUL NEB SCH ×3 (00:07→08:58)
[2020-09-07] MEDS: INSULIN LISPRO 100 UNIT/ML 3 ML VIAL SUBCUT SCH ×2 (00:33→05:31)
[2020-09-07] MEDS: PROPOFOL 1,000 MG/100 ML INFUS..BTL IV PRN ×6 (00:46→23:15)
[2020-09-07 04:39] LABS: ALBUMIN 2.8 g/dL (3.5-5.0); ALKALINE PHOSPHATASE 84 U/L (38-126); ANION GAP 8 (5-19); ASPARTATE AMINO TRANSFERASE 46 U/L (17-59); BILIRUBIN,DIRECT 0.3 mg/dL (0.0-0.4); BILIRUBIN,TOTAL 0.6 mg/dL (0.2-1.3); BLOOD UREA NITROGEN 59 mg/dL (7-20); CALCIUM 8.3 mg/dL (8.4-10.2); CARBON DIOXIDE 36 mmol/L (22-30); CHLORIDE 106 mmol/L (98-107); POTASSIUM 4.9 mmol/L (3.6-5.0); TOTAL PROTEIN 6.2 g/dL (6.3-8.2)
[2020-09-07 04:49] LABS: ARTERIAL BLOOD BASE EXCESS 8.5 mmol/L; ARTERIAL BLOOD FIO2 100%; ARTERIAL BLOOD H2CO3 1.79 mmol/L (1.05-1.35); ARTERIAL BLOOD HCO3 35.3 mmol/L (20-24); ARTERIAL BLOOD O2 SATURATION 89.4 % (94-98); ARTERIAL BLOOD PCO2 59.6 mmHg (35-45); ARTERIAL BLOOD PH 7.39 (7.35-7.45); ARTERIAL BLOOD PO2 58.5 mmHg (80-100); ARTERIAL BLOOD TOTAL CO2 37.1 mmol/L (23-27)
[2020-09-07 04:52] LABS: GLUCOSE 408 mg/dL (75-110)
[2020-09-07] MEDS: NORMAL SALINE 100 ML with INSULIN REGULAR, HUMAN 100 UNIT IV PRN ×4 (10:19→16:07)
[2020-09-07] MEDS: FUROSEMIDE INJ/PF 20 MG/2 ML SDV IV SCH (10:23)
[2020-09-07] MEDS: DEXAMETHASONE SOD PHOSPHATE INJ 4 MG/1 ML VIAL IV SCH (10:24)
[2020-09-07] MEDS: CHOLECALCIFEROL (D3) 400 UNIT TABLET NG SCH (10:24)
[2020-09-07] MEDS: ZINC SULFATE 220 MG CAPSULE NG SCH (10:24)
[2020-09-07] MEDS: ASCORBIC ACID 500 MG TABLET NG SCH ×2 (10:24→17:35)
[2020-09-07] MEDS: PANTOPRAZOLE SODIUM 40 MG VIAL IV SCH (10:24)
[2020-09-07] MEDS: ASPIRIN 81 MG TABLET, CHEWABLE NG SCH (10:24)
[2020-09-07] MEDS: OLOPATADINE HCL 0.1% OPH SOLN 5 ML OU SCH ×2 (10:25→17:37)
[2020-09-07] MEDS ORDERED: FUROSEMIDE INJ/PF 40 MG/4 ML SDV IV ONE (11:34)
[2020-09-07] MEDS ORDERED: NORMAL SALINE INJ/PF 0.9% 10 ML SDV IV PRN (11:55)
--- NOTE | 2020-09-07 11:58 | Operative Report ---
Bedside Procedure - History of Present Illness Indication for Procedure: assessment of volume status; frequent lab draws; medication administration Date: 09/07/20 Provider: ANUJA [place] - Central Line Right Internal jugular Time completed: 11:00 Consent obtained: Yes Central line pre-insertion: Sterile PPE donned, Chloraprep applied, Sterile drapes applied Central line lumen type: Triple Anesthetic type: 1% Lidocaine mL's of anesthesia: 5 Ultrasound guided: Yes CM at insertion site: 19 Line secured with sutures: Yes Central line post-insertion: Blood return from lumens, Biopatch applied, Sutured, Sterile dressing applied, Position confirmed w/ CXR Number of attempts: 1 Complications: No
[2020-09-07] MEDS: NORMAL SALINE 250 ML with ARGATROBAN 250 MG IV PRN ×2 (12:22)
[2020-09-07] MEDS: FENTANYL CITRATE/PF 600 MCG/60 ML BAG IV PRN (12:27)
[2020-09-07] MEDS ORDERED: ALBUTEROL SULFATE 0.083% NEB 2.5 MG/3 ML AMPUL NEB PRN (12:41)
[2020-09-07 12:55] LABS: ARTERIAL BLOOD BASE EXCESS 7.4 mmol/L; ARTERIAL BLOOD H2CO3 2.31 mmol/L (1.05-1.35); ARTERIAL BLOOD HCO3 37.1 mmol/L (20-24); ARTERIAL BLOOD O2 SATURATION 92.6 % (94-98); ARTERIAL BLOOD PO2 73.6 mmHg (80-100); ARTERIAL BLOOD TOTAL CO2 39.4 mmol/L (23-27)
[2020-09-07 12:56] LABS: ARTERIAL BLOOD FIO2 100%
[2020-09-07 12:57] LABS: ARTERIAL BLOOD PCO2 76.9 mmHg (35-45)
--- NOTE | 2020-09-07 15:36 | RADIOLOGY REPORT (SQ) ---
EXAM DESCRIPTION: CHEST SINGLE VIEW IMAGES COMPLETED DATE/TIME: 09/07/2020 12:11 pm REASON FOR STUDY: CVC placement COMPARISON: CTA chest 08/30/2020 Multiple chest films since 08/30/2020 EXAM PARAMETERS: NUMBER OF VIEWS: One view. TECHNIQUE: Single frontal radiographic view of the chest acquired. RADIATION DOSE: NA LIMITATIONS: None. FINDINGS: LUNGS AND PLEURA: Diffuse alveolar and interstitial infiltrates worrisome for ARDS. Progr essive 08/30/2020, similar compared to yesterday. No gross pleural effusion or pneumothorax. MEDIASTINUM AND HILAR STRUCTURES: No masses. Contour normal. HEART AND VASCULAR STRUCTURES: No cardiomegaly BONES: No acute findings. HARDWARE: Right jugular central line tip expected location of superior vena cava. Endotracheal tube tip 4 cm above the taqueria. Nasogastric tube tip and side port in the stomach. OTHER: No other significant finding. IMPRESSION: Right jugular central line tip expected location of superior cava. No pneumothorax. Endotracheal tube, nasogastric tube in good positioning No change in diffuse alveolar and interstitial infiltrates compared to yesterday TECHNICAL DOCUMENTATION: JOB ID: [id number] 2010 [employer]- All Rights Reserved Reading location - IP/workstation name: [email or web address]
[2020-09-07 16:30] LABS: ARTERIAL BLOOD BASE EXCESS 5.4 mmol/L; ARTERIAL BLOOD FIO2 100%; ARTERIAL BLOOD H2CO3 2.15 mmol/L (1.05-1.35); ARTERIAL BLOOD HCO3 34.2 mmol/L (20-24); ARTERIAL BLOOD O2 SATURATION 93.8 % (94-98); ARTERIAL BLOOD PO2 78.1 mmHg (80-100); ARTERIAL BLOOD TOTAL CO2 36.4 mmol/L (23-27)
[2020-09-07 16:33] LABS: ARTERIAL BLOOD PCO2 71.3 mmHg (35-45)
[2020-09-07 16:38] LABS: BLOOD UREA NITROGEN 63 mg/dL (7-20); CALCIUM 8.6 mg/dL (8.4-10.2); CHLORIDE 107 mmol/L (98-107); GLUCOSE 137 mg/dL (75-110); POTASSIUM 4.6 mmol/L (3.6-5.0)
[2020-09-07 16:46] LABS: ANION GAP 6 (5-19)
[2020-09-07 16:50] LABS: CARBON DIOXIDE 39 mmol/L (22-30)
--- NOTE | 2020-09-07 18:01 | PDOC CRITICAL CARE PROG REPORT ---
General Date:: 09/07/20 ICU Day:: 6 Ventilator Day:: 6 Hospital Day:: 9 Resuscitation Status: Full Code Events in the past 12 to 24 Hours:: This 80-year-old -[place] male was admitted on 08/30/2020 with COVID-19 pneumonia. He was originally admitted to [facility]. He required BiPAP support and became progressively hypoxemic. He started demonstrating confusion and reported getting tired. He was transferred to the ICU on 09/02/2020, where he was intubated and placed on mechanical ventilatory support. 09/07: On PRVC 26/450/100%/18. ABG this a.m.: 7.39/60/59. Nurse reports patient received a single dose of furosemide 20 mg IV yesterday. retail shift leader reports repeat dosing overnight. Portably had decent (approximately 700 mL) diuresis but no significant difference in oxygenation. On propofol for sedation. RASS - 3. Review of systems relevant to events:: Pulmonary Reason for ICU Addmission:: Now intubated. Prolonged ventilator course. - Medications: Medications reviewed and adjusted accordingly: Yes Sedation:: Propofol. Physical Exam Vital Signs: Temp Pulse Resp BP Pulse Ox 97.6 F 115 H 26 H 106/71 92 09/07/20 04:00 09/07/20 07:00 09/07/20 06:28 09/07/20 06:28 09/07/20 06:28 Intake & Output 09/06/20 09/07/20 09/08/20 06:59 06:59 06:59 Intake Total 1750 1246 Output Total 3415 1760 175 Balance -1665 -514 -175 Weight 102.3 kg 107.3 kg Weight/Height Weight 107.3 kg Height 1.63 m General appearance: PRESENT: no acute distress, well-developed, well-nourished Head exam: PRESENT: atraumatic, normocephalic Eye exam: PRESENT: conjunctiva pink, EOMI, PERRLA. ABSENT: scleral icterus Mouth exam: PRESENT: moist, tongue midline Neck exam: ABSENT: carotid bruit, JVD, lymphadenopathy, thyromegaly Respiratory exam: PRESENT: clear to auscultation preston, tachypnea. ABSENT: rales, rhonchi, wheezes Cardiovascular exam: PRESENT: RRR, tachycardia. ABSENT: diastolic murmur, rubs, systolic murmur Pulses: PRESENT: normal dorsalis pedis pul GI/Abdominal exam: PRESENT: normal bowel sounds, soft. ABSENT: distended, guarding, mass, organolmegaly, rebound, tenderness Gentrourinary exam: PRESENT: indwelling catheter Extremities exam: PRESENT: full ROM. ABSENT: calf tenderness, clubbing, pedal edema Musculoskeletal exam: PRESENT: normal inspection. ABSENT: deformity Neurological exam: PRESENT: altered, CN II-XII grossly intact. ABSENT: motor sensory deficit Skin exam: PRESENT: dry, intact, warm. ABSENT: cyanosis, rash Tubes/Lines: PRESENT: Endotracheal Tube, Other - Orogastric tube Laboratory/Radiographs Laboratory Results: 09/06/20 05:18 09/07/20 04:05 09/07/20 09/07/20 04:05 04:25 Carbonic Acid 1.79 H HCO3/H2CO3 Ratio 19:1 ABG pH 7.39 ABG pCO2 59.6 H ABG pO2 58.5 L ABG HCO3 35.3 H ABG O2 Saturation 89.4 L ABG Base Excess 8.5 FiO2 100% Sodium 149.8 H Potassium 4.9 Chloride 106 Carbon Dioxide 36 H Anion Gap 8 BUN 59 H Creatinine 0.99 Est GFR ( Amer) > 60 Glucose 408 H* Calcium 8.3 L Total Bilirubin 0.6 AST 46 Alkaline Phosphatase 84 Total Protein 6.2 L Albumin 2.8 L 08/30/20 08/31/20 08/31/20 11:17 19:21 23:00 Troponin I 0.013 < 0.012 < 0.012 NT-Pro-B Natriuret Pep 78 Impressions: Chest/Abdomen CTA 08/30/20 00:00 IMPRESSION: 1. No evidence for acute pulmonary emboli. 2. Fairly extensive areas of consolidation and some scattered ground-glass opacities in the periphery of the lungs. Differential diagnosis includes pneumonia, with COVId-19 pneumonia included in the differential. Correlation suggested. 2. A hypoattenuated splenic lesion. Calcified splenic granuloma also noted. Further evaluation with ultrasound examination suggested. Chest X-Ray 09/06/20 00:00 IMPRESSION: Support lines and tubes are in satisfactory position. Persistent diffuse bilateral airspace disease. All labs, radiographs, diagnostic studies and EKGs were personally reviewed: Yes In addition, reports of radiographic and diagnostic studies were read: Yes Assessment and Plan - Diagnosis (1) Acute hypoxemic respiratory failure due to COVID-19 Is this a current diagnosis for this admission?: Yes Plan: * Titrate vent settings based on ABG results. * Wean PEEP as tolerated. * Continue remdesivir. * Continue Decadron. * Continue propofol. Titrate for RASS -2. * Add fentanyl infusion for sedation. (2) Morbid obesity with BMI of 40.0-44.9, adult Is this a current diagnosis for this admission?: Yes Plan: * Chronic and a risk factor for mortality. * His truncal obesity will impede proning him, as his abdomen is certainly going to increase restriction in the prone position. (3) Tachycardia Is this a current diagnosis for this admission?: Yes Plan: * Unchanged. It is unclear whether this is a physiologic tachycardia that could be related to volume status or suboptimal sedation while on mechanical ventilatory support. * Place central venous catheter. Monitor CVP. (4) Thrombocytopenia Is this a current diagnosis for this admission?: Yes Plan: * Stop Lovenox. * Start argatroban. 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 * Stop Lantus. * Start insulin infusion. * Accu-Cheks every 1 hour. Critical Time Critical Time (minutes): 60 Level of Care: ICU -: 1. The care of a critical patient is a dynamic process. This note is a account development representative synopsis but static in nature. The timeframe for treatments given in order is not necessarily the actual time these treatments may have been done. 2. This patient requires critical care secondary to ongoing requirements for therapy not offered or safe outside the critical care environment. Transfer to a lower level of care will result in altered life or limb morbidity and mortality. 3. Multidisciplinary rounds completed. 4. ABCDE bundle addressed.
[2020-09-07] MEDS: BUDESONIDE NEB 0.25 MG/2 ML AMPUL NEB SCH (20:03)
[2020-09-07] MEDS: ALBUTEROL SULFATE 0.083% NEB 2.5 MG/3 ML AMPUL NEB PRN (20:03)
[2020-09-08] MEDS: FENTANYL CITRATE/PF 600 MCG/60 ML BAG IV PRN ×3 (00:04→23:00)
[2020-09-08] MEDS: PROPOFOL 1,000 MG/100 ML INFUS..BTL IV PRN ×4 (02:27→23:00)
[2020-09-08 04:38] LABS: INTERNATIONAL RATION (INR) 4.28; PROTHROMBIN TIME 40.6 SEC (11.4-15.4)
[2020-09-08 04:39] LABS: ARTERIAL BLOOD BASE EXCESS 7.7 mmol/L; ARTERIAL BLOOD HCO3 35.7 mmol/L (20-24); ARTERIAL BLOOD O2 SATURATION 89.5 % (94-98); ARTERIAL BLOOD PCO2 66.6 mmHg (35-45); ARTERIAL BLOOD PH 7.35 (7.35-7.45); ARTERIAL BLOOD PO2 61.3 mmHg (80-100); ARTERIAL BLOOD TOTAL CO2 37.7 mmol/L (23-27); FIBRINOGEN 266 mg/dL (209-497); HEMATOCRIT 36.4 % (37.9-51.0); HEMOGLOBIN 11.6 g/dL (13.5-17.0); MEAN CORPUSCULAR HEMOGLOBIN 29.2 pg (27.0-33.4); MEAN CORPUSCULAR HGB CONC 31.9 g/dL (32.0-36.0); MEAN CORPUSCULAR VOLUME 92 fl (80-97); RED BLOOD COUNT 3.98 10^6/uL (4.35-5.55); RED CELL DISTRIBUTION WIDTH 15.2 % (11.5-14.0); WHITE BLOOD COUNT 14.4 10^3/uL (4.0-10.5)
[2020-09-08 04:40] LABS: PARTIAL THROMBOPLASTIN TIME 86.3 SEC (23.5-35.8)
[2020-09-08 04:42] LABS: ARTERIAL BLOOD FIO2 100%
[2020-09-08 04:49] LABS: ANION GAP 7 (5-19); CALCIUM 8.3 mg/dL (8.4-10.2); CARBON DIOXIDE 38 mmol/L (22-30); CHLORIDE 107 mmol/L (98-107); GLUCOSE 94 mg/dL (75-110); PHOSPHORUS 5.8 mg/dL (2.5-4.5); POTASSIUM 4.9 mmol/L (3.6-5.0)
[2020-09-08 05:02] LABS: BLOOD UREA NITROGEN 82 mg/dL (7-20)
[2020-09-08 05:16] LABS: ABSOLUTE LYMPHOCYTES# (MANUAL) 0.7 10^3/uL (0.5-4.7); ABSOLUTE MONOCYTES # (MANUAL) 0.6 10^3/uL (0.1-1.4); BAND NEUTROPHILS % (MANUAL) 1 % (3-5); BASOPHILS % (MANUAL) 0 % (0-2); EOSINOPHILS % (MANUAL) 1 % (0-6); LYMPHOCYTES % (MANUAL) 5 % (13-45); MONOCYTES % (MANUAL) 4 % (3-13); SEGMENTED NEUTROPHILS % (MAN) 89 % (42-78); TOTAL CELLS COUNTED 100
[2020-09-08 05:18] LABS: TOXIC GRANULATION 1+; TOXIC VACUOLATION PRESENT
[2020-09-08 05:19] LABS: ANISOCYTOSIS SLIGHT; OVALOCYTES SLIGHT; PLATELET COMMENT DECREASED; PLATELET COUNT 81 10^3/uL (150-450); POIKILOCYTOSIS SLIGHT; POLYCHROMASIA SLIGHT; SCHISTOCYTES SLIGHT; TEAR DROP CELLS SLIGHT
[2020-09-08 07:27] LABS: D-DIMER > 20.00 ug/mL (0.00-0.50)
[2020-09-08] MEDS: BUDESONIDE NEB 0.25 MG/2 ML AMPUL NEB SCH ×2 (07:48→20:47)
[2020-09-08] MEDS ORDERED: FUROSEMIDE INJ/PF 40 MG/4 ML SDV IV ONE (08:34)
--- NOTE | 2020-09-08 08:42 | RADIOLOGY REPORT (SQ) ---
EXAM DESCRIPTION: CHEST SINGLE VIEW IMAGES COMPLETED DATE/TIME: 09/08/2020 6:06 am REASON FOR STUDY: ETT tube COMPARISON: Multiple chest films since 09/01/2020 EXAM PARAMETERS: NUMBER OF VIEWS: One view. TECHNIQUE: Single frontal radiographic view of the chest acquired. RADIATION DOSE: NA LIMITATIONS: None. FINDINGS: LUNGS AND PLEURA: Unchanged diffuse bilateral alveolar and interstitial infiltrates with a ir bronchograms in the left retrocardiac region. No gross pleural effusion or pneumothorax. MEDIASTINUM AND HILAR STRUCTURES: No masses. Contour normal. HEART AND VASCULAR STRUCTURES: No cardiomegaly BONES: No acute findings. HARDWARE: Endotracheal tube tip 5 cm above the taqueria. Right jugular central line tip over the super ior vena cava. Nasogastric tube tip and side port in the stomach OTHER: No other significant finding. IMPRESSION: No change in diffuse alveolar and interstitial infiltrates Tubes and lines in good positioning TECHNICAL DOCUMENTATION: JOB ID: [id number] 2010 [employer]- All Rights Reserved Reading location - IP/workstation name: [email or web address]
[2020-09-08] MEDS: ASPIRIN 81 MG TABLET, CHEWABLE NG SCH (10:16)
[2020-09-08] MEDS: DEXAMETHASONE SOD PHOSPHATE INJ 4 MG/1 ML VIAL IV SCH (10:17)
[2020-09-08] MEDS: OLOPATADINE HCL 0.1% OPH SOLN 5 ML OU SCH ×2 (10:18→18:01)
[2020-09-08] MEDS: ASCORBIC ACID 500 MG TABLET NG SCH ×2 (10:19→17:43)
[2020-09-08] MEDS: PANTOPRAZOLE SODIUM 40 MG VIAL IV SCH (10:19)
[2020-09-08] MEDS: ZINC SULFATE 220 MG CAPSULE NG SCH (10:20)
[2020-09-08] MEDS: CHOLECALCIFEROL (D3) 400 UNIT TABLET NG SCH (10:36)
[2020-09-08] MEDS: NORMAL SALINE 250 ML with ARGATROBAN 250 MG IV PRN ×2 (12:54)
[2020-09-08 13:40] LABS: BLOOD UREA NITROGEN 86 mg/dL (7-20); CALCIUM 8.1 mg/dL (8.4-10.2); CHLORIDE 107 mmol/L (98-107); GLUCOSE 152 mg/dL (75-110); POTASSIUM 4.7 mmol/L (3.6-5.0)
[2020-09-08 14:38] LABS: ANION GAP 6 (5-19); CARBON DIOXIDE 37 mmol/L (22-30)
--- NOTE | 2020-09-08 15:24 | PDOC CRITICAL CARE PROG REPORT ---
General Date:: 09/08/20 ICU Day:: 7 Ventilator Day:: 7 Hospital Day:: 10 Resuscitation Status: Full Code Events in the past 12 to 24 Hours:: This 80-year-old -[place] male was admitted on 08/30/2020 with COVID-19 pneumonia. He was originally admitted to [facility]. He required BiPAP support and became progressively hypoxemic. He started demonstrating confusion and reported getting tired. He was transferred to the ICU on 09/02/2020, where he was intubated and placed on mechanical ventilatory support. 09/07: On PRVC 26/450/100%/18. ABG this a.m.: 7.39/60/59. Nurse reports patient received a single dose of furosemide 20 mg IV yesterday. mold stripper reports repeat dosing overnight. Portably had decent (approximately 700 mL) diuresis but no significant difference in oxygenation. On propofol for sedation. RASS - 3. 09/08: On pressure control of 26, PI 14+ PEEP, FiO2 100%, PEEP 16. ABG this a.m.: 7.35/67/61. On propofol/fentanyl for sedation. Right IJ CVC placed yesterday. CVP 10 after diuresis yesterday. Diuretic therapy was withheld overnight. CVP now 1415. Creatinine 1.29, slightly increased from yesterday. On Glucerna. Also on insulin infusion. Glucose now under control. On remdesi vir/Decadron for COVID-19 pneumonia. WBC count 14.4. Switched from Lovenox to argatroban yesterday. Platelets 81 today. Heparin-induced PF4 antibody test sent this morning. Review of systems relevant to events:: Pulmonary Reason for ICU Addmission:: Now intubated. Prolonged ventilator course. - Medications: Medications reviewed and adjusted accordingly: Yes Sedation:: Propofol/fentanyl. Physical Exam Vital Signs: Temp Pulse Resp BP Pulse Ox 98.8 F 108 H 26 H 90/64 L 90 L 09/08/20 06:32 09/08/20 07:48 09/08/20 07:48 09/08/20 06:32 09/08/20 07:48 Intake & Output 09/07/20 09/08/20 09/09/20 06:59 06:59 06:59 Intake Total 1246 1330 Output Total 1760 1270 Balance -514 60 Weight 107.3 kg 104.3 kg Weight/Height Weight 104.3 kg Height 1.63 m General appearance: PRESENT: no acute distress, well-developed, well-nourished Head exam: PRESENT: atraumatic, normocephalic Eye exam: PRESENT: conjunctiva pink, EOMI, PERRLA. ABSENT: scleral icterus Mouth exam: PRESENT: moist, tongue midline Neck exam: ABSENT: carotid bruit, JVD, lymphadenopathy, thyromegaly Respiratory exam: PRESENT: clear to auscultation preston. ABSENT: rales, rhonchi, wheezes Cardiovascular exam: PRESENT: RRR, tachycardia. ABSENT: diastolic murmur, rubs, systolic murmur Pulses: PRESENT: normal dorsalis pedis pul GI/Abdominal exam: PRESENT: normal bowel sounds, soft. ABSENT: distended, guarding, mass, organolmegaly, rebound, tenderness Extremities exam: PRESENT: full ROM. ABSENT: calf tenderness, clubbing, pedal edema Neurological exam: PRESENT: altered, other - Facial symmetry. Spontaneous respirations intact. No Babinski.. ABSENT: reflexes normal Tubes/Lines: PRESENT: Endotracheal Tube, Central Line - Right IJ Laboratory/Radiographs Laboratory Results: 09/08/20 04:10 09/08/20 04:10 09/07/20 09/07/20 09/07/20 12:40 15:55 16:20 WBC RBC Hgb Hct MCV MCH MCHC RDW Plt Count Seg Neutrophils % Carbonic Acid 2.31 H 2.15 H HCO3/H2CO3 Ratio 16:1 15:1 ABG pH 7.30 L 7.30 L ABG pCO2 76.9 H* 71.3 H* ABG pO2 73.6 L 78.1 L ABG HCO3 37.1 H 34.2 H ABG O2 Saturation 92.6 L 93.8 L ABG Base Excess 7.4 5.4 FiO2 100% 100% Sodium 151.7 H Potassium 4.6 Chloride 107 Carbon Dioxide 39 H Anion Gap 6 BUN 63 H Creatinine 1.25 Est GFR ( Amer) > 60 Glucose 137 H Calcium 8.6 Ionized Calcium Sharon Phosphorus Magnesium 09/08/20 09/08/20 09/08/20 04:10 04:10 04:10 WBC 14.4 H RBC 3.98 L Hgb 11.6 L Hct 36.4 L MCV 92 MCH 29.2 MCHC 31.9 L RDW 15.2 H Plt Count 81 L Seg Neutrophils % Not Reportable Carbonic Acid 2.00 H HCO3/H2CO3 Ratio 17:1 ABG pH 7.35 ABG pCO2 66.6 H ABG pO2 61.3 L ABG HCO3 35.7 H ABG O2 Saturation 89.5 L ABG Base Excess 7.7 FiO2 100% Sodium 152.1 H Potassium 4.9 Chloride 107 Carbon Dioxide 38 H Anion Gap 7 BUN 82 H Creatinine 1.29 H Est GFR ( Amer) > 60 Glucose 94 Calcium 8.3 L Ionized Calcium Sharon 1.16 Phosphorus 5.8 H Magnesium 3.0 H 08/30/20 08/31/20 08/31/20 11:17 19:21 23:00 Troponin I 0.013 < 0.012 < 0.012 NT-Pro-B Natriuret Pep 78 Impressions: Chest/Abdomen CTA 08/30/20 00:00 IMPRESSION: 1. No evidence for acute pulmonary emboli. 2. Fairly extensive areas of consolidation and some scattered ground-glass opacities in the periphery of the lungs. Differential diagnosis includes pneumonia, with COVId-19 pneumonia included in the differential. Correlation suggested. 2. A hypoattenuated splenic lesion. Calcified splenic granuloma also noted. Further evaluation with ultrasound examination suggested. All labs, radiographs, diagnostic studies and EKGs were personally reviewed: Yes In addition, reports of radiographic and diagnostic studies were read: Yes Assessment and Plan - Diagnosis (1) Acute hypoxemic respiratory failure due to COVID-19 Is this a current diagnosis for this admission?: Yes Plan: * Titrate vent settings based on ABG results. * Wean PEEP as tolerated. * Continue remdesivir. * Continue Decadron. * Continue propofol/fentanyl. Titrate for RASS -2. (2) Morbid obesity with BMI of 40.0-44.9, adult Is this a current diagnosis for this admission?: Yes (3) Tachycardia Is this a current diagnosis for this admission?: Yes Plan: * Perhaps slightly improved with increase in dosing interval of bronchodilator therapy. It is unclear whether this is a physiologic tachycardia that could be related to volume status or suboptimal sedation while on mechanical ventilatory support. (4) Thrombocytopenia Is this a current diagnosis for this admission?: Yes Plan: * Monitor platelets. * Continue argatroban. 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 * Off Lantus. Continue insulin infusion. * Accu-Cheks every 1 hour. Critical Time Critical Time (minutes): 60 Level of Care: ICU -: 1. The care of a critical patient is a dynamic process. This note is a patient portal representative synopsis but static in nature. The timeframe for treatments given in order is not necessarily the actual time these treatments may have been done. 2. This patient requires critical care secondary to ongoing requirements for therapy not offered or safe outside the critical care environment. Transfer to a lower level of care will result in altered life or limb morbidity and mortality. 3. Multidisciplinary rounds completed. 4. ABCDE bundle addressed.
[2020-09-08] MEDS: ALBUTEROL SULFATE 0.083% NEB 2.5 MG/3 ML AMPUL NEB PRN (20:48)
[2020-09-08] MEDS: NORMAL SALINE 100 ML with INSULIN REGULAR, HUMAN 100 UNIT IV PRN ×2 (23:13)
[2020-09-09 03:09] LABS: ARTERIAL BLOOD BASE EXCESS 6.5 mmol/L; ARTERIAL BLOOD H2CO3 2.99 mmol/L (1.05-1.35); ARTERIAL BLOOD HCO3 38.2 mmol/L (20-24); ARTERIAL BLOOD O2 SATURATION 93.1 % (94-98); ARTERIAL BLOOD PO2 83.7 mmHg (80-100); ARTERIAL BLOOD TOTAL CO2 41.2 mmol/L (23-27)
[2020-09-09 03:20] LABS: ARTERIAL BLOOD FIO2 100%; ARTERIAL BLOOD PCO2 99.2 mmHg (35-45)
[2020-09-09] MEDS ORDERED: FUROSEMIDE INJ/PF 20 MG/2 ML SDV IV ONE (03:59)
[2020-09-09] MEDS ORDERED: FUROSEMIDE INJ/PF 40 MG/4 ML SDV ONE (04:01)
[2020-09-09 05:05] LABS: HEMOGLOBIN 12.1 g/dL (13.5-17.0); MEAN CORPUSCULAR HEMOGLOBIN 30.1 pg (27.0-33.4); MEAN CORPUSCULAR HGB CONC 32.6 g/dL (32.0-36.0); MEAN CORPUSCULAR VOLUME 93 fl (80-97); PLATELET COUNT 112 10^3/uL (150-450); RED CELL DISTRIBUTION WIDTH 15.8 % (11.5-14.0); WHITE BLOOD COUNT 18.6 10^3/uL (4.0-10.5)
[2020-09-09 05:14] LABS: BLOOD UREA NITROGEN 101 mg/dL (7-20); CALCIUM 8.4 mg/dL (8.4-10.2); CHLORIDE 107 mmol/L (98-107); GLUCOSE 147 mg/dL (75-110); POTASSIUM 5.5 mmol/L (3.6-5.0)
[2020-09-09 05:21] LABS: PREALBUMIN 16.4 mg/dL (17.6-36.0)
[2020-09-09 05:32] LABS: ABSOLUTE LYMPHOCYTES# (MANUAL) 1.1 10^3/uL (0.5-4.7); ABSOLUTE MONOCYTES # (MANUAL) 0.4 10^3/uL (0.1-1.4); BAND NEUTROPHILS % (MANUAL) 3 % (3-5); BASOPHILS % (MANUAL) 0 % (0-2); EOSINOPHILS % (MANUAL) 0 % (0-6); LYMPHOCYTES % (MANUAL) 6 % (13-45); MONOCYTES % (MANUAL) 2 % (3-13); SEGMENTED NEUTROPHILS % (MAN) 84 % (42-78); TOTAL CELLS COUNTED 100
[2020-09-09 05:35] LABS: ANISOCYTOSIS 1+; PLATELET COMMENT ADEQUATE; POIKILOCYTOSIS SLIGHT; POLYCHROMASIA SLIGHT
[2020-09-09 05:38] LABS: METAMYELOCYTES % (MANUAL) 5 % (0-1)
[2020-09-09 05:39] LABS: ANION GAP 7 (5-19)
[2020-09-09 05:46] LABS: CARBON DIOXIDE 37 mmol/L (22-30)
--- NOTE | 2020-09-09 05:58 | RADIOLOGY REPORT (SQ) ---
EXAM: XR Chest, 1 View EXAM DATE/TIME: 09/09/2020 4:47 am CLINICAL HISTORY: The patient is 80 years old and is Male; abnormal ABG TECHNIQUE: Frontal view of the chest. COMPARISON: Chest radiograph from 09/08/2020 FINDINGS: LUNGS: Moderate ill-defined opacities again visualized in the lungs, right more than left. This is not significantly changed. PLEURAL SPACE: Small bilateral pleural effusions. No obvious pneumothorax. HEART: No significant enlargement of the cardiac silhouette. MEDIASTINUM: Unremarkable. BONES/JOINTS: The bones are unchanged. TUBES, LINES AND DEVICES: Right internal jugular central venous catheter terminates at the cavoatrial junction. Enteric tube terminates in the proximal stomach. Endotracheal tube terminates 4 cm above the taqueria. IMPRESSION: 1. Small bilateral pleural effusions. 2. Moderate ill-defined opacities again visualized in the lungs, right more than left. This is not significantly changed.
[2020-09-09] MEDS: PROPOFOL 1,000 MG/100 ML INFUS..BTL IV PRN ×4 (06:08→21:30)
[2020-09-09 06:49] LABS: ARTERIAL BLOOD BASE EXCESS 5.4 mmol/L; ARTERIAL BLOOD FIO2 100%; ARTERIAL BLOOD H2CO3 3.71 mmol/L (1.05-1.35); ARTERIAL BLOOD O2 SATURATION 93.5 % (94-98); ARTERIAL BLOOD PO2 93.9 mmHg (80-100); ARTERIAL BLOOD TOTAL CO2 42.8 mmol/L (23-27)
[2020-09-09 06:50] LABS: ARTERIAL BLOOD PCO2 123.3 mmHg (35-45); ARTERIAL BLOOD PH 7.12 (7.35-7.45)
[2020-09-09] MEDS ORDERED: MIDAZOLAM 2 MG/2 ML INJ ONE (07:41)
[2020-09-09] MEDS: BUDESONIDE NEB 0.25 MG/2 ML AMPUL NEB SCH ×2 (07:47→19:48)
[2020-09-09 08:14] LABS: ARTERIAL BLOOD BASE EXCESS 6.9 mmol/L; ARTERIAL BLOOD H2CO3 4.64 mmol/L (1.05-1.35); ARTERIAL BLOOD HCO3 42.2 mmol/L (20-24); ARTERIAL BLOOD O2 SATURATION 93.3 % (94-98); ARTERIAL BLOOD PO2 99.8 mmHg (80-100); ARTERIAL BLOOD TOTAL CO2 46.9 mmol/L (23-27)
[2020-09-09 08:33] LABS: ARTERIAL BLOOD FIO2 100%
[2020-09-09 08:34] LABS: ARTERIAL BLOOD PCO2 154.2 mmHg (35-45); ARTERIAL BLOOD PH 7.06 (7.35-7.45)
[2020-09-09] MEDS ORDERED: NORMAL SALINE 500 ML IV ONE (08:45)
[2020-09-09] MEDS ORDERED: NOREPINEPHRINE BITARTRATE INJ/PF 4 MG/4 ML SDV IV ONE (08:45)
[2020-09-09] MEDS ORDERED: MIDAZOLAM 2 MG/2 ML INJ IV ONE (08:55)
[2020-09-09 09:15] LABS: ARTERIAL BLOOD BASE EXCESS 4.1 mmol/L; ARTERIAL BLOOD H2CO3 2.56 mmol/L (1.05-1.35); ARTERIAL BLOOD PH 7.22 (7.35-7.45); ARTERIAL BLOOD TOTAL CO2 36.7 mmol/L (23-27)
[2020-09-09 09:15] LABS: ARTERIAL BLOOD BASE EXCESS 0.8 mmol/L; ARTERIAL BLOOD FIO2 100%; ARTERIAL BLOOD H2CO3 1.62 mmol/L (1.05-1.35); ARTERIAL BLOOD HCO3 27.5 mmol/L (20-24); ARTERIAL BLOOD O2 SATURATION 76.1 % (94-98); ARTERIAL BLOOD PCO2 53.7 mmHg (35-45); ARTERIAL BLOOD PH 7.33 (7.35-7.45); ARTERIAL BLOOD PO2 44.3 mmHg (80-100); ARTERIAL BLOOD TOTAL CO2 29.1 mmol/L (23-27)
[2020-09-09 09:16] LABS: ARTERIAL BLOOD PCO2 84.9 mmHg (35-45); ARTERIAL BLOOD PO2 32.7 mmHg (80-100)
[2020-09-09 09:17] LABS: ARTERIAL BLOOD FIO2 100%
[2020-09-09] MEDS: PANTOPRAZOLE SODIUM 40 MG VIAL IV SCH (10:36)
[2020-09-09] MEDS: ASPIRIN 81 MG TABLET, CHEWABLE NG SCH (10:36)
[2020-09-09] MEDS: DEXAMETHASONE SOD PHOSPHATE INJ 4 MG/1 ML VIAL IV SCH (10:36)
[2020-09-09] MEDS: ZINC SULFATE 220 MG CAPSULE NG SCH (10:36)
[2020-09-09] MEDS: ASCORBIC ACID 500 MG TABLET NG SCH ×2 (10:36→18:28)
[2020-09-09] MEDS: OLOPATADINE HCL 0.1% OPH SOLN 5 ML OU SCH ×2 (10:37→18:27)
[2020-09-09] MEDS: FENTANYL CITRATE/PF 600 MCG/60 ML BAG IV PRN ×2 (10:37→18:28)
[2020-09-09] MEDS: CHOLECALCIFEROL (D3) 400 UNIT TABLET NG SCH (10:37)
[2020-09-09 11:17] LABS: ARTERIAL BLOOD BASE EXCESS 5.7 mmol/L; ARTERIAL BLOOD H2CO3 1.38 mmol/L (1.05-1.35); ARTERIAL BLOOD HCO3 30.6 mmol/L (20-24); ARTERIAL BLOOD O2 SATURATION 87.8 % (94-98); ARTERIAL BLOOD PCO2 45.7 mmHg (35-45); ARTERIAL BLOOD PH 7.44 (7.35-7.45); ARTERIAL BLOOD PO2 51.8 mmHg (80-100)
[2020-09-09 11:18] LABS: ARTERIAL BLOOD FIO2 100%
[2020-09-09 11:42] LABS: TROPONIN I 0.071 ng/mL
[2020-09-09 13:31] LABS: PATH REVIEW PATHOLOGIST REVIEWED
[2020-09-09] MEDS: DEXTROSE 5%-WATER 250 ML with NOREPINEPHRINE BITARTRATE 4 MG IV PRN ×4 (13:40→21:45)
[2020-09-09] MEDS: 1/2 NORMAL SALINE 1,000 ML IV PRN ×2 (14:22→23:07)
--- NOTE | 2020-09-09 14:50 | EKG REPORT ---
SEVERITY:- BORDERLINE ECG - SINUS TACHYCARDIA BORDERLINE T ABNORMALITIES, ANT-LAT LEADS : Confirmed by: Luca Treviño MD 09-Sep-2020 14:49:48
--- NOTE | 2020-09-09 15:06 | RADIOLOGY REPORT (SQ) ---
EXAM DESCRIPTION: CHEST SINGLE VIEW IMAGES COMPLETED DATE/TIME: 09/09/2020 2:54 pm REASON FOR STUDY: REPIRATORY DISTRESS COMPARISON: Earlier the same day. NUMBER OF VIEWS: One view. TECHNIQUE: Single frontal radiographic image of the chest acquired. LIMITATIONS: None. FINDINGS: LUNGS AND PLEURA: Stable appearance. MEDIASTINUM AND HILAR STRUCTURES: Stable heart size and mediastinal structures. HEART AND VASCULAR STRUCTURES: Stable appearance. SUPPORT DEVICES: Appropriate location without change. BONES: No acute findings. OTHER: No other significant finding. IMPRESSION: STABLE APPEARANCE OF THE CHEST. SUPPORT DEVICES UNCHANGED. TECHNICAL DOCUMENTATION: JOB ID: [id number] 2010 [employer]- All Rights Reserved Reading location - IP/workstation name: [email or web address]
[2020-09-09 17:45] LABS: ARTERIAL BLOOD BASE EXCESS 7.5 mmol/L; ARTERIAL BLOOD H2CO3 1.58 mmol/L (1.05-1.35); ARTERIAL BLOOD HCO3 33.2 mmol/L (20-24); ARTERIAL BLOOD PCO2 52.6 mmHg (35-45); ARTERIAL BLOOD PH 7.42 (7.35-7.45); ARTERIAL BLOOD PO2 50.9 mmHg (80-100); ARTERIAL BLOOD TOTAL CO2 34.8 mmol/L (23-27)
[2020-09-09 18:03] LABS: ARTERIAL BLOOD FIO2 100
--- NOTE | 2020-09-09 18:46 | PDOC CRITICAL CARE PROG REPORT ---
General Date:: 09/09/20 ICU Day:: 8 Ventilator Day:: 8 Hospital Day:: 11 Resuscitation Status: Full Code Events in the past 12 to 24 Hours:: This 80-year-old -[place] male was admitted on 08/30/2020 with COVID-19 pneumonia. He was originally admitted to [facility]. He required BiPAP support and became progressively hypoxemic. He started demonstrating confusion and reported getting tired. He was transferred to the ICU on 09/02/2020, where he was intubated and placed on mechanical ventilatory support. 09/07: On PRVC 26/450/100%/18. ABG this a.m.: 7.39/60/59. Nurse reports patient received a single dose of furosemide 20 mg IV yesterday. shift foreman reports repeat dosing overnight. Portably had decent (approximately 700 mL) diuresis but no significant difference in oxygenation. On propofol for sedation. RASS - 3. 09/08: On pressure control of 26, PI 14+ PEEP, FiO2 100%, PEEP 16. ABG this a.m.: 7.35/67/61. On propofol/fentanyl for sedation. Right IJ CVC placed yesterday. CVP 10 after diuresis yesterday. Diuretic therapy was withheld overnight. CVP now 1415. Creatinine 1.29, slightly increased from yesterday. On Glucerna. Also on insulin infusion. Glucose now under control. On remdesi vir/Decadron for COVID-19 pneumonia. WBC count 14.4. Switched from Lovenox to argatroban yesterday. Platelets 81 today. Heparin-induced PF4 antibody test sent this morning. 09/09: Overnight coverage reports that the patient started demonstrating hemodynamic instability (increasing tachycardia, followed by hypotension). ABG was obtained and pH was found to be 7.07.1 with PCO2 100+. Vent settings were changed: Pressure control f 30, PI 16+ PEEP, FiO2 100%, PEEP 16. No improvement was observed. Despite deterioration in ventilation, the patient maintained good oxygenation throughout the night. CVP this morning 89. SvO2 49%. Vent settings were adjusted: Pressure control f 30, PI 21+ PEEP, FiO2 100%, PEEP of 12. Tidal volumes improved [place] 6 [address]. Normal saline bolus 1 L resulted in improvement in hemodynamic stability. Follow-up ABG demonstrates improvement in pH and PCO2. WBC 18.6 this morning, on dexamethasone. Platelets have increased to 112. Sodium 151, potassium 5.5. Creatinine 1.6. Review of systems relevant to events:: Pulmonary Reason for ICU Addmission:: Now intubated. Prolonged ventilator course. - Medications: Medications reviewed and adjusted accordingly: Yes Vasopressors:: Norepinephrine Sedation:: Propofol/fentanyl. Physical Exam Vital Signs: Temp Pulse Resp BP Pulse Ox 99.7 F 134 H 27 H 78/67 L 93 09/09/20 10:17 09/09/20 09:58 09/09/20 10:17 09/09/20 10:17 09/09/20 11:42 Intake & Output 09/08/20 09/09/20 09/10/20 06:59 06:59 06:59 Intake Total 1330 2397 83 Output Total 1270 1835 Balance 60 562 83 Weight 104.3 kg 105.3 kg Weight/Height Weight 105.3 kg Height 1.63 m General appearance: PRESENT: no acute distress, well-developed, well-nourished Head exam: PRESENT: atraumatic, normocephalic Eye exam: PRESENT: conjunctiva pink, EOMI, PERRLA. ABSENT: scleral icterus Mouth exam: PRESENT: moist, tongue midline Respiratory exam: PRESENT: clear to auscultation preston, symmetrical, tachypnea. ABSENT: rales, rhonchi, wheezes Cardiovascular exam: PRESENT: RRR, tachycardia. ABSENT: diastolic murmur, rubs, systolic murmur Pulses: PRESENT: normal dorsalis pedis pul GI/Abdominal exam: PRESENT: normal bowel sounds, soft. ABSENT: distended, guarding, mass, organolmegaly, rebound, tenderness Extremities exam: PRESENT: full ROM, pedal edema. ABSENT: calf tenderness, clubbing Musculoskeletal exam: PRESENT: normal inspection. ABSENT: deformity Neurological exam: PRESENT: altered, CN II-XII grossly intact Psychiatric exam: ABSENT: agitated, anxious Skin exam: PRESENT: dry, intact, warm. ABSENT: cyanosis, rash Tubes/Lines: PRESENT: Endotracheal Tube, Central Line - Right IJ, Other - Orogastric Laboratory/Radiographs Laboratory Results: 09/09/20 04:10 09/09/20 04:10 09/08/20 09/09/20 09/09/20 12:50 02:40 04:10 WBC RBC Hgb Hct MCV MCH MCHC RDW Plt Count Seg Neutrophils % Carbonic Acid 2.99 H HCO3/H2CO3 Ratio 12:1 ABG pH 7.20 L* ABG pCO2 99.2 H* ABG pO2 83.7 ABG HCO3 38.2 H ABG O2 Saturation 93.1 L ABG Base Excess 6.5 FiO2 100% Sodium 150.2 H 151.3 H Potassium 4.7 5.5 H Chloride 107 107 Carbon Dioxide 37 H 37 H Anion Gap 6 7 BUN 86 H 101 H Creatinine 1.50 H 1.59 H Est GFR ( Amer) 55 L 51 L Glucose 152 H 147 H Calcium 8.1 L 8.4 Phosphorus 8.0 H D Magnesium 3.8 H Prealbumin 16.4 L 09/09/20 09/09/20 09/09/20 04:10 06:15 07:58 WBC 18.6 H RBC 4.00 L Hgb 12.1 L Hct 37.0 L MCV 93 MCH 30.1 MCHC 32.6 RDW 15.8 H Plt Count 112 L Seg Neutrophils % Not Reportable Carbonic Acid 3.71 H 4.64 H HCO3/H2CO3 Ratio 10:1 9:1 ABG pH 7.12 L* 7.06 L* ABG pCO2 123.3 H* 154.2 H* ABG pO2 93.9 99.8 ABG HCO3 39.0 H 42.2 H ABG O2 Saturation 93.5 L 93.3 L ABG Base Excess 5.4 6.9 FiO2 100% 100% Sodium Potassium Chloride Carbon Dioxide Anion Gap BUN Creatinine Est GFR ( Amer) Glucose Calcium Phosphorus Magnesium Prealbumin 09/09/20 09/09/20 09/09/20 08:42 09:01 11:00 WBC RBC Hgb Hct MCV MCH MCHC RDW Plt Count Seg Neutrophils % Carbonic Acid 2.56 H 1.62 H 1.38 H HCO3/H2CO3 Ratio 13:1 16:1 22:1 ABG pH 7.22 L 7.33 L 7.44 ABG pCO2 84.9 H* 53.7 H 45.7 H ABG pO2 32.7 L* 44.3 L 51.8 L ABG HCO3 34.0 H 27.5 H 30.6 H ABG O2 Saturation 49.0 L 76.1 L 87.8 L ABG Base Excess 4.1 0.8 5.7 FiO2 100% 100% 100% Sodium Potassium Chloride Carbon Dioxide Anion Gap BUN Creatinine Est GFR ( Amer) Glucose Calcium Phosphorus Magnesium Prealbumin 08/30/20 08/31/20 08/31/20 11:17 19:21 23:00 Troponin I 0.013 < 0.012 < 0.012 NT-Pro-B Natriuret Pep 78 09/09/20 09/09/20 04:10 09:42 Troponin I 0.071 NT-Pro-B Natriuret Pep 158 261 Impressions: Chest/Abdomen CTA 08/30/20 00:00 IMPRESSION: 1. No evidence for acute pulmonary emboli. 2. Fairly extensive areas of consolidation and some scattered ground-glass opacities in the periphery of the lungs. Differential diagnosis includes pneumonia, with COVId-19 pneumonia included in the differential. Correlation suggested. 2. A hypoattenuated splenic lesion. Calcified splenic granuloma also noted. Further evaluation with ultrasound examination suggested. Chest X-Ray 09/09/20 00:00 IMPRESSION: 1. Small bilateral pleural effusions. 2. Moderate ill-defined opacities again visualized in the lungs, right more than left. This is not significantly changed. All labs, radiographs, diagnostic studies and EKGs were personally reviewed: Yes In addition, reports of radiographic and diagnostic studies were read: Yes Assessment and Plan - Diagnosis (1) Acute hypoxemic respiratory failure due to COVID-19 Is this a current diagnosis for this admission?: Yes Plan: * Titrate vent settings based on ABG results. * Wean Pi as tolerated. * Completed remdesivir. * Continue Decadron. * Continue propofol/fentanyl. Titrate for RASS -2. (2) Morbid obesity with BMI of 40.0-44.9, adult Is this a current diagnosis for this admission?: Yes (3) Tachycardia Is this a current diagnosis for this admission?: Yes Plan: * Appears to be improving again with correction of his ABG pH. * Check cardiac enzymes. * 12-lead EKG (4) Thrombocytopenia Is this a current diagnosis for this admission?: Yes Plan: * Improving. * Continue to monitor platelets. * Continue argatroban. (5) Type 2 diabetes mellitus Qualifiers: Diabetes mellitus senior living insulin use: without termite technician use Diabetes mellitus complication status: with hyperglycemia Qualified Code(s): E11.65 - Type 2 diabetes mellitus with hyperglycemia Is this a current diagnosis for this admission?: Yes Plan: * Continue Glucerna. * Off Lantus. Continue insulin infusion. * Accu-Cheks every 1 hour. Critical Time Critical Time (minutes): 120 Level of Care: ICU -: 1. The care of a critical patient is a dynamic process. This note is a medical customer service representative synopsis but static in nature. The timeframe for treatments given in order is not necessarily the actual time these treatments may have been done. 2. This patient requires critical care secondary to ongoing requirements for therapy not offered or safe outside the critical care environment. Transfer to a lower level of care will result in altered life or limb morbidity and mortality. 3. Multidisciplinary rounds completed. 4. ABCDE bundle addressed.
[2020-09-09] MEDS: ALBUTEROL SULFATE 0.083% NEB 2.5 MG/3 ML AMPUL NEB PRN (19:48)
[2020-09-09] MEDS: NORMAL SALINE 250 ML with ARGATROBAN 250 MG IV PRN ×2 (21:30)
[2020-09-10] MEDS: FENTANYL CITRATE/PF 600 MCG/60 ML BAG IV PRN ×5 (00:15→20:15)
[2020-09-10] MEDS: PROPOFOL 1,000 MG/100 ML INFUS..BTL IV PRN ×3 (02:29→12:37)
[2020-09-10 05:29] LABS: ARTERIAL BLOOD BASE EXCESS -0.9 mmol/L; ARTERIAL BLOOD H2CO3 2.62 mmol/L (1.05-1.35); ARTERIAL BLOOD HCO3 29.7 mmol/L (20-24); ARTERIAL BLOOD O2 SATURATION 75.2 % (94-98); ARTERIAL BLOOD PO2 52.7 mmHg (80-100); ARTERIAL BLOOD TOTAL CO2 32.4 mmol/L (23-27)
[2020-09-10 05:35] LABS: HEMATOCRIT 32.8 % (37.9-51.0); HEMOGLOBIN 10.5 g/dL (13.5-17.0); MEAN CORPUSCULAR HEMOGLOBIN 29.9 pg (27.0-33.4); MEAN CORPUSCULAR HGB CONC 32.1 g/dL (32.0-36.0); MEAN CORPUSCULAR VOLUME 93 fl (80-97); PLATELET COUNT 111 10^3/uL (150-450); RED BLOOD COUNT 3.53 10^6/uL (4.35-5.55); RED CELL DISTRIBUTION WIDTH 15.4 % (11.5-14.0); WHITE BLOOD COUNT 21.6 10^3/uL (4.0-10.5)
[2020-09-10 05:45] LABS: ARTERIAL BLOOD FIO2 100%; ARTERIAL BLOOD PH 7.15 (7.35-7.45)
[2020-09-10 05:48] LABS: ANION GAP 5 (5-19); BLOOD UREA NITROGEN 99 mg/dL (7-20); CALCIUM 7.6 mg/dL (8.4-10.2); CARBON DIOXIDE 35 mmol/L (22-30); CHLORIDE 105 mmol/L (98-107); GLUCOSE 164 mg/dL (75-110); PHOSPHORUS 6.5 mg/dL (2.5-4.5); POTASSIUM 4.8 mmol/L (3.6-5.0)
[2020-09-10 06:34] LABS: ABSOLUTE LYMPHOCYTES# (MANUAL) 0.4 10^3/uL (0.5-4.7); ABSOLUTE MONOCYTES # (MANUAL) 1.5 10^3/uL (0.1-1.4); BASOPHILS % (MANUAL) 0 % (0-2); EOSINOPHILS % (MANUAL) 2 % (0-6); LYMPHOCYTES % (MANUAL) 2 % (13-45); MONOCYTES % (MANUAL) 7 % (3-13); SEGMENTED NEUTROPHILS % (MAN) 89 % (42-78); TOTAL CELLS COUNTED 100
[2020-09-10 06:36] LABS: ANISOCYTOSIS SLIGHT; OVALOCYTES SLIGHT; PLATELET COMMENT DECREASED; POLYCHROMASIA SLIGHT; TEAR DROP CELLS SLIGHT
[2020-09-10] MEDS: DEXTROSE 5%-WATER 250 ML with NOREPINEPHRINE BITARTRATE 4 MG IV PRN ×6 (06:46→23:45)
[2020-09-10] MEDS: NORMAL SALINE 250 ML with ARGATROBAN 250 MG IV PRN ×2 (06:50)
[2020-09-10] MEDS: 1/2 NORMAL SALINE 1,000 ML IV PRN (06:50)
[2020-09-10] MEDS: BUDESONIDE NEB 0.25 MG/2 ML AMPUL NEB SCH ×2 (07:54→20:44)
[2020-09-10 08:33] LABS: ARTERIAL BLOOD BASE EXCESS 4.8 mmol/L; ARTERIAL BLOOD H2CO3 1.85 mmol/L (1.05-1.35); ARTERIAL BLOOD HCO3 31.9 mmol/L (20-24); ARTERIAL BLOOD O2 SATURATION 85.2 % (94-98); ARTERIAL BLOOD PCO2 61.5 mmHg (35-45); ARTERIAL BLOOD PH 7.33 (7.35-7.45); ARTERIAL BLOOD PO2 54.2 mmHg (80-100); ARTERIAL BLOOD TOTAL CO2 33.8 mmol/L (23-27)
[2020-09-10 08:37] LABS: ARTERIAL BLOOD FIO2 100%
--- NOTE | 2020-09-10 09:35 | RADIOLOGY REPORT (SQ) ---
EXAM DESCRIPTION: CHEST SINGLE VIEW IMAGES COMPLETED DATE/TIME: 09/10/2020 5:59 am REASON FOR STUDY: ETT tube COMPARISON: 09/09/2020 EXAM PARAMETERS: NUMBER OF VIEWS: One view TECHNIQUE: Single frontal radiograph of the chest. RADIATION DOSE: N/A LIMITATIONS: None. FINDINGS: TEMPORARY SUPPORT DEVICES:ETT in expected location. NG tube courses below the sudeep-diaphr agm in to the stomach. Central venous access catheter tip is in expected location. LUNGS AND PLEURA: No improvement in the diffuse parenchymal opacities throughout both lungs. Small b ilateral pleural effusions. MEDIASTINUM AND HILAR STRUCTURES: No masses. Contour normal. HEART AND VASCULAR STRUCTURES: Heart enlarged. BONES: No acute findings. OTHER: No other significant finding. IMPRESSION: No change in the diffuse parenchymal opacities most likely pneumonia. An element of con gestive failure cannot be excluded. SUPPORT DEVICE(S) IN EXPECTED LOCATIONS. TECHNICAL DOCUMENTATION: JOB ID: [id number] 2010 [employer]- All Rights Reserved Reading location - IP/workstation name: [email or web address]
[2020-09-10 10:16] LABS: C DIFFICILE GDH NEGATIVE (NEGATIVE)
[2020-09-10] MEDS: DEXAMETHASONE SOD PHOSPHATE INJ 4 MG/1 ML VIAL IV SCH (11:05)
[2020-09-10] MEDS: ZINC SULFATE 220 MG CAPSULE NG SCH (11:20)
[2020-09-10] MEDS: CHOLECALCIFEROL (D3) 400 UNIT TABLET NG SCH (11:20)
[2020-09-10] MEDS: ASPIRIN 81 MG TABLET, CHEWABLE NG SCH (11:20)
[2020-09-10] MEDS: ASCORBIC ACID 500 MG TABLET NG SCH ×2 (11:20→17:18)
[2020-09-10] MEDS: OLOPATADINE HCL 0.1% OPH SOLN 5 ML OU SCH ×2 (11:21→17:18)
[2020-09-10] MEDS ORDERED: FUROSEMIDE INJ/PF 40 MG/4 ML SDV IV ONE (11:30)
[2020-09-10 11:34] LABS: ARTERIAL BLOOD BASE EXCESS 6.6 mmol/L; ARTERIAL BLOOD HCO3 33.4 mmol/L (20-24); ARTERIAL BLOOD O2 SATURATION 82.5 % (94-98); ARTERIAL BLOOD PCO2 59.9 mmHg (35-45); ARTERIAL BLOOD PH 7.36 (7.35-7.45); ARTERIAL BLOOD PO2 49.3 mmHg (80-100); ARTERIAL BLOOD TOTAL CO2 35.2 mmol/L (23-27)
[2020-09-10 11:36] LABS: ARTERIAL BLOOD FIO2 100
--- NOTE | 2020-09-10 17:30 | PDOC CRITICAL CARE PROG REPORT ---
General Date:: 09/10/20 ICU Day:: 9 Ventilator Day:: 9 Hospital Day:: 12 Resuscitation Status: Full Code Events in the past 12 to 24 Hours:: This 80-year-old -[place] male was admitted on 08/30/2020 with COVID-19 pneumonia. He was originally admitted to [facility]. He required BiPAP support and became progressively hypoxemic. He started demonstrating confusion and reported getting tired. He was transferred to the ICU on 09/02/2020, where he was intubated and placed on mechanical ventilatory support. 09/07: On PRVC 26/450/100%/18. ABG this a.m.: 7.39/60/59. Nurse reports patient received a single dose of furosemide 20 mg IV yesterday. production supervisor off shift reports repeat dosing overnight. Portably had decent (approximately 700 mL) diuresis but no significant difference in oxygenation. On propofol for sedation. RASS - 3. 09/08: On pressure control of 26, PI 14+ PEEP, FiO2 100%, PEEP 16. ABG this a.m.: 7.35/67/61. On propofol/fentanyl for sedation. Right IJ CVC placed yesterday. CVP 10 after diuresis yesterday. Diuretic therapy was withheld overnight. CVP now 1415. Creatinine 1.29, slightly increased from yesterday. On Glucerna. Also on insulin infusion. Glucose now under control. On remdesi vir/Decadron for COVID-19 pneumonia. WBC count 14.4. Switched from Lovenox to argatroban yesterday. Platelets 81 today. Heparin-induced PF4 antibody test sent this morning. 09/09: Overnight coverage reports that the patient started demonstrating hemodynamic instability (increasing tachycardia, followed by hypotension). ABG was obtained and pH was found to be 7.07.1 with PCO2 100+. Vent settings were changed: Pressure control f 30, PI 16+ PEEP, FiO2 100%, PEEP 16. No improvement was observed. Despite deterioration in ventilation, the patient maintained good oxygenation throughout the night. CVP this morning 89. SvO2 49%. Vent settings were adjusted: Pressure control f 30, PI 21+ PEEP, FiO2 100%, PEEP of 12. Tidal volumes improved to [id number]. Normal saline bolus 1 L resulted in improvement in hemodynamic stability. Follow-up ABG demonstrates improvement in pH and PCO2. WBC 18.6 this morning, on dexamethasone. Platelets have increased to 112. Sodium 151, potassium 5.5. Creatinine 1.6. 09/10: Troponin was only slightly elevated (0.071) after the acid-base derangement yesterday. EKG showed sinus tachycardia with nonspecific ST-T wave changes in the anterolateral leads. The patient remains on pressure control f 30, PI 20+ PEEP, FiO2 100%, PEEP 16. SpO2 97%. CVP 1314 this a.m. WBC 21.6, on steroids. Sodium 145. Potassium 4.8. Creatinine 1.4. Review of systems relevant to events:: Pulmonary Reason for ICU Addmission:: Now intubated. Prolonged ventilator course. - Medications: Medications reviewed and adjusted accordingly: Yes Vasopressors:: Norepinephrine Sedation:: Propofol/fentanyl. Physical Exam Vital Signs: Temp Pulse Resp BP Pulse Ox 99.0 F 118 H 30 H 97/58 L 97 09/10/20 10:34 09/10/20 07:54 09/10/20 10:34 09/10/20 10:34 09/10/20 10:34 Intake & Output 09/09/20 09/10/20 09/11/20 06:59 06:59 06:59 Intake Total 2397 3785 228 Output Total 1835 1780 Balance 562 2005 228 Weight 105.3 kg 108.5 kg Weight/Height Weight 108.5 kg Height 1.63 m General appearance: PRESENT: no acute distress, morbidly obese, well-developed, well-nourished Head exam: PRESENT: atraumatic, normocephalic Neck exam: ABSENT: carotid bruit, JVD, lymphadenopathy, thyromegaly Respiratory exam: PRESENT: clear to auscultation preston. ABSENT: rales, rhonchi, wheezes Cardiovascular exam: PRESENT: RRR, tachycardia. ABSENT: diastolic murmur, rubs, systolic murmur Pulses: PRESENT: normal dorsalis pedis pul GI/Abdominal exam: PRESENT: hypoactive bowel sounds, soft. ABSENT: distended, guarding, mass, organolmegaly, rebound, tenderness Gentrourinary exam: PRESENT: indwelling catheter Extremities exam: PRESENT: full ROM, pedal edema. ABSENT: calf tenderness, clubbing Musculoskeletal exam: PRESENT: normal inspection. ABSENT: deformity Psychiatric exam: ABSENT: agitated, anxious Tubes/Lines: PRESENT: Endotracheal Tube, Central Line - Right IJ, Other - Orogastric Laboratory/Radiographs Laboratory Results: 09/10/20 04:50 09/10/20 04:50 09/09/20 09/09/20 09/10/20 11:00 16:57 04:50 WBC RBC Hgb Hct MCV MCH MCHC RDW Plt Count Seg Neutrophils % Carbonic Acid 1.38 H 1.58 H 2.62 H HCO3/H2CO3 Ratio 22:1 21:1 11:1 ABG pH 7.44 7.42 7.15 L* ABG pCO2 45.7 H 52.6 H 87.0 H* ABG pO2 51.8 L 50.9 L 52.7 L ABG HCO3 30.6 H 33.2 H 29.7 H ABG O2 Saturation 87.8 L 86.0 L 75.2 L ABG Base Excess 5.7 7.5 -0.9 FiO2 100% 100 100% Sodium Potassium Chloride Carbon Dioxide Anion Gap BUN Creatinine Est GFR ( Amer) Glucose Calcium Ionized Calcium Sharon 1.17 Phosphorus Magnesium 09/10/20 09/10/20 09/10/20 04:50 04:50 08:05 WBC 21.6 H RBC 3.53 L Hgb 10.5 L Hct 32.8 L MCV 93 MCH 29.9 MCHC 32.1 RDW 15.4 H Plt Count 111 L Seg Neutrophils % Not Reportable Carbonic Acid 1.85 H HCO3/H2CO3 Ratio 17:1 ABG pH 7.33 L ABG pCO2 61.5 H ABG pO2 54.2 L ABG HCO3 31.9 H ABG O2 Saturation 85.2 L ABG Base Excess 4.8 FiO2 100% Sodium 145.4 H Potassium 4.8 Chloride 105 Carbon Dioxide 35 H Anion Gap 5 BUN 99 H Creatinine 1.36 H Est GFR ( Amer) > 60 Glucose 164 H Calcium 7.6 L Ionized Calcium Sharon Phosphorus 6.5 H Magnesium 3.4 H 08/30/20 08/31/20 08/31/20 11:17 19:21 23:00 Troponin I 0.013 < 0.012 < 0.012 NT-Pro-B Natriuret Pep 78 09/09/20 09/09/20 09/10/20 04:10 09:42 04:50 Troponin I 0.071 NT-Pro-B Natriuret Pep 158 261 212 Impressions: Chest/Abdomen CTA 08/30/20 00:00 IMPRESSION: 1. No evidence for acute pulmonary emboli. 2. Fairly extensive areas of consolidation and some scattered ground-glass opacities in the periphery of the lungs. Differential diagnosis includes pneumonia, with COVId-19 pneumonia included in the differential. Correlation suggested. 2. A hypoattenuated splenic lesion. Calcified splenic granuloma also noted. Further evaluation with ultrasound examination suggested. Chest X-Ray 09/10/20 05:00 IMPRESSION: No change in the diffuse parenchymal opacities most likely pneumonia. An element of congestive failure cannot be excluded. SUPPORT DEVICE(S) IN EXPECTED LOCATIONS. All labs, radiographs, diagnostic studies and EKGs were personally reviewed: Yes In addition, reports of radiographic and diagnostic studies were read: Yes Assessment and Plan - Diagnosis (1) Acute hypoxemic respiratory failure due to COVID-19 Is this a current diagnosis for this admission?: Yes Plan: * Titrate vent settings based on ABG results. * Wean PEEP as tolerated. * Completed remdesivir. * Continue Decadron. * Continue propofol/fentanyl. Titrate for RASS -2. (2) Morbid obesity with BMI of 40.0-44.9, adult Is this a current diagnosis for this admission?: Yes (3) Tachycardia Is this a current diagnosis for this admission?: Yes Plan: * With CVP 1314, will give for furosemide 40 mg IV single dose. * Change propofol to Precedex. (4) Type 2 diabetes mellitus Qualifiers: Diabetes mellitus [facility] insulin use: without lobsterman use Diabetes mellitus complication status: with hyperglycemia Qualified Code(s): E11.65 - Type 2 diabetes mellitus with hyperglycemia Is this a current diagnosis for this admission?: Yes Plan: * Continue Glucerna. * Off Lantus. Continue insulin infusion. * Accu-Cheks every 2 hours. (5) Thrombocytopenia Is this a current diagnosis for this admission?: Yes Plan: * Improving. * Continue to monitor platelets. * Continue argatroban. Critical Time Critical Time (minutes): 90 Level of Care: ICU -: 1. The care of a critical patient is a dynamic process. This note is a car sales representative synopsis but static in nature. The timeframe for treatments given in order is not necessarily the actual time these treatments may have been done. 2. This patient requires critical care secondary to ongoing requirements for therapy not offered or safe outside the critical care environment. Transfer to a lower level of care will result in altered life or limb morbidity and mortality. 3. Multidisciplinary rounds completed. 4. ABCDE bundle addressed.
[2020-09-10] MEDS: DEXMEDETOMIDINE IN 0.9 % NACL 400 MCG/100 ML RTUPB IV PRN ×3 (17:38→23:30)
[2020-09-10] MEDS ORDERED: FENTANYL CITRATE INJ/PF 100 MCG/2 ML AMPUL IV ONE (17:52)
[2020-09-10] MEDS ORDERED: FENTANYL CITRATE INJ/PF 100 MCG/2 ML AMPUL ONE (17:54)
[2020-09-10 18:51] LABS: TRIGLYCERIDES 262 mg/dL (<150)
[2020-09-10 19:02] LABS: DIRECT LDL 39 mg/dL (<100); VLDL CHOLESTEROL 52.4 mg/dL (10-31)
[2020-09-10] MEDS: NORMAL SALINE 100 ML with INSULIN REGULAR, HUMAN 100 UNIT IV PRN ×4 (20:00)
[2020-09-10] MEDS ORDERED: MIDAZOLAM 2 MG/2 ML INJ ONE ×2 (20:19→23:29)
[2020-09-10] MEDS ORDERED: DEXMEDETOMIDINE IN 0.9 % NACL 400 MCG/100 ML RTUPB IV ONE (20:19)
[2020-09-10] MEDS ORDERED: MIDAZOLAM 2 MG/2 ML INJ IV ONE (20:19)
[2020-09-10] MEDS ORDERED: FENTANYL CITRATE/PF 600 MCG/60 ML BAG IV PRN (20:28)
[2020-09-10] MEDS: ALBUTEROL SULFATE 0.083% NEB 2.5 MG/3 ML AMPUL NEB PRN (20:44)
[2020-09-11] MEDS: FENTANYL CITRATE/PF 600 MCG/60 ML BAG IV PRN ×5 (00:32→17:08)
[2020-09-11] MEDS: DEXMEDETOMIDINE IN 0.9 % NACL 400 MCG/100 ML RTUPB IV PRN ×6 (01:45→17:08)
[2020-09-11] MEDS ORDERED: MIDAZOLAM HCL 50 MG/100 ML RTUINJ ONE (02:12)
[2020-09-11] MEDS: MIDAZOLAM HCL 50 MG/100 ML RTUINJ IV PRN ×2 (02:15→14:23)
[2020-09-11] MEDS ORDERED: MIDAZOLAM HCL 50 MG/100 ML RTUINJ IV PRN (02:22)
[2020-09-11] MEDS ORDERED: MIDAZOLAM 2 MG/2 ML INJ IV ONE ×3 (03:00→23:29)
[2020-09-11 05:12] LABS: ARTERIAL BLOOD BASE EXCESS 1.9 mmol/L; ARTERIAL BLOOD FIO2 100%; ARTERIAL BLOOD H2CO3 1.78 mmol/L (1.05-1.35); ARTERIAL BLOOD HCO3 28.9 mmol/L (20-24); ARTERIAL BLOOD O2 SATURATION 86.5 % (94-98); ARTERIAL BLOOD PCO2 59.2 mmHg (35-45); ARTERIAL BLOOD PH 7.31 (7.35-7.45); ARTERIAL BLOOD PO2 57.4 mmHg (80-100); ARTERIAL BLOOD TOTAL CO2 30.8 mmol/L (23-27)
[2020-09-11 05:18] LABS: BLOOD UREA NITROGEN 85 mg/dL (7-20); CALCIUM 8.1 mg/dL (8.4-10.2); GLUCOSE 125 mg/dL (75-110); PHOSPHORUS 4.6 mg/dL (2.5-4.5); POTASSIUM 5.1 mmol/L (3.6-5.0)
[2020-09-11 05:23] LABS: CARBON DIOXIDE 37 mmol/L (22-30); CHLORIDE 107 mmol/L (98-107)
[2020-09-11 05:28] LABS: ANION GAP 4 (5-19)
[2020-09-11] MEDS: NORMAL SALINE 250 ML with ARGATROBAN 250 MG IV PRN ×2 (06:06)
[2020-09-11 06:55] LABS: HEMOGLOBIN 8.5 g/dL (13.5-17.0); MEAN CORPUSCULAR HEMOGLOBIN 29.9 pg (27.0-33.4); MEAN CORPUSCULAR HGB CONC 32.6 g/dL (32.0-36.0); MEAN CORPUSCULAR VOLUME 92 fl (80-97); RED BLOOD COUNT 2.84 10^6/uL (4.35-5.55); RED CELL DISTRIBUTION WIDTH 15.1 % (11.5-14.0); WHITE BLOOD COUNT 16.5 10^3/uL (4.0-10.5)
[2020-09-11 08:37] LABS: PLATELET COUNT 94 10^3/uL (150-450)
[2020-09-11] MEDS: BUDESONIDE NEB 0.25 MG/2 ML AMPUL NEB SCH ×2 (08:46→20:24)
[2020-09-11] MEDS ORDERED: MORPHINE SULFATE 10 MG/ML INJ ONE (08:53)
[2020-09-11] MEDS: DEXAMETHASONE SOD PHOSPHATE INJ 4 MG/1 ML VIAL IV SCH (09:03)
[2020-09-11] MEDS: ASCORBIC ACID 500 MG TABLET NG SCH (09:03)
[2020-09-11] MEDS: ASPIRIN 81 MG TABLET, CHEWABLE NG SCH (09:03)
[2020-09-11] MEDS: ZINC SULFATE 220 MG CAPSULE NG SCH (09:03)
[2020-09-11] MEDS: CHOLECALCIFEROL (D3) 400 UNIT TABLET NG SCH (09:03)
[2020-09-11] MEDS: OLOPATADINE HCL 0.1% OPH SOLN 5 ML OU SCH (09:09)
[2020-09-11] MEDS ORDERED: MORPHINE SULFATE 10 MG/5 ML ORAL SOLUTION UDCUP PO ONE (09:15)
--- NOTE | 2020-09-11 09:20 | RADIOLOGY REPORT (SQ) ---
EXAM DESCRIPTION: CHEST SINGLE VIEW IMAGES COMPLETED DATE/TIME: 09/11/2020 5:47 am REASON FOR STUDY: ETT tube COMPARISON: 09/10/2020 EXAM PARAMETERS: NUMBER OF VIEWS: One view TECHNIQUE: Single frontal radiograph of the chest. RADIATION DOSE: N/A LIMITATIONS: None. FINDINGS: TEMPORARY SUPPORT DEVICES:ETT in expected location. NG tube courses below the sudeep-diaphr agm in to the stomach. Central venous access catheter tip is in expected location. LUNGS AND PLEURA: Extensive parenchymal opacities. Small bilateral pleural effusions. No pneumothor ax. MEDIASTINUM AND HILAR STRUCTURES: No masses. Contour normal. HEART AND VASCULAR STRUCTURES: Heart size normal. Normal vascularity. Aorta normal for age BONES: No acute findings. OTHER: No other significant finding. IMPRESSION: No improvement in the parenchymal opacities or small effusions. SUPPORT DEVICE(S) IN EXPECTED LOCATIONS. TECHNICAL DOCUMENTATION: JOB ID: [id number] 2010 [employer]- All Rights Reserved Reading location - IP/workstation name: [email or web address]
[2020-09-11] MEDS ORDERED: FENTANYL CITRATE INJ/PF 100 MCG/2 ML AMPUL ONE (09:46)
[2020-09-11] MEDS ORDERED: FENTANYL CITRATE INJ/PF 250 MCG/5 ML AMPULE IV ONE (09:47)
[2020-09-11] MEDS ORDERED: FUROSEMIDE INJ/PF 40 MG/4 ML SDV IV ONE (10:00)
[2020-09-11] MEDS ORDERED: PANTOPRAZOLE SODIUM 40 MG VIAL IV SCH (10:00)
[2020-09-11] MEDS ORDERED: MORPHINE SULFATE 10 MG/ML INJ IV ONE (10:00)
[2020-09-11] MEDS ORDERED: FENTANYL CITRATE INJ/PF 100 MCG/2 ML AMPUL IV ONE (10:30)
[2020-09-11 15:26] LABS: ARTERIAL BLOOD BASE EXCESS 5.6 mmol/L; ARTERIAL BLOOD H2CO3 2.03 mmol/L (1.05-1.35); ARTERIAL BLOOD HCO3 33.5 mmol/L (20-24); ARTERIAL BLOOD O2 SATURATION 52.9 % (94-98); ARTERIAL BLOOD PCO2 67.6 mmHg (35-45); ARTERIAL BLOOD PH 7.31 (7.35-7.45); ARTERIAL BLOOD TOTAL CO2 35.6 mmol/L (23-27)
[2020-09-11 15:28] LABS: ARTERIAL BLOOD FIO2 100%; ARTERIAL BLOOD PO2 31.5 mmHg (80-100)
[2020-09-11 15:51] LABS: ARTERIAL BLOOD BASE EXCESS 7.9 mmol/L; ARTERIAL BLOOD H2CO3 1.72 mmol/L (1.05-1.35); ARTERIAL BLOOD O2 SATURATION 78.5 % (94-98); ARTERIAL BLOOD PH 7.39 (7.35-7.45); ARTERIAL BLOOD TOTAL CO2 35.8 mmol/L (23-27)
[2020-09-11 15:55] LABS: ARTERIAL BLOOD FIO2 100%
[2020-09-11] MEDS ORDERED: MILRINONE LACTATE/D5W 20 MG/100 ML RTUINJ IV PRN (16:03)
[2020-09-11] MEDS: DEXTROSE 5%-WATER 250 ML with NOREPINEPHRINE BITARTRATE 4 MG IV PRN ×2 (16:53)
[2020-09-11] MEDS ORDERED: ALTEPLASE INJ 100 MG VIAL ONE (17:09)
[2020-09-11] MEDS ORDERED: DOPAMINE HCL/DEXTROSE 5%-WATER 800 MG/250 ML RTUINJ IV ONE (17:17)
[2020-09-11] MEDS ORDERED: EPINEPHRINE INJ 1 MG/10 ML DISP.SYRIN ONE (17:17)
[2020-09-11] MEDS ORDERED: VASOPRESSIN INJ 20 UNIT/1 ML VIAL ONE (17:17)
[2020-09-11 17:19] LABS: ANION GAP 6 (5-19); BLOOD UREA NITROGEN 81 mg/dL (7-20); CALCIUM 8.3 mg/dL (8.4-10.2); CARBON DIOXIDE 35 mmol/L (22-30); CHLORIDE 108 mmol/L (98-107); GLUCOSE 118 mg/dL (75-110); POTASSIUM 4.8 mmol/L (3.6-5.0)
[2020-09-11] MEDS ORDERED: SODIUM BICARBONATE 8.4% INJ 50 MEQ/50 ML DISP.SYRIN ONE ×3 (17:23→17:48)
[2020-09-11] MEDS ORDERED: EPINEPHRINE INJ 1 MG/10 ML DISP.SYRIN IV ONE ×2 (17:25→17:29)
--- NOTE | 2020-09-11 18:03 | EKG REPORT ---
SEVERITY:- ABNORMAL ECG - SINUS TACHYCARDIA ABNORMAL T, CONSIDER ISCHEMIA, LATERAL LEADS BORDERLINE PROLONGED QT INTERVAL : Confirmed by: Luca Treviño MD 11-Sep-2020 18:03:07
--- NOTE | 2020-09-11 18:06 | PDOC CRITICAL CARE PROG REPORT ---
General Date:: 09/11/20 ICU Day:: 10 Ventilator Day:: 10 Hospital Day:: 13 Resuscitation Status: Full Code Events in the past 12 to 24 Hours:: This 80-year-old -[place] male was admitted on 08/30/2020 with COVID-19 pneumonia. He was originally admitted to [facility]. He required BiPAP support and became progressively hypoxemic. He started demonstrating confusion and reported getting tired. He was transferred to the ICU on 09/02/2020, where he was intubated and placed on mechanical ventilatory support. 09/07: On PRVC 26/450/100%/18. ABG this a.m.: 7.39/60/59. Nurse reports patient received a single dose of furosemide 20 mg IV yesterday. shiftman reports repeat dosing overnight. Portably had decent (approximately 700 mL) diuresis but no significant difference in oxygenation. On propofol for sedation. RASS - 3. 09/08: On pressure control of 26, PI 14+ PEEP, FiO2 100%, PEEP 16. ABG this a.m.: 7.35/67/61. On propofol/fentanyl for sedation. Right IJ CVC placed yesterday. CVP 10 after diuresis yesterday. Diuretic therapy was withheld overnight. CVP now 1415. Creatinine 1.29, slightly increased from yesterday. On Glucerna. Also on insulin infusion. Glucose now under control. On remde sivir/Decadron for COVID-19 pneumonia. WBC count 14.4. Switched from Lovenox to argatroban yesterday. Platelets 81 today. Heparin-induced PF4 antibody test sent this morning. 09/09: Overnight coverage reports that the patient started demonstrating hemodynamic instability (increasing tachycardia, followed by hypotension). ABG was obtained and pH was found to be 7.07.1 with PCO2 100+. Vent settings were changed: Pressure control f 30, PI 16+ PEEP, FiO2 100%, PEEP 16. No improvement was observed. Despite deterioration in ventilation, the patient maintained good oxygenation throughout the night. CVP this morning 89. SvO2 49%. Vent settings were adjusted: Pressure control f 30, PI 21+ PEEP, FiO2 100%, PEEP of 12. Tidal volumes improved to [id number]. Normal saline bolus 1 L resulted in improvement in hemodynamic stability. Follow-up ABG demonstrates improvement in pH and PCO2. WBC 18.6 this morning, on dexamethasone. Platelets have increased to 112. Sodium 151, potassium 5.5. Creatinine 1.6. 09/10: Troponin was only slightly elevated (0.071) after the acid-base derangemen t yesterday. EKG showed sinus tachycardia with nonspecific ST-T wave changes in the anterolateral leads. The patient remains on pressure control f 30, PI 20+ PEEP, FiO2 100%, PEEP 16. SpO2 97%. CVP 1314 this a.m. WBC 21.6, on steroids. Sodium 145. Potassium 4.8. Creatinine 1.4. Review of systems relevant to events:: Pulmonary Reason for ICU Addmission:: Now intubated. Prolonged ventilator course. - Medications: Medications reviewed and adjusted accordingly: Yes Vasopressors:: Norepinephrine Sedation:: Versed/Precedex/fentanyl. Physical Exam Vital Signs: Temp Pulse Resp BP Pulse Ox 97.9 F 108 H 30 H 137/73 H 88 L 09/11/20 06:49 09/11/20 08:46 09/11/20 08:46 09/11/20 06:49 09/11/20 08:46 Intake & Output 09/10/20 09/11/20 09/12/20 06:59 06:59 06:59 Intake Total 3785 3034 192 Output Total 1780 3170 250 Balance 2004 Weight 108.5 kg 105.9 kg Weight/Height Weight 105.9 kg Height 1.63 m General appearance: PRESENT: no acute distress, morbidly obese, well-developed, well-nourished Head exam: PRESENT: atraumatic, normocephalic Eye exam: PRESENT: conjunctiva pink, EOMI, PERRLA. ABSENT: scleral icterus Mouth exam: PRESENT: moist, tongue midline Neck exam: ABSENT: carotid bruit, JVD, lymphadenopathy, thyromegaly Respiratory exam: PRESENT: decreased breath sounds, rales, symmetrical, tachypnea. ABSENT: rhonchi Cardiovascular exam: PRESENT: RRR, tachycardia. ABSENT: diastolic murmur, rubs, systolic murmur GI/Abdominal exam: PRESENT: hypoactive bowel sounds, soft. ABSENT: distended, guarding, mass, organolmegaly, rebound, tenderness Gentrourinary exam: PRESENT: indwelling catheter Extremities exam: PRESENT: full ROM, pedal edema, +1 edema. ABSENT: calf tenderness, clubbing Musculoskeletal exam: PRESENT: normal inspection. ABSENT: deformity Neurological exam: PRESENT: altered Psychiatric exam: ABSENT: agitated, anxious Skin exam: PRESENT: dry, intact, warm. ABSENT: cyanosis, rash Tubes/Lines: PRESENT: Endotracheal Tube, Central Line - Right IJ, Other - Orogastric Laboratory/Radiographs Laboratory Results: 09/11/20 06:28 09/11/20 04:15 09/10/20 09/10/20 09/11/20 11:20 17:10 04:15 WBC RBC Hgb Hct MCV MCH MCHC RDW Plt Count Carbonic Acid 1.80 H 1.78 H HCO3/H2CO3 Ratio 18:1 16:1 ABG pH 7.36 7.31 L ABG pCO2 59.9 H 59.2 H ABG pO2 49.3 L 57.4 L ABG HCO3 33.4 H 28.9 H ABG O2 Saturation 82.5 L 86.5 L ABG Base Excess 6.6 1.9 FiO2 100 100% Sodium Potassium Chloride Carbon Dioxide Anion Gap BUN Creatinine Est GFR ( Amer) Glucose Calcium Ionized Calcium Sharon 1.19 Phosphorus Magnesium Triglycerides 262 H Cholesterol 104.20 LDL Cholesterol Direct 39 VLDL Cholesterol 52.4 H HDL Cholesterol 18 L 09/11/20 09/11/20 09/11/20 04:15 04:15 06:28 WBC Cancelled 16.5 H RBC Cancelled 2.84 L Hgb Cancelled 8.5 L Hct Cancelled 26.0 L MCV Cancelled 92 MCH Cancelled 29.9 MCHC Cancelled 32.6 RDW Cancelled 15.1 H Plt Count Cancelled 94 L Carbonic Acid HCO3/H2CO3 Ratio ABG pH ABG pCO2 ABG pO2 ABG HCO3 ABG O2 Saturation ABG Base Excess FiO2 Sodium 148.3 H Potassium 5.1 H Chloride 107 Carbon Dioxide 37 H Anion Gap 4 L BUN 85 H Creatinine 1.20 Est GFR ( Amer) > 60 Glucose 125 H Calcium 8.1 L Ionized Calcium Sharon Phosphorus 4.6 H Magnesium 3.5 H Triglycerides Cholesterol LDL Cholesterol Direct VLDL Cholesterol HDL Cholesterol 08/30/20 08/31/20 08/31/20 11:17 19:21 23:00 Troponin I 0.013 < 0.012 < 0.012 NT-Pro-B Natriuret Pep 78 11/06/20 11/06/20 11/07/20 04:10 09:42 04:50 Troponin I 0.071 NT-Pro-B Natriuret Pep 158 261 212 09/10/20 09/10/20 09/10/20 11:20 14:40 22:30 Troponin I 0.061 0.063 0.050 NT-Pro-B Natriuret Pep 09/11/20 04:15 Troponin I NT-Pro-B Natriuret Pep 250 Impressions: Chest/Abdomen CTA 08/30/20 00:00 IMPRESSION: 1. No evidence for acute pulmonary emboli. 2. Fairly extensive areas of consolidation and some scattered ground-glass opacities in the periphery of the lungs. Differential diagnosis includes pneumonia, with COVId-19 pneumonia included in the differential. Correlation suggested. 2. A hypoattenuated splenic lesion. Calcified splenic granuloma also noted. Further evaluation with ultrasound examination suggested. Chest X-Ray 09/11/20 05:00 IMPRESSION: No improvement in the parenchymal opacities or small effusions. SUPPORT DEVICE(S) IN EXPECTED LOCATIONS. All labs, radiographs, diagnostic studies and EKGs were personally reviewed: Yes In addition, reports of radiographic and diagnostic studies were read: Yes Assessment and Plan - Diagnosis (1) Acute hypoxemic respiratory failure due to COVID-19 Is this a current diagnosis for this admission?: Yes Plan: * Titrate vent settings based on ABG results. * Wean PEEP as tolerated. * Completed remdesivir. * Continue Decadron. * Continue Versed/Precedex/fentanyl. Titrate for RASS -2. * Furosemide 40 mg IV single dose this morning. (2) Morbid obesity with BMI of 40.0-44.9, adult Is this a current diagnosis for this admission?: Yes Plan: * Chronic. Rrisk factor for mortality. * His truncal obesity will impede proning him, as his abdomen is certainly going to increase restriction in the prone position. * On chest x-ray, it appears his left lung seems to demonstrate less airspace disease than his right. Will try positioning the patient left side down. (3) Type 2 diabetes mellitus Qualifiers: Diabetes mellitus residential insulin use: without residential use Diabetes mellitus complication status: with hyperglycemia Qualified Code(s): E11.65 - Type 2 diabetes mellitus with hyperglycemia Is this a current diagnosis for this admission?: Yes Plan: * Continue Glucerna. * Off Lantus. Continue insulin infusion. * Accu-Cheks every 2 hours. (4) Tachycardia Is this a current diagnosis for this admission?: Yes (5) Thrombocytopenia Is this a current diagnosis for this admission?: Yes Plan: * Improving after change to argatroban, clinically suspicious for heparin- induced thrombocytopenia. * Continue to monitor platelets. * Continue argatroban. Critical Time Critical Time (minutes): 120 Level of Care: ICU -: 1. The care of a critical patient is a dynamic process. This note is a auto claim representative synopsis but static in nature. The timeframe for treatments g iven in order is not necessarily the actual time these treatments may have been done. 2. This patient requires critical care secondary to ongoing requirements for therapy not offered or safe outside the critical care environment. Transfer to a lower level of care will result in altered life or limb morbidity and mortality. 3. Multidisciplinary rounds completed. 4. ABCDE bundle addressed.
--- NOTE | 2020-09-11 18:33 | Death Summary ---
Summary Date : 09/11/20 Time of :: 17:56 Autopsy: No Resuscitation Status: Full Code - Final Diagnosis (1) Acute hypoxemic respiratory failure due to COVID-19 Is this a current diagnosis for this admission?: Yes (2) Morbid obesity with BMI of 40.0-44.9, adult Is this a current diagnosis for this admission?: Yes (3) Type 2 diabetes mellitus Is this a current diagnosis for this admission?: Yes (4) Tachycardia Is this a current diagnosis for this admission?: Yes (5) Thrombocytopenia Is this a current diagnosis for this admission?: Yes Hospital Course:: This 80-year-old -[place] male was admitted on 08/30/2020 with COVID-19 pneumonia. He was originally admitted to [facility]. He required BiPAP support and became progressively hypoxemic. He started demonstrating confusion and reported getting tired. He was transferred to the ICU on 09/02/2020, where he was intubated and placed on mechanical ventilatory support. On mechanical ventilatory support, the patient continued to progress into worsening acute hypoxemic respiratory failure and developed acute respiratory distress syndrome. His clinical course was further complicated by development of shock physiology, compatible with cardiogenic shock. He did have mild elevations in troponin, compatible with myocardial ischemia/demand ischemia. Additionally, he had elevated central venous pressures and progressively worsening hypoxemia, which raised clinical suspicion for the possibility of pulmonary embolism or perhaps more likely overwhelming clot burden secondary to COVID-19. Just prior to the patient's cardiac arrest, I had contacted the patient's to discuss the potential role for TPA, given his rapid clinical deterioration today. Despite the known risks for bleeding complications, including stroke, the patient's had agreed to administration. However, prior to administering the medication, the patient progressed into severe bradycardia and eventual asystole. Despite 25 minutes of ACLS/CPR efforts, ROSC could not be achieved. The patient's and one of their sons did present to the bedside. The patient's instructed us to discontinue CPR.
--- NOTE | 2020-09-11 18:33 | Progress Note ---
Provider Note Provider Note: Called to see patient regarding acute oxygen desaturation, hypotension and bradycardia. Patient rapidly deteriorated to asystole. ACLS protocol was followed. CPR was initiated. Despite 25 minutes of ACLS, ROSC was not able to be achieved. The patient's family had been called and the patient's and 1 son presented to the bedside during CPR. The patient's instructed us to stop CPR at 1756. See [facility] notes for specific interventions, which included: Multiple amps of epinephrine, 3 attempts to defibrillate for ventricular fibrillation, several amps of sodium bicarbonate, 1 amp of atropine, 100 mg lidocaine IV push. NOTE Final examination: No response to verbaL or noxious stimuli. Absent heart sounds. Absent breath sounds. No peripheral pulses. No carotid pulses. Pupils are fixed and dilated. No corneal reflex. No cough/gag. Patient pronounced at 17:56. and son at bedside. fur examiner declined examination
[2020-09-11] MEDS ORDERED: ALTEPLASE INJ 100 MG VIAL IV ONE (19:04)
[2020-09-11] MEDS ORDERED: DOPAMINE HCL/DEXTROSE 5%-WATER 800 MG/250 ML RTUINJ IV PRN (19:05)
[2020-09-11] MEDS ORDERED: DEXTROSE 5%-WATER 250 ML with VASOPRESSIN 100 UNIT IV PRN ×4 (19:05→20:31)
[2020-09-11 19:20] VITALS: BP 60/31
== END 2020-09-11 21:00 | DRG 207 ==
LOC: ER 11:02 → EH 15:02 → 3N 17:13 → ICU 09-02 16:16
PROVIDERS: ADMIT Anesthesiology; ATTEND Anesthesiology
PROC: 5A09457 Assistance with Respiratory Ventilation, 24-96 Consecutive Hours, Continuous Positive Airway Pressure (ICD-10-PCS; 2020-08-30)
PROC: XW13325 Transfusion of Convalescent Plasma (Nonautologous) into Peripheral Vein, Percutaneous Approach, New Technology Group 5 (ICD-10-PCS; 2020-09-01)
PROC: 5A1955Z Respiratory Ventilation, Greater than 96 Consecutive Hours (ICD-10-PCS; principal; 2020-09-02)
PROC: 0BH17EZ Insertion of Endotracheal Airway into Trachea, Via Natural or Artificial Opening (ICD-10-PCS; 2020-09-02)
PROC: XW033E5 Introduction of Remdesivir Anti-infective into Peripheral Vein, Percutaneous Approach, New Technology Group 5 (ICD-10-PCS; 2020-09-02)
PROC: XW033E5 Introduction of Remdesivir Anti-infective into Peripheral Vein, Percutaneous Approach, New Technology Group 5 (ICD-10-PCS; 2020-09-06)
PROC: 02HV33Z Insertion of Infusion Device into Superior Vena Cava, Percutaneous Approach (ICD-10-PCS; 2020-09-07)
DX: U07.1 COVID-19 (principal); J12.89 Other viral pneumonia; J96.01 Acute respiratory failure with hypoxia; Z68.41 Body mass index [BMI] 40.0-44.9, adult; I10 Essential (primary) hypertension; E78.5 Hyperlipidemia, unspecified; D69.6 Thrombocytopenia, unspecified; E11.65 Type 2 diabetes mellitus with hyperglycemia; M19.90 Unspecified osteoarthritis, unspecified site; E66.01 Morbid (severe) obesity due to excess calories; Z87.891 Personal history of nicotine dependence; Z79.899 Other long term (current) drug therapy; Z78.1 Physical restraint status; Z83.3 Family history of diabetes mellitus; Z79.84 Long term (current) use of oral hypoglycemic drugs; Z79.82 Long term (current) use of aspirin
CPT/HCPCS: 31500; 36415; 36430; 36556; 36600; 71045; 71275; 80048; 80053; 80061; 81001; 82330; 82728; 82803; 82962; 83605; 83615; 83735; 83880; 84100; 84132; 84134; 84484; 85025; 85027; 85379; 85384; 85610; 85730; 86022; 86140; 86900; 86901; 87040; 87070; 87077; 87186; 87205; 87324; 87449; 87635; 92950; 93005; 93010; 94002; 94003; 94640; 94660; 96361; 96365; 99222; 99285; 99291; 99292; C9113; C9803; J0171; J0330; J0456; J0696; J0883; J1100; J1170; J1265; J1650; J1815; J1940; J2060; J2250; J2260; J2270; J2704; J2997; J3010; J3490; J7030; J7040; J7050; J7060; J7120; J7613